=== PATIENT | female | born 1930 | race Caucasian/White ===

== ENCOUNTER 2016-08-29 15:49 | Inpatient (IN) | payer OTHER ==
[~2016-08-29] VITALS: Ht 157.5 cm; Wt 56.5 kg
[~2016-08-29 15:49] MED LIST: AMLO5TAB2 PO; CALCTAB5 PO; CARV6.252 PO; CHOL100010 PO; FURO-85 PO; LEVO75TA5 PO; NEPA0.6D OPL; PRAV10TA39 PO; PRED1SUS3 OPL; WARF5TAB90 PO
[2016-08-29] MEDS ORDERED: SODIUM CHLORIDE 0.9% 1000ML 1,000 ML IV STA (16:11)
[2016-08-29] MEDS ORDERED: CYAN1SUB2 PO (16:19)
[2016-08-29] MEDS ORDERED: CALC-478 PO (16:19)
[2016-08-29] MEDS ORDERED: WARF5TAB90 PO (16:19)
[2016-08-29] MEDS ORDERED: PRVC10 PO (16:19)
[2016-08-29] MEDS ORDERED: FSM70 PO (16:19)
[2016-08-29] MEDS ORDERED: BYS/5 PO (16:19)
[2016-08-29] MEDS ORDERED: CHOL1CAP67 PO (16:19)
[2016-08-29] MEDS ORDERED: WARF2TAB PO (16:19)
--- NOTE | 2016-08-29 16:45 | DIAGNOSTIC IMAGING REPORT ---
CHEST ONE VIEW PORTABLE CLINICAL HISTORY: Weakness. COMPARISON STUDY: Chest radiograph October 01, 2012. FINDINGS: Evaluation is significantly compromised due to difficulty patient positioning. There is no pneumothorax or pleural effusion. There is no lobar consolidation. There is no evidence of pulmonary edema. Apparent right hilar fullness is likely due to patient rotation. IMPRESSION: 1. Study significantly compromised due to difficulty with positioning. 2. No definite acute cardiopulmonary findings. Electronically signed by: Mike Rosales M.D. 08/29/2016 4:43 PM Dictated Date/Time: 08/29/2016 4:42 PM
[2016-08-29 16:57] LABS: BASO % 0.4 %; BASO ABS # 0.02 K/uL (0-0.2); COMPLETE YES; EOS % 0.2 %; HEMATOCRIT 30.6 % (37-47); IG% 0.2 %; LYMPH % 13.2 %; LYMPH ABS # 0.59 K/uL (1.2-3.4); MEAN CELL VOLUME 89.5 fL (80-100); MEAN CORPUSCULAR HEMOGLOBIN 28.7 pg (25-34); MEAN PLATELET VOLUME 9.1 fL (7.4-10.4); MONO % 8.5 %; NEUT % 77.5 %; PLATELET COUNT 263 K/uL (130-400); RED BLOOD COUNT 3.42 M/uL (4.2-5.4); WHITE BLOOD COUNT 4.48 K/uL (4.8-10.8)
[2016-08-29 17:03] LABS: INR 2.3 (0.9-1.1); PARTIAL THROMBOPLASTIN RATIO 1.5; PROTHROMBIN TIME (PATIENT) 25.8 SECONDS (9.0-12.0)
[2016-08-29 17:06] LABS: ALT/SGPT 18 U/L (12-78); AST/SGOT 18 U/L (15-37); BLOOD UREA NITROGEN 29 mg/dl (7-18); BUN/CREATININE RATIO 16.8 (10-20); CALCIUM 8.9 mg/dl (8.5-10.1); CARBON DIOXIDE 25 mmol/L (21-32); CHLORIDE 109 mmol/L (98-107); GLUCOSE 156 mg/dl (70-99); MAGNESIUM 2.5 mg/dl (1.8-2.4); POTASSIUM 4.2 mmol/L (3.5-5.1); SODIUM 142 mmol/L (136-145)
--- NOTE | 2016-08-29 17:06 | DIAGNOSTIC IMAGING REPORT ---
HEAD CT NONCONTRAST CT DOSE: 614.27 mGy.cm HISTORY: EVALUATE WEAKNESS TECHNIQUE: Multiaxial CT images of the head were performed without the use of intravenous contrast. Automated exposure control was utilized for this study. Comparison: Head CT 09/29/2012. Findings: The paranasal sinuses and mastoid air cells are clear. The calvarium and skull base are intact. Moderate atrophy and microvascular ischemic changes again noted. There is no hematoma, midline shift, acute infarct. No change in the 2.9 cm hyperdense suprasellar lesion. Impression: No significant change compared to the prior study. No acute intracranial abnormality. No significant change in the 2.9 cm hyperdense suprasellar lesion. Electronically signed by: Berny Nath M.D. 08/29/2016 5:05 PM Dictated Date/Time: 08/29/2016 4:59 PM
[2016-08-29 17:14] LABS: ALKALINE PHOSPHATASE 61 U/L (45-117); CKMB/CK RATIO 2.3 (0-3.0); THYROID STIMULATING HORMONE 0.589 uIu/ml (0.300-4.500)
[2016-08-29] MEDS ORDERED: ONDANSETRON INJ 2 MG/ML 2 ML VIAL IV PRN (19:30)
[2016-08-29] MEDS ORDERED: ACETAMINOPHEN 325 MG TAB PO PRN (19:30)
[2016-08-29] MEDS ORDERED: MAGNESIUM HYDROXIDE SUSP 30 ML UDC PO PRN (19:30)
--- NOTE | 2016-08-29 19:39 | History and Physical ---
History & Physical Date & Time of Service: August 29, 2016 at 19:25 Chief Complaint: AMS Primary Care Physician: Gary Francis M.D. History of Present Illness Source: patient Pt is a 85 yo female who presents to the ER with complaints of confusion that has been worsening for over several yrs according to pts daughter. Pt is a poor historian and only oriented to name. Per daughter pt has been forgetting to eat, forgetting family members and also has been sedentary for most of the day. 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 Pt denies LOC, lightheadedness, headache, fevers, chills, diaphoresis, visual changes, neck pain, chest pain, breathing difficulties, nausea, vomiting, abdominal pain , back pain, melena, hematochezia, urinary symptoms, numbness, weakness, lymphadenopathy, rash, or other complaints. Past Medical/Surgical History Medical Problems: (1) Benign hypertension Status: Chronic (2) HYPERLIPIDEMIA NEC/NOS Status: Chronic (3) Hypertension Status: Chronic (4) INTERTROCHANTERIC FX-CL Status: Resolved Family History Cancer Heart disease Social History Smoking Status: Never Smoker Drug Use: none Marital Status: Occupational Status: retired Immunizations History of Influenza Vaccine: Yes History of Tetanus Vaccine?: Unknown History of Pneumococcal: No History of Hepatitis B Vaccine: Unknown Allergies Coded Allergies: No Known Allergies (Unverified , 08/29/16) Home Medications Scheduled Alendronate Sodium (Alendronate Sodium), 70 MG PO WK Amlodipine Besylate (Norvasc), 5 MG PO QAM Pshmqri-Vhccetsll-Onhu (Calcium & Magnesium + Zin 334-134-5 mg), 1 TAB PO DAILY Cholecalciferol (Vitamin D-3), 1,000 MG PO DAILY Cyanocobalamin (B-12-Sl), 500 MCG PO DAILY Levothyroxine Sodium (Levothyroxine Sodium), 75 MCG PO DAILY Nebivolol Hcl (Bystolic), 5 MG PO DAILY Pravastatin Sod (Pravastatin Sodium), 10 MG PO HS Warfarin Sodium (Coumadin), 2 MG PO MWF Warfarin Sodium (Coumadin), 2.5 MG PO 2XWK Review of Systems Constitutional: No chills, No fever Eyes: No eye pain, No worsening of vision ENT: No hearing loss, No unusual epistaxis Respiratory: No cough, No dyspnea on exertion, No shortness of breath, No sputum, No wheezing Cardiovascular: No PND, No chest pain, No edema, No orthopnea Abdomen: No diarrhea, No nausea, No pain, No vomiting Musculoskeletal: No joint pain, No muscle pain Genitourinary - Female: No dysuria, No urinary frequency, No urinary urgency Neurologic: No numbness/tingling, No paralysis, No weakness Psychiatric: No anhedonism, No anxiety, No depression symptoms Integumentary: No itch, No rash Physical Exam Vital Signs Date Time Temp Pulse Resp B/P Pulse Ox O2 Delivery O2 Flow Rate FiO2 08/29/16 17:49 80 19 134/58 95 Room Air 08/29/16 16:05 36.6 85 18 166/77 94 Room Air 08/29/16 16:02 86 08/29/16 15:57 94 Room Air General Appearance: WD/WN, no apparent distress Head: normocephalic, atraumatic Eyes: normal inspection, PERRL, EOMI Neck: supple, no adenopathy, thyroid normal Respiratory/Chest: chest non-tender, lungs clear, normal breath sounds Cardiovascular: regular rate, rhythm, no edema, no gallop, no JVD Abdomen/GI: normal bowel sounds, non tender, soft Back: normal inspection, no CVA tenderness, no muscle spasm, normal range of motion Extremities/Musculoskelatal: normal inspection, no calf tenderness, normal capillary refill, no pedal edema Neurologic/Psych: alert, + disoriented Skin: normal color, warm/dry, no rash Diagnostics Laboratory Results Results Past 24 Hours Test 08/29/16 16:02 08/29/16 16:35 Range/Units Bedside Glucose 180 70-90 mg/dl White Blood Count 4.48 4.8-10.8 K/uL Red Blood Count 3.42 4.2-5.4 M/uL Hemoglobin 9.8 12.0-16.0 g/dL Hematocrit 30.6 37-47 % Mean Corpuscular Volume 89.5 80-100 fL Mean Corpuscular Hemoglobin 28.7 25-34 pg Mean Corpuscular Hemoglobin Concent 32.0 32-36 g/dl Platelet Count 263 130-400 K/uL Mean Platelet Volume 9.1 7.4-10.4 fL Neutrophils (%) (Auto) 77.5 % Lymphocytes (%) (Auto) 13.2 % Monocytes (%) (Auto) 8.5 % Eosinophils (%) (Auto) 0.2 % Basophils (%) (Auto) 0.4 % Neutrophils # (Auto) 3.47 1.4-6.5 K/uL Lymphocytes # (Auto) 0.59 1.2-3.4 K/uL Monocytes # (Auto) 0.38 0.11-0.59 K/uL Eosinophils # (Auto) 0.01 0-0.5 K/uL Basophils # (Auto) 0.02 0-0.2 K/uL RDW Standard Deviation 47.4 36.4-46.3 fL RDW Coefficient of Variation 14.4 11.5-14.5 % Immature Granulocyte % (Auto) 0.2 % Immature Granulocyte # (Auto) 0.01 0.00-0.02 K/uL Prothrombin Time 25.8 9.0-12.0 SECONDS Prothromb Time International Ratio 2.3 0.9-1.1 Activated Partial Thromboplast Time 38.2 21.0-31.0 SECONDS Partial Thromboplastin Ratio 1.5 Sodium Level 142 136-145 mmol/L Potassium Level 4.2 3.5-5.1 mmol/L Chloride Level 109 98-107 mmol/L Carbon Dioxide Level 25 21-32 mmol/L Anion Gap 8.0 3-11 mmol/L Blood Urea Nitrogen 29 7-18 mg/dl Creatinine 1.70 0.60-1.20 mg/dl Est Creatinine Clear Calc Drug Dose 18.4 ml/min Estimated GFR () 30.9 Estimated GFR (Non- 26.6 BUN/Creatinine Ratio 16.8 10-20 Random Glucose 156 70-99 mg/dl Calcium Level 8.9 8.5-10.1 mg/dl Magnesium Level 2.5 1.8-2.4 mg/dl Total Bilirubin 0.3 0.2-1 mg/dl Direct Bilirubin 0.1 0-0.2 mg/dl Aspartate Amino Transf (AST/SGOT) 18 15-37 U/L Alanine Aminotransferase (ALT/SGPT) 18 12-78 U/L Alkaline Phosphatase 61 45-117 U/L Total Creatine Kinase 64 26-192 U/L Creatine Kinase MB 1.5 0.5-3.6 ng/ml Creatine Kinase MB Ratio 2.3 0-3.0 Troponin I < 0.015 0-0.045 ng/ml Total Protein 7.7 6.4-8.2 gm/dl Albumin 3.4 3.4-5.0 gm/dl Lipase 295 73-393 U/L Thyroid Stimulating Hormone (TSH) 0.589 0.300-4.500 uIu/ml Impression Assessment and Plan Pt is a pleasant 85 yo female who presents with worsening altered mental status Confusion worsening over the past few yrs likely secondary to dementia. CT head no acute intracranial abnormality with no significant change in the 2.9 cm hyperdense suprasellar lesion. Will consult PT/OT. Will further evaluate anemia with iron studies, B12 and folate and check ammonia as well. No likely infectious cause at this time. Daughter ok with placement. Will consult social media community manager. HTN cont norvasc and bystolic Previous DVT from 2013, ?if coumadin still needed Pt is FULL CODE VTE Prophylaxis VTE Risk Assessment Done? Y/N: Yes Risk Level: Moderate
[2016-08-29 20:24] LABS: FERRITIN 210.6 ng/ml (8.0-388.0)
[2016-08-29 20:35] VITALS: BP 130/82; PULSE 73; TEMP 37.1; O2SAT 94; Ht 157.5 cm; Wt 56.5 kg
[2016-08-29] MEDS: WARFARIN SOD 2 MG TAB PO SCH (21:12)
[2016-08-29] MEDS: PRAVASTATIN SOD 10 MG TAB PO SCH (21:12)
[2016-08-30 00:16] VITALS: BP 153/77; PULSE 71; TEMP 37.1; O2SAT 94
[2016-08-30 01:11] LABS: URINE APPEARANCE CLEAR (CLEAR); URINE BILIRUBIN NEG (NEG); URINE COLOR YELLOW; URINE NITRITE NEG (NEG); URINE PH 7.5 (4.5-7.5); URINE SPECIFIC GRAVITY 1.012 (1.000-1.030); UROBILINOGEN NEG (NEG)
[2016-08-30 01:14] LABS: MANUAL MICROSCOPIC REQUIRED? NO; REVIEW REQ? NO
--- NOTE | 2016-08-30 01:22 | EMERGENCY ROOM VISIT NOTE ---
History Report prepared by [place]: Erin Sims Under the Supervision of: Dr. Alexander Vidales M.D. First contact with patient: 16:01 Chief Complaint: ALTERED MENTAL STATUS Stated Complaint: AMS History of Present Illness The patient is an 85 year old female who presents to the Emergency Room with complaints of a decrease in mental status that worsened today. Per nursing staff, the patient has a history of dementia and has been increasingly combative and aggressive with her family. Nursing staff reports that the patient arrived disoriented and disheveled. Nursing staff notes that the patient's daily activities have suffered due to the decrease in mental status. The patient's daughter notes that the patient has been increasingly confused, but states that the patient does not believe her. The patient states that she has been experiencing left leg pain. The patient reports a history of hypertension and a pervious back surgery. Pt denies LOC, lightheadedness, headache, fevers, chills, diaphoresis, visual changes, neck pain, chest pain, breathing difficulties, nausea, vomiting, abdominal pain, back pain, melena, hematochezia, urinary symptoms, numbness, weakness, lymphadenopathy, rash, or other complaints. Source of History: patient, family (daughter), nursing staff Onset: today Position: other (global) Quality: other (decrease in mental status) Timing: worsening Note: Associated Symptoms: disoriented, disheveled, combative and aggressive with family, increasingly confused Review of Systems See HPI for pertinent positives and negatives. A total of ten systems were reviewed and were otherwise negative. Past Medical & Surgical Medical Problems: (1) Altered mental status (2) Benign hypertension (3) HYPERLIPIDEMIA NEC/NOS (4) Hypertension (5) INTERTROCHANTERIC FX-CL Family History Cancer Heart disease Social History Smoking Status: Never Smoker Alcohol Use: none Drug Use: none Marital Status: Housing Status: lives with family Occupation Status: retired Current/Historical Medications Scheduled Alendronate Sodium (Alendronate Sodium), 70 MG PO WK Amlodipine Besylate (Norvasc), 5 MG PO QAM Okkhujk-Kcfmsmxxm-Izze (Calcium & Magnesium + Zin 334-134-5 mg), 1 TAB PO DAILY Cholecalciferol (Vitamin D-3), 1,000 MG PO DAILY Cyanocobalamin (B-12-Sl), 500 MCG PO DAILY Levothyroxine Sodium (Levothyroxine Sodium), 75 MCG PO DAILY Nebivolol Hcl (Bystolic), 5 MG PO DAILY Pravastatin Sod (Pravastatin Sodium), 10 MG PO HS Warfarin Sodium (Coumadin), 2 MG PO MWF Warfarin Sodium (Coumadin), 2.5 MG PO 2XWK Allergies Coded Allergies: No Known Allergies (Unverified , 08/29/16) Physical Exam Vital Signs Date Time Temp Pulse Resp B/P Pulse Ox O2 Delivery O2 Flow Rate FiO2 08/29/16 17:49 80 19 134/58 95 Room Air 08/29/16 16:05 36.6 85 18 166/77 94 Room Air 08/29/16 16:02 86 08/29/16 15:57 94 Room Air Physical Exam GENERAL: Awake, alert, well-appearing, in no distress HENT: Normocephalic, atraumatic. Oropharynx unremarkable. EYES: Normal conjunctiva. Sclera non-icteric. NECK: Supple. No nuchal rigidity. FROM. No JVD. RESPIRATORY: Clear to auscultation. CARDIAC: Regular rate, normal rhythm. Extremities warm and well perfused. Pulses equal. ABDOMEN: Soft, non-distended. No tenderness to palpation. No rebound or guarding. No masses. RECTAL: Deferred. MUSCULOSKELETAL: Chest examination reveals no tenderness. The back is symmetrical on inspection without obvious abnormality. There is no CVA tenderness to palpation. No joint edema. LOWER EXTREMITIES: Chronic venous discoloration of left leg, hypertrophic skin changes. Calves are equal size bilaterally and non-tender. No edema. NEURO: Oriented to person, but not time, demented sensorium, moving arms and legs appropriately. SKIN: No rash or jaundice noted. Medical Decision & Procedures ER Provider Diagnostic Interpretation: Radiology results as stated below per my review and radiologist interpretation: CHEST ONE VIEW PORTABLE CLINICAL HISTORY: Weakness. COMPARISON STUDY: Chest radiograph October 01, 2012. FINDINGS: Evaluation is significantly compromised due to difficulty patient positioning. There is no pneumothorax or pleural effusion. There is no lobar consolidation. There is no evidence of pulmonary edema. Apparent right hilar fullness is likely due to patient rotation. IMPRESSION: 1. Study significantly compromised due to difficulty with positioning. 2. No definite acute cardiopulmonary findings. Electronically signed by: Mike Rosales M.D. 08/29/2016 4:43 PM Dictated Date/Time: 08/29/2016 4:[address] NON[address]AST CT DOSE: 614.27 mGy.cm HISTORY: EVALUATE WEAKNESS TECHNIQUE: Multiaxial CT images of the head were performed without the use of intravenous contrast. Automated exposure control was utilized for this study. Comparison: Head CT 09/29/2012. Findings: The paranasal sinuses and mastoid air cells are clear. The calvarium and skull base are intact. Moderate atrophy and microvascular ischemic changes again noted. There is no hematoma, midline shift, acute infarct. No change in the 2.9 cm hyperdense suprasellar lesion. Impression: No significant change compared to the prior study. No acute intracranial abnormality. No significant change in the 2.9 cm hyperdense suprasellar lesion. Electronically signed by: Berny Nath M.D. 08/29/2016 5:05 PM Dictated Date/Time: 08/29/2016 4:59 PM Laboratory Results 08/29/16 16:35 Red Blood Count 3.42, Mean Corpuscular Volume 89.5, Mean Corpuscular Hemoglobin 28.7, Mean Corpuscular Hemoglobin Concent 32.0, Mean Platelet Volume 9.1, Neutrophils (%) (Auto) 77.5, Lymphocytes (%) (Auto) 13.2, Monocytes (%) (Auto) 8.5, Eosinophils (%) (Auto) 0.2, Basophils (%) (Auto) 0.4, Neutrophils # (Auto) 3.47, Lymphocytes # (Auto) 0.59, Monocytes # (Auto) 0.38, Eosinophils # (Auto) 0.01, Basophils # (Auto) 0.02 08/29/16 16:35 Test 08/29/16 16:02 08/29/16 16:35 Bedside Glucose 180 mg/dl (70-90) White Blood Count 4.48 K/uL (4.8-10.8) Red Blood Count 3.42 M/uL (4.2-5.4) Hemoglobin 9.8 g/dL (12.0-16.0) Hematocrit 30.6 % (37-47) Mean Corpuscular Volume 89.5 fL (80-100) Mean Corpuscular Hemoglobin 28.7 pg (25-34) Mean Corpuscular Hemoglobin Concent 32.0 g/dl (32-36) Platelet Count 263 K/uL (130-400) Mean Platelet Volume 9.1 fL (7.4-10.4) Neutrophils (%) (Auto) 77.5 % Lymphocytes (%) (Auto) 13.2 % Monocytes (%) (Auto) 8.5 % Eosinophils (%) (Auto) 0.2 % Basophils (%) (Auto) 0.4 % Neutrophils # (Auto) 3.47 K/uL (1.4-6.5) Lymphocytes # (Auto) 0.59 K/uL (1.2-3.4) Monocytes # (Auto) 0.38 K/uL (0.11-0.59) Eosinophils # (Auto) 0.01 K/uL (0-0.5) Basophils # (Auto) 0.02 K/uL (0-0.2) RDW Standard Deviation 47.4 fL (36.4-46.3) RDW Coefficient of Variation 14.4 % (11.5-14.5) Immature Granulocyte % (Auto) 0.2 % Immature Granulocyte # (Auto) 0.01 K/uL (0.00-0.02) Prothrombin Time 25.8 SECONDS (9.0-12.0) Prothromb Time International Ratio 2.3 (0.9-1.1) Activated Partial Thromboplast Time 38.2 SECONDS (21.0-31.0) Partial Thromboplastin Ratio 1.5 Anion Gap 8.0 mmol/L (3-11) Est Creatinine Clear Calc Drug Dose 18.4 ml/min Estimated GFR () 30.9 Estimated GFR (Non- 26.6 BUN/Creatinine Ratio 16.8 (10-20) Calcium Level 8.9 mg/dl (8.5-10.1) Magnesium Level 2.5 mg/dl (1.8-2.4) Iron Level 46 mcg/dl (35-150) Total Iron Binding Capacity 267 mcg/dl (250-450) Ferritin 210.6 ng/ml (8.0-388.0) Total Bilirubin 0.3 mg/dl (0.2-1) Direct Bilirubin 0.1 mg/dl (0-0.2) Aspartate Amino Transf (AST/SGOT) 18 U/L (15-37) Alanine Aminotransferase (ALT/SGPT) 18 U/L (12-78) Alkaline Phosphatase 61 U/L (45-117) Total Creatine Kinase 64 U/L (26-192) Creatine Kinase MB 1.5 ng/ml (0.5-3.6) Creatine Kinase MB Ratio 2.3 (0-3.0) Total Protein 7.7 gm/dl (6.4-8.2) Albumin 3.4 gm/dl (3.4-5.0) Lipase 295 U/L (73-393) Thyroid Stimulating Hormone (TSH) 0.589 uIu/ml (0.300-4.500) Laboratory results reviewed by me Medications Administered Medications (Trade) Dose Ordered Sig/Mike Route Start Time Stop Time Status Last Admin Dose Admin Sodium Chloride (Nss 1000ml) 1,000 ml @ 125 mls/hr Q8H STAT IV 08/29/16 16:11 08/29/16 20:11 DC 08/29/16 16:11 125 MLS/HR ECG Indication: altered mental status Rate (beats per minute): 81 Rhythm: normal sinus Findings: no acute ischemic change, no ectopy ED Course 1611: The patient was evaluated in room A11B. A complete history and physical exam was performed. 1611: Sodium Chloride 1000 ml @ 125 mls/hr IV. 1650: I met with the patient's daughter and case management. At this time, the patient meets criteria for further evaluation and treatment. The patient's daughter reinforced decreased mental status at home. The patient failed the short term memory test with her primary care physician. She refused to take any medication. 1805: I reevaluated the patient and she is resting comfortably. I discussed the exam findings with her and her family and I discussed the treatment plan. They verbalized complete understanding and agreement. The patient will be evaluated for further treatment. 0: I discussed the patients case with ERICKA Parsons. He is going to evaluate the patient for further treatment. Medical Decision Prior records/ancillary studies reviewed and summarized above. Nursing notes reviewed and agree them. Additional history obtained from the patient's daughter. The patient's history was concerning for altered mental status. Differential diagnosis: Etiologies such as infection, hypoglycemia, electrolyte abnormalities, cardiac sources, intracerebral event, toxicologic, neurologic, dementia, as well as others were entertained. Physical examination: As above. The patient was disoriented. ER treatment provided: IV Lock Normal saline hydration. On reassessment the patient felt better. Diagnostics interpretation by me: ECG: No ischemia The labs revealed an unremarkable CBC and chemistry panel. Urinalysis negative. Cardiac markers negative. Imaging studies: Chest x-ray and CT scan as above The patient is doing ongoing per the daughter. She is disoriented. She is exhibiting signs consistent with dementia. Case management was involved. The patient was evaluated in the Emergency Room by case management. Consultation: A consultation was placed with the hospitalist. The case was discussed and diagnostics were reviewed. The patient was evaluated in the ER for further treatment. The chart was completed utilizing [employer] Speech voice recognition software. Grammatical errors, random word insertions, pronoun errors, and incomplete sentences are an occasional consequence of this system due to software limitations, ambient noise, and hardware issues. Any formal questions or concerns about the content, text, or information contained within the body of this dictation should be directly addressed to the physician for clarification. Consults Time Called: 1806 Consulting Physician: ERICKA Parsons Returned Call: [phone] I discussed the patients case with ERICKA Parsons. He is going to evaluate the patient for further treatment. Impression Primary Impression: Change in mental status Additional Impression: Dehydration Scribe Attestation The scribe's documentation has been prepared under my direction and personally reviewed by me in its entirety. I confirm that the note above accurately reflects all work, treatment, procedures, and medical decision making performed by me. Departure Information Dispostion Being Evaluated By Hospitalist Referrals Gary Francis M.D. (PCP) Problem Qualifiers
[2016-08-30] MEDS: LEVOTHYROXINE 75 MCG TAB PO SCH (05:01)
[2016-08-30 06:15] LABS: BASO % 0.3 %; BASO ABS # 0.02 K/uL (0-0.2); COMPLETE YES; EOS % 0.7 %; HEMATOCRIT 30.9 % (37-47); IG% 0.3 %; LYMPH % 10.7 %; LYMPH ABS # 0.62 K/uL (1.2-3.4); MEAN CELL VOLUME 89.3 fL (80-100); MEAN CORPUSCULAR HEMOGLOBIN 28.6 pg (25-34); MONO % 11.4 %; NEUT % 76.6 %; PLATELET COUNT 258 K/uL (130-400); RED BLOOD COUNT 3.46 M/uL (4.2-5.4); WHITE BLOOD COUNT 5.78 K/uL (4.8-10.8)
[2016-08-30 06:46] LABS: BLOOD UREA NITROGEN 29 mg/dl (7-18); BUN/CREATININE RATIO 16.4 (10-20); CALCIUM 9.2 mg/dl (8.5-10.1); CARBON DIOXIDE 24 mmol/L (21-32); CHLORIDE 111 mmol/L (98-107); GLUCOSE 93 mg/dl (70-99); POTASSIUM 4.7 mmol/L (3.5-5.1); SODIUM 142 mmol/L (136-145)
[2016-08-30 07:13] VITALS: BP 160/75; PULSE 74; TEMP 36.9; O2SAT 96
[2016-08-30] MEDS: AMLODIPINE BESYLATE 5 MG TAB PO SCH (08:06)
[2016-08-30] MEDS: NEBIVOLOL HCL 5 MG TAB PO SCH (08:06)
--- NOTE | 2016-08-30 10:42 | Clinical Documentation Query ---
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 Clinical Indicators: elevated BUN and Creatinine (BUN 29, creatinine 1.80) Decreased GFR 24.9. ED impression dehydration. Treatment: IVF, daily PRP's, Risk Factors: Age, dehydration. Query #2/2 In your clinical opinion is this patient being managed for: (X ) Metabolic encephalopathy in setting of ROMEL and dehydration. ( ) Other explanation of clinical findings (Please Explain) ( ) Unable to determine (Please Define) ( ) Need to Discuss ( ) Not Agree The medical record reflects the following clinical findings, treatment, and risk factors. Clinical Indicators: AMS. dehydration. BUN 29, creatinine 1.80, GFR 24.9, Treatment: IVF, daily PRP's, Head CT Risk Factors: Age, dehydration, ?ROMEL Please clarify and document your clinical opinion in the progress notes and discharge summary. Terms such as "probable", "suspected", "likely", "questionable", "possible", or "still to be ruled out" are acceptable. IF IN AGREEMENT, YOU MUST DOCUMENT ABOVE DIAGNOSTIC STATEMENT IN DAILY PROGRESS NOTES AND DISCHARGE SUMMARY. This document is not part of the patient's record. Thank You, Gabriel Terry, MARLIN [phone]
[2016-08-30] MEDS ORDERED: METHYLENE BLUE 0.5% 10 ML VIAL ONE (14:14)
[2016-08-30 14:51] VITALS: BP 133/70; PULSE 68; TEMP 36.8; O2SAT 96
--- NOTE | 2016-08-30 15:20 | Progress Note ---
Subjective Date of Service: August 30, 2016. Subjective Pt evaluation today including: conversation w/ patient, physical exam, chart review, lab review, review of studies, review of inpatient medication list Pt confused No agitation noted Oriented only to herself No distress noted Problem List Medical Problems: (1) Change in mental status Status: Acute (2) Dehydration Status: Acute Review of Systems Constitutional: No chills, No fever ENT: + hearing loss, No nasal symptoms, No sore throat, No unusual epistaxis Respiratory: No cough, No sputum Cardiac: No PND, No chest pain, No edema, No orthopnea Abdomen: No diarrhea, No nausea, No pain, No vomiting Musculoskeletal: No calf pain, No joint pain, No muscle pain, No swelling Female : No dysuria, No hematuria, No incontinence, No urinary frequency Neurologic: No memory loss, No numbness/tingling, No paralysis, No weakness Psychiatric: No anhedonism, No anxiety, No depression symptoms, No insomnia Objective Vital Signs Date Time Temp Pulse Resp B/P Pulse Ox O2 Delivery O2 Flow Rate FiO2 08/30/16 14:51 36.8 68 18 133/70 96 Room Air 08/30/16 08:30 Room Air 08/30/16 07:13 36.9 74 18 160/75 96 Room Air 08/30/16 01:32 Room Air 08/30/16 00:16 37.1 71 19 153/77 94 Room Air 08/29/16 20:35 37.1 73 18 130/82 94 Room Air 08/29/16 19:59 36.6 84 18 130/71 92 08/29/16 19:53 84 18 130/71 92 08/29/16 17:49 80 19 134/58 95 Room Air 08/29/16 16:05 36.6 85 18 166/77 94 Room Air 08/29/16 16:02 86 08/29/16 15:57 94 Room Air Physical Exam General Appearance: WD/WN, no apparent distress Eyes: normal inspection, PERRL, EOMI, sclerae normal Neck: supple, no adenopathy, thyroid normal, no JVD Respiratory/Chest: chest non-tender, lungs clear, normal breath sounds, no respiratory distress Cardiovascular: regular rate, rhythm, no edema, no gallop, no JVD Abdomen: normal bowel sounds, non tender, soft, no organomegaly Extremities: normal range of motion, non-tender, normal inspection, no pedal edema Neurologic/Psychiatric: alert, normal mood/affect, + disoriented Skin: normal color, warm/dry, no rash Laboratory Results Last 24 Hours Test 08/29/16 16:02 08/29/16 16:35 08/29/16 22:08 08/30/16 00:44 Bedside Glucose 180 mg/dl White Blood Count 4.48 K/uL Red Blood Count 3.42 M/uL Hemoglobin 9.8 g/dL Hematocrit 30.6 % Mean Corpuscular Volume 89.5 fL Mean Corpuscular Hemoglobin 28.7 pg Mean Corpuscular Hemoglobin Concent 32.0 g/dl Platelet Count 263 K/uL Mean Platelet Volume 9.1 fL Neutrophils (%) (Auto) 77.5 % Lymphocytes (%) (Auto) 13.2 % Monocytes (%) (Auto) 8.5 % Eosinophils (%) (Auto) 0.2 % Basophils (%) (Auto) 0.4 % Neutrophils # (Auto) 3.47 K/uL Lymphocytes # (Auto) 0.59 K/uL Monocytes # (Auto) 0.38 K/uL Eosinophils # (Auto) 0.01 K/uL Basophils # (Auto) 0.02 K/uL RDW Standard Deviation 47.4 fL RDW Coefficient of Variation 14.4 % Immature Granulocyte % (Auto) 0.2 % Immature Granulocyte # (Auto) 0.01 K/uL Prothrombin Time 25.8 SECONDS Prothromb Time International Ratio 2.3 Activated Partial Thromboplast Time 38.2 SECONDS Partial Thromboplastin Ratio 1.5 Sodium Level 142 mmol/L Potassium Level 4.2 mmol/L Chloride Level 109 mmol/L Carbon Dioxide Level 25 mmol/L Anion Gap 8.0 mmol/L Blood Urea Nitrogen 29 mg/dl Creatinine 1.70 mg/dl Est Creatinine Clear Calc Drug Dose 18.4 ml/min Estimated GFR () 30.9 Estimated GFR (Non- 26.6 BUN/Creatinine Ratio 16.8 Random Glucose 156 mg/dl Calcium Level 8.9 mg/dl Magnesium Level 2.5 mg/dl Iron Level 46 mcg/dl Total Iron Binding Capacity 267 mcg/dl Ferritin 210.6 ng/ml Total Bilirubin 0.3 mg/dl Direct Bilirubin 0.1 mg/dl Aspartate Amino Transf (AST/SGOT) 18 U/L Alanine Aminotransferase (ALT/SGPT) 18 U/L Alkaline Phosphatase 61 U/L Total Creatine Kinase 64 U/L Creatine Kinase MB 1.5 ng/ml Creatine Kinase MB Ratio 2.3 Troponin I < 0.015 ng/ml < 0.015 ng/ml Total Protein 7.7 gm/dl Albumin 3.4 gm/dl Lipase 295 U/L Thyroid Stimulating Hormone (TSH) 0.589 uIu/ml Ammonia 16.0 umol/L Vitamin B12 Level 1697 pg/mL Folate > 24.00 ng/mL Urine Color YELLOW Urine Appearance CLEAR Urine pH 7.5 Urine Specific Happy 1.012 Urine Protein NEG Urine Glucose (UA) NEG Urine Ketones NEG Urine Occult Blood NEG Urine Nitrite NEG Urine Bilirubin NEG Urine Urobilinogen NEG Urine Leukocyte Esterase NEG Test 08/30/16 05:48 08/30/16 13:45 White Blood Count 5.78 K/uL Red Blood Count 3.46 M/uL Hemoglobin 9.9 g/dL Hematocrit 30.9 % Mean Corpuscular Volume 89.3 fL Mean Corpuscular Hemoglobin 28.6 pg Mean Corpuscular Hemoglobin Concent 32.0 g/dl Platelet Count 258 K/uL Mean Platelet Volume 9.0 fL Neutrophils (%) (Auto) 76.6 % Lymphocytes (%) (Auto) 10.7 % Monocytes (%) (Auto) 11.4 % Eosinophils (%) (Auto) 0.7 % Basophils (%) (Auto) 0.3 % Neutrophils # (Auto) 4.42 K/uL Lymphocytes # (Auto) 0.62 K/uL Monocytes # (Auto) 0.66 K/uL Eosinophils # (Auto) 0.04 K/uL Basophils # (Auto) 0.02 K/uL RDW Standard Deviation 47.4 fL RDW Coefficient of Variation 14.5 % Immature Granulocyte % (Auto) 0.3 % Immature Granulocyte # (Auto) 0.02 K/uL Sodium Level 142 mmol/L Potassium Level 4.7 mmol/L Chloride Level 111 mmol/L Carbon Dioxide Level 24 mmol/L Anion Gap 7.0 mmol/L Blood Urea Nitrogen 29 mg/dl Creatinine 1.80 mg/dl Est Creatinine Clear Calc Drug Dose 17.4 ml/min Estimated GFR () 28.8 Estimated GFR (Non- 24.9 BUN/Creatinine Ratio 16.4 Random Glucose 93 mg/dl Calcium Level 9.2 mg/dl Troponin I < 0.015 ng/ml < 0.015 ng/ml Assessment and Plan Pt is a pleasant 85 yo female who presents with worsening altered mental status Confusion worsening over the past few yrs likely secondary to worsening dementia. CT head no acute intracranial abnormality with no significant change in the 2.9 cm hyperdense suprasellar lesion. Pt has refused dementia meds as an outpatient. Anemia panel unremarkable as B12, folate and iron studies WNL. 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
[2016-08-30 19:30] VITALS: BP 128/52; PULSE 64; TEMP 36.6; O2SAT 97
[2016-08-30] MEDS: PRAVASTATIN SOD 10 MG TAB PO SCH (20:57)
[2016-08-30 23:48] VITALS: BP 125/66; PULSE 58; TEMP 36.6; O2SAT 94
[2016-08-31 05:54] LABS: BASO % 0.3 %; BASO ABS # 0.01 K/uL (0-0.2); COMPLETE YES; EOS % 2.6 %; HEMATOCRIT 29.1 % (37-47); IG% 0.3 %; LYMPH % 19.4 %; LYMPH ABS # 0.75 K/uL (1.2-3.4); MEAN CELL VOLUME 89.8 fL (80-100); MEAN CORPUSCULAR HEMOGLOBIN 29.6 pg (25-34); MONO % 10.4 %; PLATELET COUNT 206 K/uL (130-400); RED BLOOD COUNT 3.24 M/uL (4.2-5.4); WHITE BLOOD COUNT 3.86 K/uL (4.8-10.8)
[2016-08-31] MEDS: LEVOTHYROXINE 75 MCG TAB PO SCH (05:54)
[2016-08-31 06:28] LABS: BUN/CREATININE RATIO 20.9 (10-20); CALCIUM 8.7 mg/dl (8.5-10.1); CREATININE 1.5 mg/dl (0.60-1.20); POTASSIUM 4.4 mmol/L (3.5-5.1)
[2016-08-31] MEDS: NEBIVOLOL HCL 5 MG TAB PO SCH (07:52)
[2016-08-31] MEDS: AMLODIPINE BESYLATE 5 MG TAB PO SCH (07:52)
[2016-08-31 14:20] VITALS: BP 146/67; PULSE 64; TEMP 36.1; O2SAT 98
[2016-08-31 16:00] VITALS: O2SAT 98
[2016-08-31] MEDS: WARFARIN SOD 2 MG TAB PO SCH (16:06)
--- NOTE | 2016-08-31 16:13 | Hospitalist Progress Note ---
Hospitalist Progress Note Date of Service August 31, 2016. (Jesse Haley CRNP) Subjective Pt evaluation today including: physical exam, chart review, lab review, review of inpatient medication list Pain: denies PO Intake: poor PO intake Voiding: incontinence Oriented to person only. No real complaints. NO CP or SOB Respiratory: No see HPI, No cough, No sputum, No wheezing, No shortness of breath, No dyspnea on exertion, No dyspnea at rest, No hemoptysis, No problem reported Cardiovascular: No see HPI, No chest pain, No orthopnea, No PND, No edema, No claudication, No palpitations, No problem reported Musculoskeletal: No see HPI, No joint pain, No muscle pain, No swelling, No calf pain, No problem reported Neurologic: + weakness (general) Additional Comments: confused. ROS is limited (Jesse Haley CRNP) Objective Vital Signs Date Time Temp Pulse Resp B/P Pulse Ox O2 Delivery O2 Flow Rate FiO2 08/31/16 14:20 36.1 64 20 146/67 98 08/31/16 08:00 Room Air 08/31/16 00:00 Room Air 08/30/16 23:48 36.6 58 18 125/66 94 Room Air 08/30/16 19:30 36.6 64 20 128/52 97 08/30/16 16:08 Room Air (Jesse Haley CRNP) Physical Exam General Appearance: no apparent distress Eyes: sclerae normal ENT: hearing grossly normal, pharynx normal Neck: supple, no JVD Respiratory/Chest: lungs clear, no respiratory distress Cardiovascular: regular rate, rhythm, no edema, no JVD Abdomen: non tender, soft Extremities: no pedal edema Neurologic/Psychiatric: alert, + disoriented (person only) (Jesse Haley CRNP) Laboratory Results Last 24 Hours Test 08/31/16 05:46 White Blood Count 3.86 K/uL Red Blood Count 3.24 M/uL Hemoglobin 9.6 g/dL Hematocrit 29.1 % Mean Corpuscular Volume 89.8 fL Mean Corpuscular Hemoglobin 29.6 pg Mean Corpuscular Hemoglobin Concent 33.0 g/dl Platelet Count 206 K/uL Mean Platelet Volume 9.0 fL Neutrophils (%) (Auto) 67.0 % Lymphocytes (%) (Auto) 19.4 % Monocytes (%) (Auto) 10.4 % Eosinophils (%) (Auto) 2.6 % Basophils (%) (Auto) 0.3 % Neutrophils # (Auto) 2.59 K/uL Lymphocytes # (Auto) 0.75 K/uL Monocytes # (Auto) 0.40 K/uL Eosinophils # (Auto) 0.10 K/uL Basophils # (Auto) 0.01 K/uL RDW Standard Deviation 47.6 fL RDW Coefficient of Variation 14.3 % Immature Granulocyte % (Auto) 0.3 % Immature Granulocyte # (Auto) 0.01 K/uL Sodium Level 142 mmol/L Potassium Level 4.4 mmol/L Chloride Level 112 mmol/L Carbon Dioxide Level 24 mmol/L Anion Gap 6.0 mmol/L Blood Urea Nitrogen 31 mg/dl Creatinine 1.50 mg/dl Est Creatinine Clear Calc Drug Dose 20.9 ml/min Estimated GFR () 35.9 Estimated GFR (Non- 31.0 BUN/Creatinine Ratio 20.9 Random Glucose 74 mg/dl Calcium Level 8.7 mg/dl (Jesse Haley, DEJAH) Assessment and Plan Pt is a pleasantly confused 85 yo female who presents with worsening altered mental status 1. Delerium superimposed on dementia vs worsening dementia. - no clear source of infection. I suspect back to baseline. - CT no acute process. CXR no acute process. UA no bacteria 2. Acute on CKD stage 3, improving - creat down to 1.5 3. HTN controlled with norvasc and bystolic 4. Weakness/ambulatory dysfunction 5. Previous DVT from 2013, ? if coumadin still needed, will continue at this time, INR therapeutic at 2.3. 6. Pt is FULL CODE 7. Disposition - needs SNF. Awaiting accepting facility then will need insurance authorization. Continued [facility] stay due to: other Discharge planning: snf facility (Jesse Haley CRNP) History Chart reviewed and I agree with plan by BERRY PLANTER (Renee Moncada MD)
[2016-08-31] MEDS: PRAVASTATIN SOD 10 MG TAB PO SCH (20:04)
[2016-09-01] VITALS: O2SAT 98
[2016-09-01] MEDS: LEVOTHYROXINE 75 MCG TAB PO SCH (05:31)
[2016-09-01 06:48] LABS: BASO % 0.7 %; BASO ABS # 0.03 K/uL (0-0.2); COMPLETE YES; EOS % 3.4 %; HEMATOCRIT 29.4 % (37-47); IG% 0.5 %; LYMPH % 17.2 %; LYMPH ABS # 0.76 K/uL (1.2-3.4); MEAN CELL VOLUME 89.1 fL (80-100); MEAN CORPUSCULAR HEMOGLOBIN 28.5 pg (25-34); MEAN PLATELET VOLUME 9.3 fL (7.4-10.4); MONO % 12.2 %; PLATELET COUNT 242 K/uL (130-400); WHITE BLOOD COUNT 4.41 K/uL (4.8-10.8)
[2016-09-01 07:16] LABS: BUN/CREATININE RATIO 20.3 (10-20); CALCIUM 8.6 mg/dl (8.5-10.1); POTASSIUM 4.4 mmol/L (3.5-5.1)
[2016-09-01 07:17] VITALS: BP 128/55; PULSE 66; TEMP 36.2; O2SAT 95
[2016-09-01] MEDS: NEBIVOLOL HCL 5 MG TAB PO SCH (07:57)
[2016-09-01] MEDS: AMLODIPINE BESYLATE 5 MG TAB PO SCH (07:57)
[2016-09-01 09:57] VITALS: O2SAT 95
--- NOTE | 2016-09-01 12:09 | Hospitalist Progress Note ---
Hospitalist Progress Note Date of Service September 01, 2016. (Jesse Haley CRNP) Subjective Pt evaluation today including: physical exam, chart review, review of inpatient medication list Pain: denies PO Intake: poor oral intake Voiding: no voiding problems resting comfortable - nurses report no significant changes - patient denies any complaints Respiratory: No see HPI, No cough, No sputum, No wheezing, No shortness of breath, No dyspnea on exertion, No dyspnea at rest, No hemoptysis, No problem reported Cardiovascular: No see HPI, No chest pain, No orthopnea, No PND, No edema, No claudication, No palpitations, No problem reported Abdomen: No see HPI, No pain, No nausea, No vomiting, No diarrhea, No constipation, No GI bleeding, No problem reported Musculoskeletal: No see HPI, No joint pain, No muscle pain, No swelling, No calf pain, No problem reported Neurologic: No see HPI, No memory loss, No paralysis, No weakness, No numbness/tingling, No vertigo, No balance problems, No problem reported Skin: No see HPI, No rash, No itch, No new/changing skin lesions, No color change, No bleeding, No problem reported (Jesse Haley CRNP) Medications reviewed (Jesse Haley CRNP) Objective Vital Signs Date Time Temp Pulse Resp B/P Pulse Ox O2 Delivery O2 Flow Rate FiO2 09/01/16 07:17 36.2 66 18 128/55 95 Room Air 09/01/16 00:00 98 Room Air 08/31/16 16:00 98 Room Air 08/31/16 14:20 36.1 64 20 146/67 98 08/31/16 08:00 Room Air (Jesse Haley CRNP) Physical Exam General Appearance: no apparent distress Eyes: sclerae normal ENT: hearing grossly normal, pharynx normal Neck: supple Respiratory/Chest: lungs clear, normal breath sounds, no respiratory distress Cardiovascular: regular rate, rhythm, no JVD, no murmur Abdomen: normal bowel sounds, non tender, soft Extremities: normal range of motion, no pedal edema Neurologic/Psychiatric: alert, + disoriented Skin: normal color (Jesse Haley CRNP) Laboratory Results Last 24 Hours Test 09/01/16 06:26 White Blood Count 4.41 K/uL Red Blood Count 3.30 M/uL Hemoglobin 9.4 g/dL Hematocrit 29.4 % Mean Corpuscular Volume 89.1 fL Mean Corpuscular Hemoglobin 28.5 pg Mean Corpuscular Hemoglobin Concent 32.0 g/dl Platelet Count 242 K/uL Mean Platelet Volume 9.3 fL Neutrophils (%) (Auto) 66.0 % Lymphocytes (%) (Auto) 17.2 % Monocytes (%) (Auto) 12.2 % Eosinophils (%) (Auto) 3.4 % Basophils (%) (Auto) 0.7 % Neutrophils # (Auto) 2.91 K/uL Lymphocytes # (Auto) 0.76 K/uL Monocytes # (Auto) 0.54 K/uL Eosinophils # (Auto) 0.15 K/uL Basophils # (Auto) 0.03 K/uL RDW Standard Deviation 47.0 fL RDW Coefficient of Variation 14.3 % Immature Granulocyte % (Auto) 0.5 % Immature Granulocyte # (Auto) 0.02 K/uL Sodium Level 142 mmol/L Potassium Level 4.4 mmol/L Chloride Level 112 mmol/L Carbon Dioxide Level 23 mmol/L Anion Gap 7.0 mmol/L Blood Urea Nitrogen 41 mg/dl Creatinine 2.00 mg/dl Est Creatinine Clear Calc Drug Dose 15.7 ml/min Estimated GFR () 25.4 Estimated GFR (Non- 21.9 BUN/Creatinine Ratio 20.3 Random Glucose 89 mg/dl Calcium Level 8.6 mg/dl (Jesse Haley, DEJAH) Assessment and Plan Pt is a pleasantly confused 85 yo female who presented with worsening altered mental status 1. Delerium superimposed on dementia vs worsening dementia. - no clear source of infection. I suspect back to baseline. - CT no acute process. CXR no acute process. UA no bacteria 2. Acute on CKD stage 3 - worsening - creat down to 1.5 yesterday - 2 today. Very poor oral intake. - repeat BMP in am - not on any nephrotoxic medications - may need to hydrate some if status worsens 3. HTN controlled with norvasc and bystolic 4. Weakness/ambulatory dysfunction - PT/OT 5. Previous DVT from 2013, ? if coumadin still needed, will continue at this time, INR therapeutic at 2.3. 6. Pt is FULL CODE 7. Disposition - needs SNF. Still awaiting accepting facility then will need insurance authorization. Continued [facility] stay due to: other Discharge planning: group home facility (Jesse Haley, DEJAH) History Chart reviewed and I agree with plan by TRANSACTIONAL ATTORNEY (Renee Moncada MD)
[2016-09-01 16:00] VITALS: O2SAT 95
[2016-09-01] MEDS: WARFARIN SOD 2.5 MG TAB PO SCH (16:28)
[2016-09-01] MEDS: PRAVASTATIN SOD 10 MG TAB PO SCH (20:06)
[2016-09-01 22:47] VITALS: BP 131/68; PULSE 77; TEMP 36.1; O2SAT 94
[2016-09-02] MEDS: LEVOTHYROXINE 75 MCG TAB PO SCH ×2 (06:16→08:58)
[2016-09-02 07:27] VITALS: BP 147/87; PULSE 78; TEMP 36.9; O2SAT 96
[2016-09-02] MEDS: NEBIVOLOL HCL 5 MG TAB PO SCH (08:57)
[2016-09-02] MEDS: AMLODIPINE BESYLATE 5 MG TAB PO SCH (08:58)
[2016-09-02 15:16] VITALS: BP 135/73; PULSE 71; TEMP 36.9; O2SAT 96
[2016-09-02 15:44] LABS: BASO % 0.6 %; BASO ABS # 0.03 K/uL (0-0.2); COMPLETE YES; EOS % 2.8 %; HEMATOCRIT 30.6 % (37-47); IG% 0.4 %; LYMPH % 11.6 %; LYMPH ABS # 0.54 K/uL (1.2-3.4); MEAN CELL VOLUME 89.7 fL (80-100); MEAN CORPUSCULAR HEMOGLOBIN 28.7 pg (25-34); MONO % 12.4 %; NEUT % 72.2 %; PLATELET COUNT 237 K/uL (130-400); RED BLOOD COUNT 3.41 M/uL (4.2-5.4); WHITE BLOOD COUNT 4.67 K/uL (4.8-10.8)
[2016-09-02 16:00] VITALS: O2SAT 96
[2016-09-02 16:06] LABS: BUN/CREATININE RATIO 25.6 (10-20); CALCIUM 8.7 mg/dl (8.5-10.1); CREATININE 1.6 mg/dl (0.60-1.20); POTASSIUM 4.5 mmol/L (3.5-5.1)
--- NOTE | 2016-09-02 16:16 | Hospitalist Progress Note ---
Hospitalist Progress Note Date of Service September 02, 2016. (Jesse Haley CRNP) Subjective Pt evaluation today including: conversation w/ patient, physical exam, lab review, review of studies, review of inpatient medication list Pain: denies PO Intake: according to aid patient is eating well Voiding: no voiding problems denies any pain, nausea, vomiting, or shortness of breath ENT: No see HPI, No hearing loss, No unusual epistaxis, No nasal symptoms, No sore throat, No tinnitus, No dental problems, No trouble swallowing, No problem reported Respiratory: No see HPI, No cough, No sputum, No wheezing, No shortness of breath, No dyspnea on exertion, No dyspnea at rest, No hemoptysis, No problem reported Abdomen: No see HPI, No pain, No nausea, No vomiting, No diarrhea, No constipation, No GI bleeding, No problem reported Musculoskeletal: No see HPI, No joint pain, No muscle pain, No swelling, No calf pain, No problem reported Neurologic: No see HPI, No memory loss, No paralysis, No weakness, No numbness/tingling, No vertigo, No balance problems, No problem reported ( Jesse Haley CRNP) Medications reviewed (Jesse Haley CRNP) Objective Vital Signs Date Time Temp Pulse Resp B/P Pulse Ox O2 Delivery O2 Flow Rate FiO2 09/02/16 15:16 36.9 71 18 135/73 96 Room Air 09/02/16 08:00 Room Air 09/02/16 07:27 36.9 78 16 147/87 96 Room Air 09/02/16 00:00 Room Air 09/01/16 22:47 36.1 77 18 131/68 94 Room Air (Jesse Haley CRNP) Physical Exam General Appearance: no apparent distress Eyes: sclerae normal ENT: hearing grossly normal, pharynx normal Neck: supple, no JVD Respiratory/Chest: chest non-tender, lungs clear, normal breath sounds Cardiovascular: regular rate, rhythm, no edema Abdomen: normal bowel sounds, non tender, soft Extremities: non-tender, no pedal edema Neurologic/Psychiatric: alert, normal mood/affect, oriented x 3 Skin: normal color, warm/dry, no rash (Jesse Haley CRNP) Laboratory Results Last 24 Hours Test 09/02/16 15:35 White Blood Count 4.67 K/uL Red Blood Count 3.41 M/uL Hemoglobin 9.8 g/dL Hematocrit 30.6 % Mean Corpuscular Volume 89.7 fL Mean Corpuscular Hemoglobin 28.7 pg Mean Corpuscular Hemoglobin Concent 32.0 g/dl Platelet Count 237 K/uL Mean Platelet Volume 9.0 fL Neutrophils (%) (Auto) 72.2 % Lymphocytes (%) (Auto) 11.6 % Monocytes (%) (Auto) 12.4 % Eosinophils (%) (Auto) 2.8 % Basophils (%) (Auto) 0.6 % Neutrophils # (Auto) 3.37 K/uL Lymphocytes # (Auto) 0.54 K/uL Monocytes # (Auto) 0.58 K/uL Eosinophils # (Auto) 0.13 K/uL Basophils # (Auto) 0.03 K/uL RDW Standard Deviation 47.4 fL RDW Coefficient of Variation 14.5 % Immature Granulocyte % (Auto) 0.4 % Immature Granulocyte # (Auto) 0.02 K/uL Sodium Level 144 mmol/L Potassium Level 4.5 mmol/L Chloride Level 113 mmol/L Carbon Dioxide Level 24 mmol/L Anion Gap 7.0 mmol/L Blood Urea Nitrogen 41 mg/dl Creatinine 1.60 mg/dl Est Creatinine Clear Calc Drug Dose 19.6 ml/min Estimated GFR () 33.2 Estimated GFR (Non- 28.7 BUN/Creatinine Ratio 25.6 Random Glucose 92 mg/dl Calcium Level 8.7 mg/dl (Jesse Haley ., INPATIENT SERVICES RN) Assessment and Plan Pt is a pleasantly confused 85 yo female who presented with worsening altered mental status 1. Delerium superimposed on dementia vs worsening dementia. - no clear source of infection. I suspect back to baseline. - CT no acute process. CXR no acute process. UA no bacteria 2. Acute on CKD stage 3 - worsening - creat was 2 yesterday, down to 1.6 today. Oral intake is better and not far from baseline. - repeat BMP in am - not on any nephrotoxic medications 3. HTN controlled with norvasc and bystolic 4. Weakness/ambulatory dysfunction - PT/OT 5. Previous DVT from 2013, ? if coumadin still needed, will continue at this time, INR therapeutic at 2.3. 6. Pt is FULL CODE 7. Disposition - needs SNF. Still awaiting accepting facility. [facility] will not have been till possibly Saturday. If they have bed then will need insurance authorization. Continued [facility] stay due to: other Discharge planning: longterm facility (Jesse Haley, DEJAH) History Chart reviewed and I agree with plan by INPATIENT SERVICES RN (Renee Moncada MD)
[2016-09-02] MEDS: WARFARIN SOD 2.5 MG TAB PO SCH (16:20)
[2016-09-02 19:10] VITALS: BP 101/63; PULSE 90; TEMP 36.4; O2SAT 94
[2016-09-02] MEDS: PRAVASTATIN SOD 10 MG TAB PO SCH (20:41)
[2016-09-03] MEDS: LEVOTHYROXINE 75 MCG TAB PO SCH (06:00)
[2016-09-03 06:20] LABS: BASO % 0.4 %; BASO ABS # 0.02 K/uL (0-0.2); COMPLETE YES; EOS % 2.7 %; HEMATOCRIT 30.7 % (37-47); IG% 0.7 %; LYMPH % 16.1 %; LYMPH ABS # 0.72 K/uL (1.2-3.4); MEAN CELL VOLUME 89.8 fL (80-100); MEAN CORPUSCULAR HEMOGLOBIN 28.7 pg (25-34); MEAN CORPUSCULAR HGB CONC 31.9 g/dl (32-36); MEAN PLATELET VOLUME 8.9 fL (7.4-10.4); MONO % 9.9 %; NEUT % 70.2 %; PLATELET COUNT 243 K/uL (130-400); RED BLOOD COUNT 3.42 M/uL (4.2-5.4); WHITE BLOOD COUNT 4.46 K/uL (4.8-10.8)
[2016-09-03 06:55] LABS: BUN/CREATININE RATIO 26.2 (10-20); CREATININE 1.3 mg/dl (0.60-1.20); POTASSIUM 4.3 mmol/L (3.5-5.1)
[2016-09-03 07:19] VITALS: BP 150/71; PULSE 96; TEMP 36.9; O2SAT 94
[2016-09-03] MEDS: AMLODIPINE BESYLATE 5 MG TAB PO SCH (07:57)
[2016-09-03] MEDS: NEBIVOLOL HCL 5 MG TAB PO SCH (07:57)
[2016-09-03 14:51] VITALS: BP 131/73; PULSE 74; TEMP 36.7; O2SAT 95
--- NOTE | 2016-09-03 15:20 | Medical Student: [facility] ---
Med Student Progress Note Date of Service September 03, 2016. Subjective Pt evaluation today including: conversation w/ patient, conversation w/ family (daughter), physical exam, chart review, lab review Pain: 0 PO Intake: good Voiding: no voiding problems Ms Angeles Beck is a pleasant 85 yo female with baseline dementia on hospital day 5 for acute mental status changes. She notes no pain or issues today. She remains confused, but according to her daughter, she is near her baseline function at this time. When talking with her, she was oriented to her name, but thought she was in a restaurant in the 1960s. Review of Systems Constitutional: No problem reported Eyes: No problem reported ENT: No problem reported Respiratory: No problem reported Cardiac: No problem reported Abdomen: No problem reported Musculoskeletal: No problem reported Female : No problem reported Neurologic: + memory loss (per patient daughter, near baseline), No problem reported Psychiatric: No problem reported Objective Vital Signs Date Time Temp Pulse Resp B/P Pulse Ox O2 Delivery O2 Flow Rate FiO2 09/03/16 14:51 36.7 74 16 131/73 95 Room Air 09/03/16 08:00 Room Air 09/03/16 07:19 36.9 96 18 150/71 94 Room Air 09/03/16 00:00 Room Air 09/02/16 19:10 36.4 90 20 101/63 94 Room Air 09/02/16 16:00 96 Room Air Physical Exam Comments: Vitals: See above. General: Tired-appearing, Thin female in on no apparent distress. HEENT: EOMI, PERRLA. Mucus membranes slightly dry. No anterior/posterior cervical lymphadenopathy. CV: S1, S2. No MRG, RRR. Peripheral pulses equal and intact. Pulm: Lungs clear to auscultation diffusely. Abdomen: Soft, non-tender, non-distended. Bowel sounds active. Psych: Oriented to person, not place or time. States she's in restaurant (just finished lunch) in . Makes excuses when does not know answer to questions. MSE 4 Laboratory Results Last 24 Hours Test 09/02/16 15:35 09/03/16 05:55 White Blood Count 4.67 K/uL 4.46 K/uL Red Blood Count 3.41 M/uL 3.42 M/uL Hemoglobin 9.8 g/dL 9.8 g/dL Hematocrit 30.6 % 30.7 % Mean Corpuscular Volume 89.7 fL 89.8 fL Mean Corpuscular Hemoglobin 28.7 pg 28.7 pg Mean Corpuscular Hemoglobin Concent 32.0 g/dl 31.9 g/dl Platelet Count 237 K/uL 243 K/uL Mean Platelet Volume 9.0 fL 8.9 fL Neutrophils (%) (Auto) 72.2 % 70.2 % Lymphocytes (%) (Auto) 11.6 % 16.1 % Monocytes (%) (Auto) 12.4 % 9.9 % Eosinophils (%) (Auto) 2.8 % 2.7 % Basophils (%) (Auto) 0.6 % 0.4 % Neutrophils # (Auto) 3.37 K/uL 3.13 K/uL Lymphocytes # (Auto) 0.54 K/uL 0.72 K/uL Monocytes # (Auto) 0.58 K/uL 0.44 K/uL Eosinophils # (Auto) 0.13 K/uL 0.12 K/uL Basophils # (Auto) 0.03 K/uL 0.02 K/uL RDW Standard Deviation 47.4 fL 47.6 fL RDW Coefficient of Variation 14.5 % 14.4 % Immature Granulocyte % (Auto) 0.4 % 0.7 % Immature Granulocyte # (Auto) 0.02 K/uL 0.03 K/uL Sodium Level 144 mmol/L 144 mmol/L Potassium Level 4.5 mmol/L 4.3 mmol/L Chloride Level 113 mmol/L 113 mmol/L Carbon Dioxide Level 24 mmol/L 24 mmol/L Anion Gap 7.0 mmol/L 7.0 mmol/L Blood Urea Nitrogen 41 mg/dl 34 mg/dl Creatinine 1.60 mg/dl 1.30 mg/dl Est Creatinine Clear Calc Drug Dose 19.6 ml/min 24.1 ml/min Estimated GFR () 33.2 42.7 Estimated GFR (Non- 28.7 36.9 BUN/Creatinine Ratio 25.6 26.2 Random Glucose 92 mg/dl 83 mg/dl Calcium Level 8.7 mg/dl 9.0 mg/dl Assessment and Plan Assessment and Plan: Ms Angeles Beck is a pleasant 85 yo female on hospital day 5 for acute mental status changes with baseline dementia. Individual assessment and plan are as follows: 1. Delirium: Acute onset, likely secondary to dehydration. PO intake back to about baseline. Encourage drinking with cup in front of her on table as a reminder. 2. Dementia: Chronic. No changes at this time. 3. CKD III: Acutely elevated BUN and creatinine. Creatinine down from 2.0 now at 1.3. Likely due to dehydration. 4. HTN: BPs have been well controlled. Continue amlodipine 5mg, nebivolol 5mg. 5. Weakness: Likely secondary to sedentary lifestyle. Will recommend PT with discharge for fall risk reduction. 6. DVT Proph: On warfarin for PE several years ago. Will continue warfarin due to sedentary lifestyle 7. Dispo: Discharge to SNF tomorrow pending insurance approval. Cleared medically. Continued [facility] stay due to: other Discharge planning: retirement facility
[2016-09-03 16:00] VITALS: O2SAT 95
--- NOTE | 2016-09-03 16:02 | Progress Note ---
Subjective Date of Service: September 03, 2016. Subjective Pt evaluation today including: conversation w/ patient, physical exam, lab review, review of inpatient medication list Pain: denies pain PO Intake: adequate Voiding: no voiding problems patient is awake and pleasant oriented to person only, thinks she is in restaurant, no idea of year, season, month family at bedside confirmed she is at baseline Problem List Medical Problems: (1) Change in mental status Status: Acute (2) Dehydration Status: Acute Review of Systems All Other Systems: Reviewed and Negative Medications Current Inpatient Medications Medications (Trade) Dose Ordered Sig/Mike Route Start Time Stop Time Status Last Admin Dose Admin Acetaminophen (Tylenol Tab) 650 mg Q4H PRN PO 08/29/16 19:30 09/28/16 19:29 Magnesium Hydroxide (Milk Of Magnesia Susp) 30 ml Q6H PRN PO 08/29/16 19:30 09/28/16 19:29 Ondansetron HCl (Zofran Inj) 4 mg Q6H PRN IV 08/29/16 19:30 09/28/16 19:29 Amlodipine Besylate (Norvasc Tab) 5 mg QAM PO 08/30/16 08:00 09/29/16 08:59 09/03/16 07:57 5 MG Levothyroxine Sodium (Synthroid Tab) 75 mcg DAILYBB PO 08/30/16 06:30 09/29/16 06:59 09/03/16 06:00 75 MCG Pravastatin Sodium (Pravachol Tab) 10 mg HS PO 08/29/16 21:00 09/28/16 20:59 09/02/16 20:41 10 MG Warfarin Sodium (Coumadin Tab) 2 mg MoWeFr@1600 PO 08/29/16 20:00 09/28/16 19:59 08/31/16 16:06 2 MG Warfarin Sodium (Coumadin Tab) 2.5 mg SuSa@1600 PO 09/01/16 16:00 10/01/16 15:59 09/02/16 16:20 2.5 MG Nebivolol (Bystolic Tab) 5 mg DAILY PO 08/30/16 08:00 09/29/16 08:59 09/03/16 07:57 5 MG Objective Vital Signs Date Time Temp Pulse Resp B/P Pulse Ox O2 Delivery O2 Flow Rate FiO2 09/03/16 14:51 36.7 74 16 131/73 95 Room Air 09/03/16 08:00 Room Air 09/03/16 07:19 36.9 96 18 150/71 94 Room Air 09/03/16 00:00 Room Air 09/02/16 19:10 36.4 90 20 101/63 94 Room Air 09/02/16 16:00 96 Room Air Physical Exam General Appearance: WD/WN, no apparent distress Neck: supple, no adenopathy, no JVD, trachea midline Respiratory/Chest: chest non-tender, lungs clear, normal breath sounds, no respiratory distress, no accessory muscle use Cardiovascular: regular rate, rhythm, no edema, no gallop, no JVD, no murmur Abdomen: normal bowel sounds, non tender, soft, no organomegaly Extremities: normal range of motion, non-tender, normal inspection, no pedal edema, no calf tenderness, pelvis stable 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, no motor/sensory deficits, alert, normal mood/affect, oriented x 3 Skin: normal color, warm/dry, no rash Lymphatic: no adenopathy Laboratory Results Last 24 Hours Test 09/03/16 05:55 White Blood Count 4.46 K/uL Red Blood Count 3.42 M/uL Hemoglobin 9.8 g/dL Hematocrit 30.7 % Mean Corpuscular Volume 89.8 fL Mean Corpuscular Hemoglobin 28.7 pg Mean Corpuscular Hemoglobin Concent 31.9 g/dl Platelet Count 243 K/uL Mean Platelet Volume 8.9 fL Neutrophils (%) (Auto) 70.2 % Lymphocytes (%) (Auto) 16.1 % Monocytes (%) (Auto) 9.9 % Eosinophils (%) (Auto) 2.7 % Basophils (%) (Auto) 0.4 % Neutrophils # (Auto) 3.13 K/uL Lymphocytes # (Auto) 0.72 K/uL Monocytes # (Auto) 0.44 K/uL Eosinophils # (Auto) 0.12 K/uL Basophils # (Auto) 0.02 K/uL RDW Standard Deviation 47.6 fL RDW Coefficient of Variation 14.4 % Immature Granulocyte % (Auto) 0.7 % Immature Granulocyte # (Auto) 0.03 K/uL Sodium Level 144 mmol/L Potassium Level 4.3 mmol/L Chloride Level 113 mmol/L Carbon Dioxide Level 24 mmol/L Anion Gap 7.0 mmol/L Blood Urea Nitrogen 34 mg/dl Creatinine 1.30 mg/dl Est Creatinine Clear Calc Drug Dose 24.1 ml/min Estimated GFR () 42.7 Estimated GFR (Non- 36.9 BUN/Creatinine Ratio 26.2 Random Glucose 83 mg/dl Calcium Level 9.0 mg/dl Assessment and Plan Pt is a pleasantly confused 85 yo female who presented with worsening altered mental status 1. Delerium superimposed on dementia vs worsening dementia. - no clear source of infection, renal function at baseline, electrolytes stable she is at baseline according to family acute MS changes were due to delirium CT head normal 2. Acute on CKD stage 3 - acute component resolved, Cr at 1.3, adequate UO, oral intake is sufficient 3. HTN controlled with norvasc and bystolic 4. Weakness/ambulatory dysfunction - PT/OT 5. Previous DVT from 2013, continue Coumadin, will defer to outpatient physician time to stop Coumadin 6. Pt is FULL CODE 7. Disposition - needs SNF. Still awaiting accepting facility. [facility] will not have been till possibly Saturday. If they have bed then will need insurance authorization. Continued [facility] stay due to: other Discharge planning: [facility] facility
[2016-09-03] MEDS: WARFARIN SOD 2 MG TAB PO SCH ×2 (20:19→21:00)
[2016-09-03] MEDS: PRAVASTATIN SOD 10 MG TAB PO SCH ×2 (20:19→21:00)
[2016-09-04 00:05] VITALS: BP 147/69; PULSE 64; TEMP 36.6; O2SAT 95
[2016-09-04] MEDS: LEVOTHYROXINE 75 MCG TAB PO SCH (06:30)
[2016-09-04 07:27] VITALS: BP 139/76; PULSE 86
[2016-09-04 08:12] VITALS: O2SAT 95
[2016-09-04] MEDS: NEBIVOLOL HCL 5 MG TAB PO SCH (09:00)
[2016-09-04] MEDS: AMLODIPINE BESYLATE 5 MG TAB PO SCH (09:00)
--- NOTE | 2016-09-04 09:39 | Discharge Instructions ---
Discharge Instructions Date of Service September 04, 2016. Admission Reason for Admission: Progressive dementia Discharge Discharge Diagnosis / Problem: Progressive dementia, constipation Discharge Goals Goal(s): Improve function, Specific goals (skilled care needed due to dementia) Activity Recommendations Activity Level: Assistance Required Exercise/Sports Limitations: as tolerated Shower/Bathe: no limitations . Additional Information Patient informed of condition: Yes Advance Directives: Yes DNR: No Level of Care: Skilled Communicable Disease: No Prognosis: Stable Oxygen at (LPM): no Barlow Catheter: No Instructions / Follow-Up Instructions / Follow-Up Medications: prior home medications continued - Miralax and Colace: started due to constipation, the Miralax ordered as scheduled, if she has diarrhea then could be just as needed FOLLOW UP - physician at [facility] next week Current Hospital Diet Patient's current hospital diet: Regular Diet Discharge Diet Recommended Diet: Regular Diet Pending Studies Studies pending at discharge: no Physician Orders On Transfer Additional Orders: patient on Coumadin, INR needs to be checked once a week starting Sunday 09/10 POLST Discussion: without POLST completion Medical Emergencies . Who to Call and When: Medical Emergencies: If at any time you feel your situation is an emergency, please call 911 immediately. . Non-Emergent Contact Non-Emergency issues call your: Primary Care Provider Call Non-Emergent contact if: you have a fever, you have any medication questions . . "Provider Documentation" section prepared by Reinier Valdes. . Core Measure Problem Core Measures: None [place] Drug Monitoring Program Search Results: no issues identified
--- NOTE | 2016-09-04 09:48 | Medical Student: [facility] ---
Med Student Progress Note Date of Service September 04, 2016. Subjective Pt evaluation today including: conversation w/ patient Voiding: no voiding problems Ms Angeles Beck is an 85 yo female with baseline dementia on hospital day 6 for acute mental status changes. She appears to have been dehydrated but is now back to her baseline. She has no concerns or complaints this morning other than "so many questions". She states she slept okay and has a good appetite. She denies headache, difficulty urinating or having BM, chest pain or shortness of breath. Objective Vital Signs Date Time Temp Pulse Resp B/P Pulse Ox O2 Delivery O2 Flow Rate FiO2 09/04/16 08:12 95 Room Air 09/04/16 07:27 86 18 139/76 09/04/16 00:05 36.6 64 18 147/69 95 Room Air 09/04/16 00:00 Room Air 09/03/16 20:00 Room Air 09/03/16 16:00 95 Room Air 09/03/16 14:51 36.7 74 16 131/73 95 Room Air Physical Exam Comments: Vitals: See above. General: Tired-appearing, Thin female in on no apparent distress. HEENT: EOMI, PERRLA. Mucus membranes moist. CV: S1, S2. No MRG, RRR. Pulm: Lungs clear to auscultation diffusely. Abdomen: Soft, non-tender, non-distended. Bowel sounds active. Psych: Oriented to person, not place or time. She knows her daughter's name but neither her age or her own age. Makes excuses when does not know answer to questions. Laboratory Results Last 24 Hours Test 09/04/16 04:44 Assessment and Plan Assessment and Plan: Ms Angeles Beck is a pleasant 85 yo female on hospital day 6 for acute mental status changes with baseline dementia. She is cleared for discharge to [facility]. Individual assessment and plan are as follows: 1. Delirium: Acute onset, likely secondary to dehydration. PO intake back to about baseline. Encourage drinking with cup in front of her on table as a reminder. 2. Dementia: Chronic. No changes at this time. Frequent reminder of day, location. Keep window open during day and closed at night for diurnal stimulation. 3. CKD III: Acutely elevated BUN and creatinine. Creatinine down from 2.0 now at 1.3. Likely due to dehydration. 4. HTN: BPs have been well controlled. Continue amlodipine 5mg, nebivolol 5mg. 5. Weakness: Likely secondary to sedentary lifestyle. Will recommend PT with discharge for fall risk reduction. 6. DVT Proph: On warfarin for PE several years ago. Will continue warfarin due to sedentary lifestyle 7. Dispo: Discharge to SNF today pending insurance approval, likely [facility]. Cleared medically. Continued [facility] stay due to: other Discharge planning: [facility] facility
--- NOTE | 2016-09-04 14:56 | Progress Note ---
Subjective Date of Service: September 04, 2016. Subjective Pt evaluation today including: conversation w/ patient, physical exam, review of inpatient medication list Pain: denies pain PO Intake: adequate Voiding: no voiding problems patient feeling well, no issues pleasantly confused today, at baseline awaiting placement, no beds today Problem List Medical Problems: (1) Change in mental status Status: Acute (2) Dehydration Status: Acute Review of Systems All Other Systems: Reviewed and Negative Medications Current Inpatient Medications Medications (Trade) Dose Ordered Sig/Mike Route Start Time Stop Time Status Last Admin Dose Admin Acetaminophen (Tylenol Tab) 650 mg Q4H PRN PO 08/29/16 19:30 09/28/16 19:29 Magnesium Hydroxide (Milk Of Magnesia Susp) 30 ml Q6H PRN PO 08/29/16 19:30 09/28/16 19:29 Ondansetron HCl (Zofran Inj) 4 mg Q6H PRN IV 08/29/16 19:30 09/28/16 19:29 Amlodipine Besylate (Norvasc Tab) 5 mg QAM PO 08/30/16 08:00 09/29/16 08:59 09/03/16 07:57 5 MG Levothyroxine Sodium (Synthroid Tab) 75 mcg DAILYBB PO 08/30/16 06:30 09/29/16 06:59 09/03/16 06:00 75 MCG Pravastatin Sodium (Pravachol Tab) 10 mg HS PO 08/29/16 21:00 09/28/16 20:59 09/02/16 20:41 10 MG Warfarin Sodium (Coumadin Tab) 2 mg MoWeFr@1600 PO 08/29/16 20:00 09/28/16 19:59 08/31/16 16:06 2 MG Warfarin Sodium (Coumadin Tab) 2.5 mg SuSa@1600 PO 09/01/16 16:00 10/01/16 15:59 09/02/16 16:20 2.5 MG Nebivolol (Bystolic Tab) 5 mg DAILY PO 08/30/16 08:00 09/29/16 08:59 09/03/16 07:57 5 MG Objective Vital Signs Date Time Temp Pulse Resp B/P Pulse Ox O2 Delivery O2 Flow Rate FiO2 09/04/16 08:12 95 Room Air 09/04/16 07:27 86 18 139/76 09/04/16 00:05 36.6 64 18 147/69 95 Room Air 09/04/16 00:00 Room Air 09/03/16 20:00 Room Air 09/03/16 16:00 95 Room Air Physical Exam General Appearance: WD/WN, no apparent distress Neck: supple, no adenopathy, no JVD, trachea midline Respiratory/Chest: chest non-tender, lungs clear, normal breath sounds, no respiratory distress, no accessory muscle use Cardiovascular: regular rate, rhythm, no edema, no gallop, no JVD, no murmur Abdomen: normal bowel sounds, non tender, soft, no organomegaly Extremities: normal range of motion, non-tender, normal inspection, no pedal edema, no calf tenderness 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 Delerium superimposed on dementia vs worsening dementia. - no clear source of infection, renal function at baseline, electrolytes stable she is at baseline according to family acute MS changes were due to delirium CT head normal can go to SNF once bed secured 2. Acute on CKD stage 3 - acute component resolved, adequate UO, oral intake is sufficient 3. HTN controlled with norvasc and bystolic 4. Weakness/ambulatory dysfunction - PT/OT 5. Previous DVT from 2013, continue Coumadin, will defer to outpatient physician time to stop Coumadin 6. Pt is FULL CODE 7. Disposition - needs SNF. Still awaiting accepting facility. [facility] choice, hopeful for d/c tomorrow 09/05 Continued [facility] stay due to: other Discharge planning: [facility] facility
[2016-09-04 15:09] VITALS: BP 131/78; PULSE 69; TEMP 37.1; O2SAT 96
[2016-09-04] MEDS: PRAVASTATIN SOD 10 MG TAB PO SCH (20:54)
[2016-09-04 20:57] VITALS: BP 133/70; PULSE 70
[2016-09-04 23:37] VITALS: BP 154/70; PULSE 65; TEMP 37.1; O2SAT 96
[2016-09-05 05:54] LABS: BASO % 0.4 %; BASO ABS # 0.02 K/uL (0-0.2); COMPLETE YES; EOS % 3.6 %; HEMATOCRIT 32.6 % (37-47); IG% 0.2 %; LYMPH % 18.4 %; LYMPH ABS # 0.86 K/uL (1.2-3.4); MEAN CELL VOLUME 90.8 fL (80-100); MEAN CORPUSCULAR HEMOGLOBIN 29.8 pg (25-34); MEAN CORPUSCULAR HGB CONC 32.8 g/dl (32-36); MEAN PLATELET VOLUME 9.6 fL (7.4-10.4); NEUT % 68.4 %; PLATELET COUNT 261 K/uL (130-400); RED BLOOD COUNT 3.59 M/uL (4.2-5.4); WHITE BLOOD COUNT 4.67 K/uL (4.8-10.8)
[2016-09-05] MEDS: LEVOTHYROXINE 75 MCG TAB PO SCH (06:07)
[2016-09-05 06:37] LABS: BUN/CREATININE RATIO 24.3 (10-20); CALCIUM 9.3 mg/dl (8.5-10.1); CREATININE 1.5 mg/dl (0.60-1.20); POTASSIUM 4.9 mmol/L (3.5-5.1)
[2016-09-05 07:17] VITALS: BP 156/70; PULSE 69; TEMP 36.9; O2SAT 94
[2016-09-05] MEDS: NEBIVOLOL HCL 5 MG TAB PO SCH (08:46)
[2016-09-05] MEDS: AMLODIPINE BESYLATE 5 MG TAB PO SCH (08:46)
[2016-09-05] MEDS ORDERED: POLYETHYLENE (MIRALAX) 17 GM PACK ONE (12:07)
[2016-09-05] MEDS ORDERED: NURSING VERBAL MED ORDER ONE (12:15)
--- NOTE | 2016-09-05 15:52 | Progress Note ---
Subjective Date of Service: September 05, 2016. Subjective Pt evaluation today including: conversation w/ patient, physical exam, review of inpatient medication list Pain: no pain PO Intake: adequate Voiding: no voiding problems Problem List Medical Problems: (1) Change in mental status Status: Acute (2) Dehydration Status: Acute Review of Systems All Other Systems: Reviewed and Negative Medications Current Inpatient Medications Medications (Trade) Dose Ordered Sig/Mike Route Start Time Stop Time Status Last Admin Dose Admin Acetaminophen (Tylenol Tab) 650 mg Q4H PRN PO 08/29/16 19:30 09/28/16 19:29 Magnesium Hydroxide (Milk Of Magnesia Susp) 30 ml Q6H PRN PO 08/29/16 19:30 09/28/16 19:29 Ondansetron HCl (Zofran Inj) 4 mg Q6H PRN IV 08/29/16 19:30 09/28/16 19:29 Amlodipine Besylate (Norvasc Tab) 5 mg QAM PO 08/30/16 08:00 09/29/16 08:59 09/05/16 08:46 5 MG Levothyroxine Sodium (Synthroid Tab) 75 mcg DAILYBB PO 08/30/16 06:30 09/29/16 06:59 09/05/16 06:07 75 MCG Pravastatin Sodium (Pravachol Tab) 10 mg HS PO 08/29/16 21:00 09/28/16 20:59 09/04/16 20:54 10 MG Warfarin Sodium (Coumadin Tab) 2 mg MoWeFr@1600 PO 08/29/16 20:00 09/28/16 19:59 08/31/16 16:06 2 MG Warfarin Sodium (Coumadin Tab) 2.5 mg SuSa@1600 PO 09/01/16 16:00 10/01/16 15:59 09/02/16 16:20 2.5 MG Nebivolol (Bystolic Tab) 5 mg DAILY PO 08/30/16 08:00 09/29/16 08:59 09/05/16 08:46 5 MG Objective Vital Signs Date Time Temp Pulse Resp B/P Pulse Ox O2 Delivery O2 Flow Rate FiO2 09/05/16 10:31 36.9 69 18 94 Room Air 09/05/16 09:18 Room Air 09/05/16 07:17 36.9 69 18 156/70 94 Room Air 09/05/16 00:00 Room Air 09/04/16 23:37 37.1 65 18 154/70 96 Room Air 09/04/16 20:57 70 133/70 09/04/16 16:00 Room Air Physical Exam General Appearance: WD/WN, no apparent distress Respiratory/Chest: chest non-tender, lungs clear, normal breath sounds, no respiratory distress, no accessory muscle use Cardiovascular: regular rate, rhythm, no edema, no gallop, no JVD, no murmur Abdomen: normal bowel sounds, non tender, soft, no organomegaly Extremities: normal range of motion, non-tender, normal inspection, no pedal edema, no calf tenderness 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, no motor/sensory deficits, alert, normal mood/affect, + disoriented Laboratory Results Last 24 Hours Test 09/05/16 05:25 White Blood Count 4.67 K/uL Red Blood Count 3.59 M/uL Hemoglobin 10.7 g/dL Hematocrit 32.6 % Mean Corpuscular Volume 90.8 fL Mean Corpuscular Hemoglobin 29.8 pg Mean Corpuscular Hemoglobin Concent 32.8 g/dl Platelet Count 261 K/uL Mean Platelet Volume 9.6 fL Neutrophils (%) (Auto) 68.4 % Lymphocytes (%) (Auto) 18.4 % Monocytes (%) (Auto) 9.0 % Eosinophils (%) (Auto) 3.6 % Basophils (%) (Auto) 0.4 % Neutrophils # (Auto) 3.19 K/uL Lymphocytes # (Auto) 0.86 K/uL Monocytes # (Auto) 0.42 K/uL Eosinophils # (Auto) 0.17 K/uL Basophils # (Auto) 0.02 K/uL RDW Standard Deviation 47.8 fL RDW Coefficient of Variation 14.4 % Immature Granulocyte % (Auto) 0.2 % Immature Granulocyte # (Auto) 0.01 K/uL Sodium Level 141 mmol/L Potassium Level 4.9 mmol/L Chloride Level 111 mmol/L Carbon Dioxide Level 24 mmol/L Anion Gap 6.0 mmol/L Blood Urea Nitrogen 36 mg/dl Creatinine 1.50 mg/dl Est Creatinine Clear Calc Drug Dose 20.9 ml/min Estimated GFR () 35.9 Estimated GFR (Non- 31.0 BUN/Creatinine Ratio 24.3 Random Glucose 82 mg/dl Calcium Level 9.3 mg/dl Chemistry Specimen Hemolysis Assessment and Plan Pt is a pleasantly confused 85 yo female who presented with worsening altered mental status 1. Delerium superimposed on dementia vs worsening dementia. - no clear source of infection, renal function at baseline, electrolytes stable she is at baseline according to family acute MS changes were due to delirium CT head normal can go to SNF once bed secured 2. Acute on CKD stage 3 - acute component resolved, adequate UO, oral intake is sufficient 3. HTN controlled with norvasc and bystolic 4. Weakness/ambulatory dysfunction - PT/OT 5. Previous DVT from 2013, continue Coumadin, will defer to outpatient physician time to stop Coumadin 6. Pt is FULL CODE 7. Disposition - needs SNF. Still awaiting accepting facility. [facility] is first choice no changes since yesterday, she is accepted to [facility] but still needs insurance authorization, d/c tomorrow 09/06 Continued [facility] stay due to: other Discharge planning: senior living facility
[2016-09-05 16:08] VITALS: O2SAT 94
[2016-09-05] MEDS: WARFARIN SOD 2 MG TAB PO SCH (16:40)
[2016-09-05] MEDS: PRAVASTATIN SOD 10 MG TAB PO SCH (20:56)
[2016-09-05 23:30] VITALS: BP 158/72; PULSE 64; TEMP 36.7; O2SAT 96
[2016-09-06] MEDS: LEVOTHYROXINE 75 MCG TAB PO SCH ×2 (06:19→09:17)
[2016-09-06 08:56] LABS: BASO % 0.4 %; BASO ABS # 0.02 K/uL (0-0.2); COMPLETE YES; EOS % 2.6 %; HEMATOCRIT 32.6 % (37-47); IG% 0.4 %; LYMPH % 12.2 %; LYMPH ABS # 0.61 K/uL (1.2-3.4); MEAN CELL VOLUME 89.6 fL (80-100); MEAN CORPUSCULAR HEMOGLOBIN 29.1 pg (25-34); MEAN CORPUSCULAR HGB CONC 32.5 g/dl (32-36); MEAN PLATELET VOLUME 9.1 fL (7.4-10.4); MONO % 6.2 %; NEUT % 78.2 %; PLATELET COUNT 270 K/uL (130-400); RED BLOOD COUNT 3.64 M/uL (4.2-5.4); WHITE BLOOD COUNT 5.02 K/uL (4.8-10.8)
[2016-09-06] MEDS: AMLODIPINE BESYLATE 5 MG TAB PO SCH (09:15)
[2016-09-06] MEDS: NEBIVOLOL HCL 5 MG TAB PO SCH (09:17)
[2016-09-06 09:24] LABS: BUN/CREATININE RATIO 28.9 (10-20); CREATININE 1.5 mg/dl (0.60-1.20); POTASSIUM 4.4 mmol/L (3.5-5.1)
[2016-09-06 09:32] LABS: CALCIUM 9.3 mg/dl (8.5-10.1)
[2016-09-06 15:16] VITALS: BP 111/67; PULSE 64; TEMP 36.8; O2SAT 94
--- NOTE | 2016-09-06 15:25 | Progress Note ---
Subjective Date of Service: Sep 06, 2016. Subjective Pt evaluation today including: conversation w/ patient, physical exam, review of inpatient medication list Pain: no pain PO Intake: adequate Voiding: no voiding problems denied SNF short term by insurance, tried peer to peer but also denied family planning on appeal d/w CM, planning on looking for personal care Problem List Medical Problems: (1) Change in mental status Status: Acute (2) Dehydration Status: Acute Review of Systems Constitutional: + weakness, + fatigue Neurologic: + memory loss, + weakness, + balance problems All Other Systems: Reviewed and Negative Medications Current Inpatient Medications Medications (Trade) Dose Ordered Sig/Mike Route Start Time Stop Time Status Last Admin Dose Admin Acetaminophen (Tylenol Tab) 650 mg Q4H PRN PO 08/29/16 19:30 09/28/16 19:29 Magnesium Hydroxide (Milk Of Magnesia Susp) 30 ml Q6H PRN PO 08/29/16 19:30 09/28/16 19:29 Ondansetron HCl (Zofran Inj) 4 mg Q6H PRN IV 08/29/16 19:30 09/28/16 19:29 Amlodipine Besylate (Norvasc Tab) 5 mg QAM PO 08/30/16 08:00 09/29/16 08:59 09/06/16 09:15 5 MG Levothyroxine Sodium (Synthroid Tab) 75 mcg DAILYBB PO 08/30/16 06:30 09/29/16 06:59 09/06/16 09:17 75 MCG Pravastatin Sodium (Pravachol Tab) 10 mg HS PO 08/29/16 21:00 09/28/16 20:59 09/05/16 20:56 10 MG Warfarin Sodium (Coumadin Tab) 2 mg MoWeFr@1600 PO 08/29/16 20:00 09/28/16 19:59 09/05/16 16:40 2 MG Warfarin Sodium (Coumadin Tab) 2.5 mg SuSa@1600 PO 09/01/16 16:00 10/01/16 15:59 09/02/16 16:20 2.5 MG Nebivolol (Bystolic Tab) 5 mg DAILY PO 08/30/16 08:00 09/29/16 08:59 09/06/16 09:17 5 MG Objective Vital Signs Date Time Temp Pulse Resp B/P (MAP) Pulse Ox O2 Delivery O2 Flow Rate FiO2 09/06/16 15:16 36.8 64 20 111/67 (82) 94 Room Air 09/06/16 00:00 Room Air 09/05/16 23:30 36.7 64 18 158/72 (100) 96 Room Air 09/05/16 16:08 94 Room Air Physical Exam General Appearance: WD/WN, no apparent distress ENT: normal ENT inspection, hearing grossly normal, pharynx normal Neck: supple, no adenopathy, no JVD, trachea midline Respiratory/Chest: chest non-tender, lungs clear, normal breath sounds, no respiratory distress, no accessory muscle use Cardiovascular: regular rate, rhythm, no edema, no gallop, no JVD, no murmur Abdomen: normal bowel sounds, non tender, soft, no organomegaly Extremities: normal range of motion, non-tender, normal inspection, no pedal edema, no calf tenderness, pelvis stable 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, alert, normal mood/affect, + abnormal gait, + motor weakness, + disoriented Skin: normal color, warm/dry, no rash Lymphatic: no adenopathy Laboratory Results Last 24 Hours Test 09/06/16 08:49 White Blood Count 5.02 K/uL Red Blood Count 3.64 M/uL Hemoglobin 10.6 g/dL Hematocrit 32.6 % Mean Corpuscular Volume 89.6 fL Mean Corpuscular Hemoglobin 29.1 pg Mean Corpuscular Hemoglobin Concent 32.5 g/dl Platelet Count 270 K/uL Mean Platelet Volume 9.1 fL Neutrophils (%) (Auto) 78.2 % Lymphocytes (%) (Auto) 12.2 % Monocytes (%) (Auto) 6.2 % Eosinophils (%) (Auto) 2.6 % Basophils (%) (Auto) 0.4 % Neutrophils # (Auto) 3.93 K/uL Lymphocytes # (Auto) 0.61 K/uL Monocytes # (Auto) 0.31 K/uL Eosinophils # (Auto) 0.13 K/uL Basophils # (Auto) 0.02 K/uL RDW Standard Deviation 47.1 fL RDW Coefficient of Variation 14.2 % Immature Granulocyte % (Auto) 0.4 % Immature Granulocyte # (Auto) 0.02 K/uL Sodium Level 141 mmol/L Potassium Level 4.4 mmol/L Chloride Level 110 mmol/L Carbon Dioxide Level 22 mmol/L Anion Gap 9.0 mmol/L Blood Urea Nitrogen 43 mg/dl Creatinine 1.50 mg/dl Est Creatinine Clear Calc Drug Dose 20.9 ml/min Estimated GFR () 35.9 Estimated GFR (Non- 31.0 BUN/Creatinine Ratio 28.9 Random Glucose 135 mg/dl Calcium Level 9.3 mg/dl Assessment and Plan Pt is a pleasantly confused 85 yo female who presented with worsening altered mental status 1. Delerium superimposed on dementia vs worsening dementia, now think it was just worsening dementia. - no clear source of infection, renal function at baseline, electrolytes stable she is at baseline according to family CT head normal can go to SNF once bed secured, denied insurance and denied peer to peer family appealing CM looking for personal care as back up 2. Acute on CKD stage 3 - acute component resolved, adequate UO, oral intake is sufficient 3. HTN controlled with norvasc and bystolic 4. Weakness/ambulatory dysfunction - PT/OT 5. Previous DVT from 2013, continue Coumadin, will defer to outpatient physician time to stop Coumadin 6. Pt is FULL CODE Continued [facility] stay due to: other [facility]charge planning: [facility] facility
[2016-09-06 16:22] VITALS: O2SAT 94
[2016-09-06] MEDS ORDERED: NURSING VERBAL MED ORDER ONE ×2 (17:45)
[2016-09-06] MEDS ORDERED: BISACODYL 10 MG SUPP PR PRN (18:15)
[2016-09-06] MEDS: POLYETHYLENE (MIRALAX) 17 GM PACK PO SCH (21:12)
[2016-09-06] MEDS: PRAVASTATIN SOD 10 MG TAB PO SCH (21:12)
[2016-09-07] VITALS: BP 138/68; PULSE 70; TEMP 36.7; O2SAT 95
[2016-09-07] MEDS: LEVOTHYROXINE 75 MCG TAB PO SCH (05:56)
[2016-09-07 07:58] VITALS: BP 146/74; PULSE 68; TEMP 36.4; O2SAT 94
[2016-09-07] MEDS: NEBIVOLOL HCL 5 MG TAB PO SCH (08:08)
[2016-09-07] MEDS: POLYETHYLENE (MIRALAX) 17 GM PACK PO SCH (08:08)
[2016-09-07] MEDS: AMLODIPINE BESYLATE 5 MG TAB PO SCH (08:09)
[2016-09-07] MEDS ORDERED: MRLP17X PO (12:28)
[2016-09-07] MEDS ORDERED: DOCU-94 PO (12:28)
--- NOTE | 2016-09-07 14:29 | Discharge Summary ---
Discharge Summary Date of Service Sep 07, 2016. Discharge Summary Admission Date: August 29, 2016 at 19:19 Discharge Date: September 05, 2016 [facility] Principal Diagnosis: Progressive dementia Problems/Secondary Diagnoses: Constipation H/o DVT on coumadin Immunizations: Have You Had Influenza Vaccine: Yes History of Tetanus Vaccine?: Unknown History of Pneumococcal: No History of Hepatitis B Vaccine: Unknown Procedures: none Consultations: none Medication Reconciliation New Medications: Docusate Sodium (Colace) 100 Mg Cap 1 CAP PO BID for 15 Days, #30 CAP Polyethylene (Miralax) 17 Gm Pow 17 MG PO DAILY for 30 Days, #1 BTL 2 Refills Continued Medications: Alendronate Sodium (Alendronate Sodium) 70 Mg Tab 70 MG PO WK ON SUNDAYS. DAUGHTER STATES SHE HAS NOT TAKEN THIS MED IN A FEW MONTHS, SHE SAID IT'S HARD TO GET THE MEDICATION ON A SCHEDULE TO BE GIVEN. Amlodipine Besylate (Norvasc) 5 Mg Tab 5 MG PO QAM, TAB Dtoqium-Ctotcinfu-Zgar (Calcium & Magnesium + Zin 334-134-5 mg) 1 Tab Tab 1 TAB PO DAILY Cholecalciferol (Vitamin D-3) 1,000 Unit Cap 1000 MG PO DAILY Cyanocobalamin (B-12-Sl) 1,000 Mcg Sub 500 MCG PO DAILY Levothyroxine Sodium (Levothyroxine Sodium) 75 Mcg Tab 75 MCG PO DAILY Nebivolol Hcl (Bystolic) 5 Mg Tab 5 MG PO DAILY, TAB Pravastatin Sod (Pravastatin Sodium) 10 Mg Tab 10 MG PO HS Warfarin Sodium (Coumadin) 2 Mg Tab 2 MG PO MWF, TAB Warfarin Sodium (Coumadin) 5 Mg Tab 2.5 MG PO 2XWK ON SAT&SUN Discharge Exam Patient resting this AM, no complaints. Still working on patient to have a bowel movement, abdomen soft, ND, eating her meals. Review of Systems: Constitutional: No fever, No chills, No sweats, No weight loss, No weakness , No fatigue, No problem reported Respiratory: No cough, No sputum, No wheezing, No shortness of breath, No dyspnea on exertion, No dyspnea at rest, No hemoptysis, No problem reported Cardiovascular: No chest pain, No orthopnea, No PND, No edema, No claudication, No palpitations, No problem reported Abdomen: + constipation, No pain, No nausea, No vomiting, No diarrhea, No GI bleeding, No problem reported Musculoskeletal: No joint pain, No muscle pain, No swelling, No calf pain, No problem reported Genitourinary - Female: No dysuria, No urinary frequency, No urinary urgency , No urinary incontinence Neurologic: + memory loss, + weakness, + balance problems, No paralysis, No numbness/tingling, No vertigo Psychiatric: No depression symptoms, No anhedonism, No anxiety, No insomnia , No substance abuse, No problem reported Endocrine: No fatigue, No excessive thirst, No excessive urination, No problem reported Hematologic / Lymphatic: No abnormal bleeding/bruising, No clotting problems , No swollen lymph nodes, No night sweats, No problem reported Integumentary: No rash, No itch, No new/changing skin lesions, No color change, No bleeding, No problem reported Physical Exam: General Appearance: WD/WN, no apparent distress Eyes: normal inspection, EOMI, sclerae normal Neck: supple, no adenopathy, no JVD, trachea midline Respiratory/Chest: chest non-tender, lungs clear, normal breath sounds, no respiratory distress, no accessory muscle use Cardiovascular: regular rate, rhythm, no edema, no gallop, no JVD, no murmur , normal peripheral pulses Abdomen / GI: normal bowel sounds, non tender, soft, no organomegaly Extremities: normal inspection, no calf tenderness, normal capillary refill , no pedal edema, normal range of motion, pelvis stable 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 Delerium superimposed on dementia vs worsening dementia, now think it was just worsening dementia no clear source of infection, renal function at baseline, electrolytes stable she is at baseline according to family CT head normal can go to SNF once bed secured, denied insurance and denied peer to peer family appealing accepted to [facility] today for placement 2. Acute on CKD stage 3 - acute component resolved, adequate UO, oral intake is sufficient 3. HTN controlled with norvasc and bystolic 4. Weakness/ambulatory dysfunction - PT/OT 5. Previous DVT from 2013, continue Coumadin, will defer to outpatient physician time to stop Coumadin check INR once a week, last INR was 2.3 6. Constipation: moved bowels on 08/31 eating well, no abdominal pain or distension, started on Miralax two days ago , awaiting BM continue Miralax and Colace on discharge until BM then use as needed 6. Pt is FULL CODE Total Time Spent: Less than 30 minutes This includes examination of the patient, discharge planning, medication reconciliation, and communication with other providers. Discharge Instructions Please refer to the electronic Patient Visit Report (Discharge Instructions) for additional information. Follow-Up Naz Frances physician [facility]
[2016-09-07] MEDS: WARFARIN SOD 2 MG TAB PO SCH (16:01)
[2016-11-20] MEDS ORDERED: ACET-1257 PO (11:13)
[2016-11-20] MEDS ORDERED: FERR325T5 PO (11:13)
[2017-02-05] MEDS ORDERED: ACET-1256 PO (12:25)
[2017-02-05] MEDS ORDERED: CEPH500C2 PO (12:25)
[2017-02-08] MEDS ORDERED: LCTX PO (13:21)
[2017-02-08] MEDS ORDERED: AMOX1TAB42 PO (13:21)
== END 2016-09-07 17:30 | DRG 684 ==
LOC: ENRESERVDT → ENRESERVTM → EDBD 15:49 → C.EDA 15:51 → C.4E 19:19 → C.MED 08-30 17:21
PROVIDERS: ADMIT Hospitalist; ATTEND Internal Medicine
DX: N17.9 Acute kidney failure, unspecified (principal); F03.90 Unspecified dementia, unspecified severity, without behavioral disturbance, psychotic disturbance, mood disturbance, and anxiety; N18.3 Chronic kidney disease, stage 3 (moderate); K59.00 Constipation, unspecified; I12.9 Hypertensive chronic kidney disease with stage 1 through stage 4 chronic kidney disease, or unspecified chronic kidney disease; E78.5 Hyperlipidemia, unspecified; E86.0 Dehydration; R53.1 Weakness; R26.89 Other abnormalities of gait and mobility; Z86.718 Personal history of other venous thrombosis and embolism; Z79.899 Other long term (current) drug therapy; Z79.01 Long term (current) use of anticoagulants; Z79.83 Long term (current) use of bisphosphonates

== ENCOUNTER 2016-11-11 13:39 | Emergency (ER) | payer OTHER ==
[~2016-11-11 13:39] MED LIST changes: +BYS/5 PO; +CALC-478 PO; -CALCTAB5 PO; -CARV6.252 PO; -CHOL100010 PO; +CHOL1CAP67 PO; +CYAN1SUB2 PO; +FSM70 PO; -FURO-85 PO; +MRLP17X PO; -NEPA0.6D OPL; -PRAV10TA39 PO; -PRED1SUS3 OPL; +PRVC10 PO; +WARF2TAB PO
[2016-11-11 13:49] VITALS: TEMP 37.1
[2016-11-11] MEDS ORDERED: CITA10TA4 PO (14:06)
[2016-11-11] MEDS ORDERED: GABA-112 PO (14:06)
[2016-11-11] MEDS ORDERED: LEVO100T7 PO (14:06)
[2016-11-11] MEDS ORDERED: ASPI81TA28 PO (14:06)
--- NOTE | 2016-11-11 14:28 | EMERGENCY ROOM VISIT NOTE ---
History Report prepared by Los: Erin Sims Under the Supervision of: Dr. Mickey Frank M.D. First contact with patient: 13:54 Chief Complaint: SWELLING TO EXTREMITY Stated Complaint: SWELLING History of Present Illness The patient is an 85 year old female who presents to the Emergency Room with complaints of persistent left lower leg swelling that began today. The patient states that she just noticed the swelling this morning. History limited 2/2 dementia. Per nursing records, the patient arrives via ALS from [facility]. Per staff patient has LE US + for dVT. Report sent and confirmed. Sent for evaluation. Patient denies any pain. The patient denies this ever happening in the past. The patient denies any fever, chills, cough, congestion, nausea or vomiting. The history is limited secondary to dementia. Source of History: patient, nursing staff History Limited By: dementia Onset: today Position: leg (left, lower) Quality: other (swelling) Timing: other (persistent) Associated Symptoms: + fatigue, No fevers, No chills, No cough, No nausea, No vomiting Review of Systems The HPI and ROS are limited secondary to the patient's dementia. Past Medical & Surgical Medical Problems: (1) Altered mental status (2) Benign hypertension (3) HYPERLIPIDEMIA NEC/NOS (4) Hypertension (5) INTERTROCHANTERIC FX-CL Family History Cancer Heart disease Social History Smoking Status: Never Smoker Alcohol Use: none Drug Use: none Marital Status: Housing Status: lives with family Occupation Status: retired Current/Historical Medications Scheduled Alendronate Sodium (Alendronate Sodium), 70 MG PO WK Amlodipine Besylate (Norvasc), 5 MG PO QAM Aspirin (Aspirin Ec), 81 MG PO DAILY Mcyxhfo-Mjghfxhrk-Npzj (Calcium & Magnesium + Zin 334-134-5 mg), 1 TAB PO DAILY Cholecalciferol (Vitamin D-3), 1,000 MG PO DAILY Citalopram Hydrobromide (Citalopram Hydrobromide), 10 MG PO DAILY Cyanocobalamin (B-12-Sl), 500 MCG PO DAILY Enoxaparin (Enoxaparin Sodium), 55 MG SC BID Gabapentin (Neurontin), 100 MG PO HS Levothyroxine Sodium (Levothyroxine Sodium), 100 MCG PO DAILY Nebivolol Hcl (Bystolic), 5 MG PO DAILY Pravastatin Sod (Pravastatin Sodium), 10 MG PO HS Allergies Coded Allergies: No Known Allergies (Unverified , 11/11/16) Physical Exam Vital Signs Date Time Temp Pulse Resp B/P (MAP) Pulse Ox O2 Delivery O2 Flow Rate FiO2 11/11/16 18:56 58 16 126/56 92 11/11/16 17:15 63 117/59 96 Room Air 11/11/16 15:12 55 18 120/54 95 Room Air 11/11/16 13:49 37.1 58 20 106/47 92 Room Air Physical Exam GENERAL: Limited secondary to dementia. Chronically ill appearing. HENT: Normocephalic, atraumatic. Mucous membranes are dry, cracked, with scattered patches of dry blood on lips. EYES: Normal conjunctiva. Sclera non-icteric. NECK: Supple. No nuchal rigidity. FROM. No JVD. RESPIRATORY: Breath sounds are diminished at both bases. Clear to auscultation. CARDIAC: Regular rate, normal rhythm. Extremities warm and well perfused. Pulses equal. ABDOMEN: Soft, non-distended. No tenderness to palpation. No rebound or guarding. No masses. RECTAL: Deferred. MUSCULOSKELETAL: Chest examination reveals no tenderness. The back is symmetrical on inspection without obvious abnormality. There is no CVA tenderness to palpation. No joint edema. LOWER EXTREMITIES: 3+ pitting edema to right lower extremity with scattered petechia. No crepitus or warmth, distal pulse and sensory intact. Calves are equal size bilaterally and non-tender. No edema. No discoloration. NEURO: Normal sensorium. No sensory or motor deficits noted. SKIN: No rash or jaundice noted. Medical Decision & Procedures Laboratory Results 11/11/16 15:05 Red Blood Count 3.51, Mean Corpuscular Volume 91.7, Mean Corpuscular Hemoglobin 28.5, Mean Corpuscular Hemoglobin Concent 31.1, Mean Platelet Volume 8.6, Neutrophils (%) (Auto) 73.4, Lymphocytes (%) (Auto) 11.9, Monocytes (%) (Auto) 7.6, Eosinophils (%) (Auto) 5.4, Basophils (%) (Auto) 0.4, Neutrophils # (Auto) 3.26, Lymphocytes # (Auto) 0.53, Monocytes # (Auto) 0.34, Eosinophils # (Auto) 0.24, Basophils # (Auto) 0.02 11/11/16 15:05 Test 11/11/16 15:05 White Blood Count 4.45 K/uL (4.8-10.8) Red Blood Count 3.51 M/uL (4.2-5.4) Hemoglobin 10.0 g/dL (12.0-16.0) Hematocrit 32.2 % (37-47) Mean Corpuscular Volume 91.7 fL (80-100) Mean Corpuscular Hemoglobin 28.5 pg (25-34) Mean Corpuscular Hemoglobin Concent 31.1 g/dl (32-36) Platelet Count 286 K/uL (130-400) Mean Platelet Volume 8.6 fL (7.4-10.4) Neutrophils (%) (Auto) 73.4 % Lymphocytes (%) (Auto) 11.9 % Monocytes (%) (Auto) 7.6 % Eosinophils (%) (Auto) 5.4 % Basophils (%) (Auto) 0.4 % Neutrophils # (Auto) 3.26 K/uL (1.4-6.5) Lymphocytes # (Auto) 0.53 K/uL (1.2-3.4) Monocytes # (Auto) 0.34 K/uL (0.11-0.59) Eosinophils # (Auto) 0.24 K/uL (0-0.5) Basophils # (Auto) 0.02 K/uL (0-0.2) RDW Standard Deviation 52.1 fL (36.4-46.3) RDW Coefficient of Variation 15.5 % (11.5-14.5) Immature Granulocyte % (Auto) 1.3 % Immature Granulocyte # (Auto) 0.06 K/uL (0.00-0.02) Prothrombin Time 10.6 SECONDS (9.0-12.0) Prothromb Time International Ratio 1.0 (0.9-1.1) Activated Partial Thromboplast Time 23.1 SECONDS (21.0-31.0) Partial Thromboplastin Ratio 0.9 Anion Gap 8.0 mmol/L (3-11) Estimated GFR () 42.7 Estimated GFR (Non- 36.9 BUN/Creatinine Ratio 20.8 (10-20) Calcium Level 8.9 mg/dl (8.5-10.1) Laboratory results reviewed by me Medications Administered Medications (Trade) Dose Ordered Sig/Mike Route Start Time Stop Time Status Last Admin Dose Admin Enoxaparin Sodium (Lovenox Inj) 55 mg NOW ONCE SQ 11/11/16 16:45 11/11/16 16:46 DC 11/11/16 16:48 55 MG ED Course 1403: The patient was evaluated in room B4B. A complete history and physical exam was performed. 1430: I discussed the patients case with the staff at [facility]. The patient will be discharged back to their facility after receiving anti-coagulants. 1615: Ordered Lovenox Inj 55 mg SQ. Medical Decision I reviewed the patient's past medical history, medications, and the nursing notes as described above. Differential Diagnosis include: DVT, cellulitis, abscess, venostasis. The patient presents to the emergency department with new dx of LLE DVT per HPI. Arrives to the ED in NAD, AFVSS. LLE with 3+ edema and scattered petechia. Labs unremarkable with platelets, coags wnl. H/H at baseline. Renal function at baseline with GFR > 30. Thus, lovenox may be used. I d/w snf staff and they are able to manage patient with lovenox injections. I explained however that she should be evaluated by her doctor to make a plan for long-term anticoagulation vs arrange for IVC filter. Considering the patient is likely a fall risk as she ambulates with a walker, coumadin is not likely an option, particularly with patient's h/o of refusing lab draws. Given first lovenox dose in ED with RX until final plan is determined. Patient d/c'd per instructions. Medication Reconcilliation Current Medication List: was personally reviewed by me Blood Pressure Screening Patient's blood pressure: Normal blood pressure Blood pressure disposition: Did not require urgent referral Impression Primary Impression: DVT (deep venous thrombosis) Scribe Attestation The scribe's documentation has been prepared under my direction and personally reviewed by me in its entirety. I confirm that the note above accurately reflects all work, treatment, procedures, and medical decision making performed by me. Departure Information Dispostion Home / Self-Care Prescriptions Enoxaparin (Enoxaparin Sodium) 60 Mg/0.6 Ml Inj 55 MG SC BID for 10 Days, #20 SYR Prov: Mickey Frank M.D. 11/11/16 Referrals Gary Francis M.D. (PCP) Forms HOME CARE DOCUMENTATION FORM, IMPORTANT VISIT INFORMATION, WORK / SCHOOL INSTRUCTIONS Patient Instructions Anticoagulants, DVT, My [facility] [employer] Additional Instructions Please follow up with your primary care physician tomorrow for reevaluation and to discuss her plan for further anticoagulation. Risks of anticoagulation including severe bleeding if he were to fall mostly balanced against the risks of deferring anticoagulation or obtaining an IVC filter. For now, we will treat you with Lovenox twice daily as her kidney function is appropriate. However this should also be monitored as dosing may need to be changed if her kidney function worsens. Options such as Coumadin may not be feasible as the patient in the past has has refused lab draws. Additionally Coumadin may be difficult to maintain in therapeutic range and the patient could also be a fall risk. Otherwise, novel anticoagulants may be a possibility versus pursuing an IVC filter. Otherwise, your exam and lab results did not show signs of an emergent condition. Return to the emergency department for worsening symptoms as described in the accompanying instructions.
[2016-11-11 15:17] LABS: BASO % 0.4 %; BASO ABS # 0.02 K/uL (0-0.2); COMPLETE YES; EOS % 5.4 %; HEMATOCRIT 32.2 % (37-47); IG% 1.3 %; LYMPH % 11.9 %; LYMPH ABS # 0.53 K/uL (1.2-3.4); MEAN CELL VOLUME 91.7 fL (80-100); MEAN CORPUSCULAR HEMOGLOBIN 28.5 pg (25-34); MEAN CORPUSCULAR HGB CONC 31.1 g/dl (32-36); MEAN PLATELET VOLUME 8.6 fL (7.4-10.4); MONO % 7.6 %; NEUT % 73.4 %; PLATELET COUNT 286 K/uL (130-400); RED BLOOD COUNT 3.51 M/uL (4.2-5.4); WHITE BLOOD COUNT 4.45 K/uL (4.8-10.8)
[2016-11-11 15:27] LABS: PARTIAL THROMBOPLASTIN RATIO 0.9; PROTHROMBIN TIME (PATIENT) 10.6 SECONDS (9.0-12.0)
[2016-11-11 15:34] LABS: BLOOD UREA NITROGEN 27 mg/dl (7-18); BUN/CREATININE RATIO 20.8 (10-20); CALCIUM 8.9 mg/dl (8.5-10.1); CARBON DIOXIDE 27 mmol/L (21-32); CHLORIDE 106 mmol/L (98-107); GLUCOSE 92 mg/dl (70-99); SODIUM 141 mmol/L (136-145)
[2016-11-11] MEDS ORDERED: ENOXAPARIN 40 MG/0.4 ML SYR SQ ONE (16:15)
[2016-11-11] MEDS ORDERED: LVNIS60 SC (16:23)
[2016-11-11] MEDS ORDERED: ENOXAPARIN 60 MG/0.6 ML SYR SQ ONE (16:45)
[2016-11-11 18:56] VITALS: BP 126/56; PULSE 58; O2SAT 92
[2016-11-20] MEDS ORDERED: FERR325T5 PO (11:13)
[2016-11-20] MEDS ORDERED: ACET-1257 PO (11:13)
== END 2016-11-11 18:58 | disposition home or self-care (01) ==
LOC: EDBD 13:39 → C.EDB 13:42
DX: I82.402 Acute embolism and thrombosis of unspecified deep veins of left lower extremity (principal); M79.89 Other specified soft tissue disorders; F03.90 Unspecified dementia, unspecified severity, without behavioral disturbance, psychotic disturbance, mood disturbance, and anxiety; I10 Essential (primary) hypertension; Z79.899 Other long term (current) drug therapy

== ENCOUNTER 2016-11-14 11:05 | Inpatient (IN) | payer OTHER ==
[~2016-11-14] VITALS: Ht 157.5 cm; Wt 52.3 kg
[2016-11-14] VITALS (8 sets, daily range): BP systolic 107–137; BP diastolic 62–76; PULSE 63–78; TEMP 35.5–37.1; O2SAT 94–96; Ht 157.5 cm; Wt 52.3 kg
[~2016-11-14 11:05] MED LIST changes: +ASPI81TA28 PO; +CITA10TA4 PO; +GABA-112 PO; +LEVO100T7 PO; -LEVO75TA5 PO; +LVNIS60 SC; -MRLP17X PO; -WARF2TAB PO; -WARF5TAB90 PO
[2016-11-14] MEDS ORDERED: MRLP17X PO (12:16)
[2016-11-14 12:53] LABS: BASO % 0.6 %; BASO ABS # 0.03 K/uL (0-0.2); EOS % 4.5 %; HEMATOCRIT 26.2 % (37-47); IG% 1.1 %; LYMPH % 13.1 %; LYMPH ABS # 0.61 K/uL (1.2-3.4); MEAN CELL VOLUME 91.3 fL (80-100); MEAN CORPUSCULAR HEMOGLOBIN 28.9 pg (25-34); MEAN CORPUSCULAR HGB CONC 31.7 g/dl (32-36); MEAN PLATELET VOLUME 8.7 fL (7.4-10.4); MONO % 10.5 %; NEUT % 70.2 %; PLATELET COUNT 289 K/uL (130-400); RED BLOOD COUNT 2.87 M/uL (4.2-5.4); WHITE BLOOD COUNT 4.67 K/uL (4.8-10.8)
--- NOTE | 2016-11-14 12:54 | EMERGENCY ROOM VISIT NOTE ---
History Report prepared by Los: Michael De Anda Under the Supervision of: Dr. Dre Keys M.D. First contact with patient: 11:59 Chief Complaint: HAND PAIN/INJURY Stated Complaint: L HAND HEMATOMA & L ARM CELLULITIS History of Present Illness The patient is a 85 year old female who presents to the Emergency Room with complaints of worsening left hand, right arm and left leg bruising. Per nursing staff, the patient has some bleeding from her mouth as well. HPI limited secondary to poor cooperation. Source of History: patient History Limited By: poor cooperation Position: arm (right), hand (left), leg (left) Quality: other (bruising) Timing: worsening Review of Systems See HPI for pertinent positives & negatives. A total of 10 systems reviewed and were otherwise negative. Past Medical & Surgical Medical Problems: (1) Cataract (2) CKD (chronic kidney disease), stage III (3) Distal radius fracture, left (4) DVT (deep vein thrombosis) in (5) Dyslipidemia (6) HTN (hypertension) (7) Hypothyroidism (8) Meningioma (9) Osteoporosis (10) Pancreatic mass (11) Renal mass (12) Trochanteric fracture of femur (13) Vitamin D deficiency Surgical Problems: (1) Hx of tonsillectomy Family History Cancer Heart disease Social History Smoking Status: Never Smoker Alcohol Use: none Drug Use: none Marital Status: Housing Status: lives with family Occupation Status: retired Current/Historical Medications Scheduled Alendronate Sodium (Alendronate Sodium), 70 MG PO WK Amlodipine Besylate (Norvasc), 5 MG PO QAM Aspirin (Aspirin Ec), 81 MG PO DAILY Qbkufdu-Ubvgemkxi-Ilzs (Calcium & Magnesium + Zin 334-134-5 mg), 1 TAB PO DAILY Cholecalciferol (Vitamin D3), 1 TAB PO DAILY Citalopram Hydrobromide (Citalopram Hydrobromide), 1 TAB PO DAILY Cyanocobalamin (Vitamin B12 500MCG), 500 MCG PO DAILY Enoxaparin (Enoxaparin Sodium), 60 MG SC DAILY Gabapentin (Neurontin), 100 MG PO HS Levothyroxine Sodium (Levothyroxine Sodium), 100 MCG PO DAILY Nebivolol Hcl (Bystolic), 5 MG PO DAILY Polyethylene (Miralax), 17 GM PO DAILY Pravastatin Sodium (Pravastatin Sodium), 1 TAB PO HS Allergies Coded Allergies: No Known Allergies (Unverified , 11/15/16) Physical Exam Vital Signs Date Time Temp Pulse Resp B/P (MAP) Pulse Ox O2 Delivery O2 Flow Rate FiO2 11/14/16 12:53 56 18 119/54 94 Room Air 11/14/16 12:45 92 Room Air 11/14/16 11:13 36.7 80 17 120/60 92 Room Air Physical Exam GENERAL: Patient is a healthy-appearing well-nourished female HEAD: Normocephalic atraumatic EYES: Ocular movements intact pupils equal and react to light OROPHARYNX mucous membranes are moist no exudates present no erythema or edema present NECK: Supple no nuchal rigidity CHEST: Good equal expansion LUNGS: Clear and equal to auscultation CARDIAC: Normal S1 and S2 ABDOMEN: Soft nontender no guarding BACK: No CVA tenderness EXTREMITIES: Normal muscle strength in all groups. Diffuse bruising up the left arm. Left leg is grossly swollen. NEURO: Patient is following commands and answering questions appropriately. Alert and oriented x3 Cranial Nerves 2-12 grossly intact Medical Decision & Procedures Laboratory Results Test 11/14/16 12:32 11/14/16 13:32 Immature Granulocyte % (Auto) 1.1 % White Blood Count 4.67 K/uL (4.8-10.8) Red Blood Count 2.87 M/uL (4.2-5.4) Hemoglobin 8.3 g/dL (12.0-16.0) Hematocrit 26.2 % (37-47) Mean Corpuscular Volume 91.3 fL (80-100) Mean Corpuscular Hemoglobin 28.9 pg (25-34) Mean Corpuscular Hemoglobin Concent 31.7 g/dl (32-36) Platelet Count 289 K/uL (130-400) Mean Platelet Volume 8.7 fL (7.4-10.4) Neutrophils (%) (Auto) 70.2 % Lymphocytes (%) (Auto) 13.1 % Monocytes (%) (Auto) 10.5 % Eosinophils (%) (Auto) 4.5 % Basophils (%) (Auto) 0.6 % Neutrophils # (Auto) 3.28 K/uL (1.4-6.5) Lymphocytes # (Auto) 0.61 K/uL (1.2-3.4) Monocytes # (Auto) 0.49 K/uL (0.11-0.59) Eosinophils # (Auto) 0.21 K/uL (0-0.5) Basophils # (Auto) 0.03 K/uL (0-0.2) Immature Granulocyte # (Auto) 0.05 K/uL (0.00-0.02) Red Blood Cell Morphology Unremarkable Total Bilirubin 0.4 mg/dl (0.2-1) Aspartate Amino Transf (AST/SGOT) 21 U/L (15-37) Alanine Aminotransferase (ALT/SGPT) 17 U/L (12-78) Alkaline Phosphatase 109 U/L (45-117) Total Protein 6.4 gm/dl (6.4-8.2) Albumin 2.7 gm/dl (3.4-5.0) Globulin 3.7 gm/dl (2.5-4.0) Albumin/Globulin Ratio 0.7 (0.9-2) Prothrombin Time 11.2 SECONDS (9.0-12.0) Prothromb Time International Ratio 1.0 (0.9-1.1) Activated Partial Thromboplast Time 34.6 SECONDS (21.0-31.0) Partial Thromboplastin Ratio 1.3 Labs reviewed by ED physician. ED Course 1203: Past medical records reviewed. The patient was evaluated in room C6. A complete history and physical examination was performed. 1336: Upon reexamination the patient is resting comfortably. I discussed results and treatment plan with the patient. She verbalizes agreement and understanding. I spoke with Tamara POND from the [facility] Hospitalist Service. The patient will be evaluated for further management. Medical Decision Differential diagnosis: Etiologies such as ecchymosis, cellulitis, abscess, MRSA infection, DVT, necrotizing fasciitis, dermatitis, drug eruption, as well as others were entertained.. This is an 85-year-old female who presents emergency department complaining of multiple bruises up and down her arms after being started on Lovenox. The patient's hemoglobin has also dropped at least 2 units. The patient is very combative and will not allow staff to help her however I did discuss the case with the hospitalist service who agreed to admit the patient. Consults Time Called: 1330 Consulting Physician: Tamara POND -[facility] Returned Call: [phone] I discussed the patient's case with Tamara POND, she has agreed to evaluate the patient for further management and care. Impression Primary Impression: Hematoma Scribe Attestation The scribe's documentation has been prepared under my direction and personally reviewed by me in its entirety. I confirm that the note above accurately reflects all work, treatment, procedures, and medical decision making performed by me. Departure Information Dispostion Being Evaluated By Hospitalist Prescriptions Enoxaparin (Enoxaparin Sodium) 60 Mg/0.6 Ml Inj 60 MG SC DAILY for 10 Days, #20 SYR Prov: Tamara Prater .DEJAH 11/14/16 Referrals No Doctor, Assigned (PCP) Patient Instructions [facility]
[2016-11-14 13:12] LABS: BUN/CREATININE RATIO 18.6 (10-20); CALCIUM 8.5 mg/dl (8.5-10.1); CREATININE 1.2 mg/dl (0.60-1.20)
[2016-11-14 13:15] LABS: ALB/GLOB RATIO 0.7 (0.9-2)
[2016-11-14 13:23] LABS: COMPLETE YES
[2016-11-14 13:58] LABS: PARTIAL THROMBOPLASTIN RATIO 1.3; PROTHROMBIN TIME (PATIENT) 11.2 SECONDS (9.0-12.0)
[2016-11-14] MEDS ORDERED: HALOPERIDOL 5 MG TAB PO STA (14:13)
[2016-11-14] MEDS ORDERED: ONDANSETRON INJ 2 MG/ML 2 ML VIAL IV PRN (14:15)
[2016-11-14] MEDS ORDERED: ACETAMINOPHEN 325 MG TAB PO PRN (14:15)
[2016-11-14] MEDS ORDERED: LVNIS60 SC (14:39)
[2016-11-14] MEDS ORDERED: CITA10TA4 PO (14:39)
[2016-11-14] MEDS ORDERED: PRAV10TA39 PO (14:39)
[2016-11-14] MEDS ORDERED: CHOL1000 PO (14:39)
[2016-11-14] MEDS ORDERED: GABA-112 PO (14:39)
[2016-11-14] MEDS ORDERED: CYAN500T13 PO (14:39)
--- NOTE | 2016-11-14 15:56 | History and Physical ---
History & Physical Date & Time of Service: Nov 14, 2016 at 15:14 Chief Complaint: Left Hand Swelling Primary Care Physician: Ana Salazar M.D. History of Present Illness 85 year old female who presents to the ER from [facility] for evaluation of left hand swelling. Patient has history of DVT dating back to 2013. She was admitted to [facility] about 2 months ago for convalescence following hospital admission. Patient had been on Coumadin however while at [facility] she was refusing several blood draws and also medications at times; therefore, Coumadin was stopped. Patient had developed BLLE edema and US was obtained on 11/11/16 that demonstrated BL DVTs. She was seen in the ER on 11/11/16 and was started on Lovenox 1mg/kg BID. Since that time , patient's left hand has developed a significant hematoma. She also has had noted bleeding around the gums. Patient has underlying dementia and history is limited from her. I did speak with Justo Pa PA-C from [facility] regarding the patient. He reports that at baseline patient is noncompliant, aggressive, and confused at times. Her mental status has been unchanged from baseline. She has not had any falls recently. No abdominal pain, nausea, vomiting, diarrhea, BRBPR, or dark tarry stools. No noticeable hematuria. In the ER, patient's hgb is found to be 8.3 (down from 10.0 on 11/11). She is hemodynamically stable. 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 Status: Chronic (12) Trochanteric fracture of femur Permanent Comment: left, s/p repair Status: Chronic (13) Vitamin D deficiency Status: Chronic Surgical Problems: (1) Hx of tonsillectomy Status: Chronic Family History non contributory due to patient's advanced age Social History Smoking Status: Never Smoker Alcohol Use: none Housing status: retirement ([facility]) Immunizations History of Influenza Vaccine: Yes Influenza Vaccine Date: Feb 16, 2014 History of Tetanus Vaccine?: Yes Tetanus Immunization Date: Sep 06, 2010 History of Pneumococcal: Yes Pneumococcal Date: Oct 06, 2012 Allergies Coded Allergies: No Known Allergies (Unverified , 11/14/16) Home Medications Scheduled Alendronate Sodium (Alendronate Sodium), 70 MG PO WK Amlodipine Besylate (Norvasc), 5 MG PO QAM Aspirin (Aspirin Ec), 81 MG PO DAILY Dhmebub-Pifogxcuz-Frce (Calcium & Magnesium + Zin 334-134-5 mg), 1 TAB PO DAILY Cholecalciferol (Vitamin D3), 1 TAB PO DAILY Citalopram Hydrobromide (Citalopram Hydrobromide), 1 TAB PO DAILY Cyanocobalamin (Vitamin B12 500MCG), 500 MCG PO DAILY Enoxaparin (Enoxaparin Sodium), 60 MG SC DAILY Gabapentin (Neurontin), 100 MG PO HS Levothyroxine Sodium (Levothyroxine Sodium), 100 MCG PO DAILY Nebivolol Hcl (Bystolic), 5 MG PO DAILY Polyethylene (Miralax), 17 GM PO DAILY Pravastatin Sodium (Pravastatin Sodium), 1 TAB PO HS Review of Systems unable to be completed with patient due to underlying dementia and mental status Physical Exam Vital Signs Date Time Temp Pulse Resp B/P (MAP) Pulse Ox O2 Delivery O2 Flow Rate FiO2 11/14/16 14:56 63 15 114/50 94 11/14/16 14:24 60 17 127/56 93 Room Air 11/14/16 12:53 56 18 119/54 94 Room Air 11/14/16 12:45 92 Room Air 11/14/16 11:13 36.7 80 17 120/60 92 Room Air General Appearance: no apparent distress Head: normocephalic Eyes: normal inspection ENT: + pertinent finding (dried blood noted around patient's lips - patient declining to open mouth for further evaluation) Neck: supple, no JVD Respiratory/Chest: lungs clear, normal breath sounds, no respiratory distress Cardiovascular: regular rate, rhythm, + pertinent finding (+ 2 edema LLE) Abdomen/GI: normal bowel sounds, non tender, soft Extremities/Musculoskelatal: + pertinent finding (dorsal aspect of left hand with significant hematoma and ecchymosis, raised up ~ 3 inches, ecchymosis extending up the left forearm to the elbow, + left radial pulse and normal capillary refill; +2 edema noted to LLE, ecchymosis noted to the posterior aspect of the left calf, leg is soft, + 2 left pedal pulses) Neurologic/Psych: no motor/sensory deficits, alert (forgetful, poor insight), + disoriented (to time) Skin: normal color, warm/dry Diagnostics Laboratory Results Results Past 24 Hours Test 11/14/16 12:32 11/14/16 13:32 Range/Units White Blood Count 4.67 4.8-10.8 K/uL Red Blood Count 2.87 4.2-5.4 M/uL Hemoglobin 8.3 12.0-16.0 g/dL Hematocrit 26.2 37-47 % Mean Corpuscular Volume 91.3 80-100 fL Mean Corpuscular Hemoglobin 28.9 25-34 pg Mean Corpuscular Hemoglobin Concent 31.7 32-36 g/dl Platelet Count 289 130-400 K/uL Mean Platelet Volume 8.7 7.4-10.4 fL Neutrophils (%) (Auto) 70.2 % Lymphocytes (%) (Auto) 13.1 % Monocytes (%) (Auto) 10.5 % Eosinophils (%) (Auto) 4.5 % Basophils (%) (Auto) 0.6 % Neutrophils # (Auto) 3.28 1.4-6.5 K/uL Lymphocytes # (Auto) 0.61 1.2-3.4 K/uL Monocytes # (Auto) 0.49 0.11-0.59 K/uL Eosinophils # (Auto) 0.21 0-0.5 K/uL Basophils # (Auto) 0.03 0-0.2 K/uL RDW Standard Deviation 51.6 36.4-46.3 fL RDW Coefficient of Variation 15.3 11.5-14.5 % Immature Granulocyte % (Auto) 1.1 % Immature Granulocyte # (Auto) 0.05 0.00-0.02 K/uL Red Blood Cell Morphology Unremarkable Sodium Level 140 136-145 mmol/L Potassium Level 5.0 3.5-5.1 mmol/L Chloride Level 108 98-107 mmol/L Carbon Dioxide Level 28 21-32 mmol/L Anion Gap 4.0 3-11 mmol/L Blood Urea Nitrogen 22 7-18 mg/dl Creatinine 1.20 0.60-1.20 mg/dl Est Creatinine Clear Calc Drug Dose 26.1 ml/min Estimated GFR () 47.1 Estimated GFR (Non- 40.6 BUN/Creatinine Ratio 18.6 10-20 Random Glucose 90 70-99 mg/dl Calcium Level 8.5 8.5-10.1 mg/dl Total Bilirubin 0.4 0.2-1 mg/dl Aspartate Amino Transf (AST/SGOT) 21 15-37 U/L Alanine Aminotransferase (ALT/SGPT) 17 12-78 U/L Alkaline Phosphatase 109 45-117 U/L Total Protein 6.4 6.4-8.2 gm/dl Albumin 2.7 3.4-5.0 gm/dl Globulin 3.7 2.5-4.0 gm/dl Albumin/Globulin Ratio 0.7 0.9-2 Prothrombin Time 11.2 9.0-12.0 SECONDS Prothromb Time International Ratio 1.0 0.9-1.1 Activated Partial Thromboplast Time 34.6 21.0-31.0 SECONDS Partial Thromboplastin Ratio 1.3 Impression Assessment and Plan ANEMIA LEFT HAND HEMATOMA - admit to med/surg - patient presenting from [facility] for evaluation of left hand hematoma; patient with history of DVT however had been taken off Coumadin fairly recently due to non compliance with blood draws and medications; recently found to have recurrent BLLE DVT and was started on Lovenox 1mg/kg on (noted creat clearance 21) - hgb 10.0 11/11/16 -> 8.3 today - anemia likely due to blood loss from the large left hand hematoma; no neurovascular concerns currently; vascular checks ordered q4h - vitals currently stable, no other obvious sources of bleeding - will check head CT to evaluate for bleed d/t history of meningioma - also history of left renal mass however currently no reported hematuria or abdominal pain - low threshold for abdominal CT - orthopedics consult for possible evacuation of hematoma BL DVT - US 11/11/16 - occlusive, likely subacute to chronic DVT within the right common femoral-femoral profunda junction and left common femoral-greater saphenous vein junction - holding anticoagulation due to above - consider vascular consult for possible IVC filter HTN - BP controlled, continue amlodipine and Bystolic HYPOTHYROIDISM - continue levothyroxine DEMENTIA - continue home meds DVT PROPHYLAXIS - no pharmacologic prophylaxis due to hematoma / anemia - will hold on SCDs for now as well due to risk of easy bleeding / bruising CODE STATUS - Patient is a DNR as per review of retirement records. DISPO - In my clinical judgment this beneficiary meets acute admission criteria, established by [facility], that includes being hospitalized through two midnights. VTE Prophylaxis VTE Risk Assessment Done? Y/N: Yes Risk Level: High Given or contraindicated: Contraindicated (no anticoagulation due to hematomas , no SCD's due to acute DVT's) Note CT negative for pulmonary embolism, but suggested infiltrates of the lung basis and left upper lobe consistent with pneumonia. Record reviewed. Patient interviewed and examined. Care coordinated with DEJAH Goncalves. Please refer to her documentation for patient's history. Briefly, 85 YO female with history of dementia and other problems as noted. Found to have bilateral proximal DVT's per venous duplex performed at [facility] and seen in ED on 11/11. Started on enoxaparin and returned to [facility]. Subsequently noted to have bleeding from gums and large hematoma of left hand; no apparent trauma. EXAM: (exam very limited because pt did not wish to be examined) General- appears to be chronically-ill; no acute distress VS- as noted Lungs- clear (limited exam) Heart- RRR Abdomen- soft, nontender Extremities- large hematoma dorsum left hand; capillary refill fingers about 2 sec; 2+ edema and ecchymoses LLE Neuro- somnolent, confused DATA: Lab studies as noted. ASSESSMENT AND PLAN: DVT's proximal lower extremities. Large hematoma dorsum left hand and probable hematoma LLE. Hgb 10 (11/11) --> 8.3. Ortho consulted for evacuation of hematoma left hand. Anticipate that Hgb will continue to fall, so will transfuse 1 unit pRBC's tonight in anticipation of surgery tomorrow. Consent for transfusion obtained from daughter via phone. Probably best not to resume anticoagulation. IVC filter discussed with daughter and she would like to pursue. Vascular Surgery consulted. Please refer to HOWARD Prater's documentation for discussion of other issues. Alexander Ren MD .
--- NOTE | 2016-11-14 18:27 | Progress Note ---
Progress Note Date of Service Nov 14, 2016. Progress Note 85 yo female admitted 11/14/16 from [facility] for left upper extremity hematoma and anemia (Hgb 8.3). Patient was seen in ED 11/11/16 for bilateral lower extremity DVTs and started on Lovenox. After starting on Lovenox, notes from [facility] document growing hematoma on left upper extremity without evidence of fracture or known injury (question of possible IV placement or blood draw in this arm during the ED visit). Patient has significant PMH including vascular dementia, HTN, HLD, CKD stage III, hypothyroidism, and history of renal mass, meningioma, and pancreatic mass. Pt with existing DNR. Plan for I and D of left arm in operating room on morning of 11/15/16. Patient is not cooperative on interview or exam - only answering "NO". History obtained through chart review, discussion with the patient's daughter Pretty June, and [facility]. Concerning findings on exam include severe kyphosis. Patient refused to allow an oral exam, but the patient's lips are coated in dried blood. (Prior [facility] notes state patient has bleeding from the gums) . Cardiac exam significant for systolic murmur with radiation to carotids. Last echo done in 2012 and was hyperdynamic (EF >70%), but without significant valvular disease. Labs are notable for anemia with Hgb of 8.3, PTT 34.6 and hyperkalemia with K of 5.0. Anesthesia phone consent obtained from patient's daughter. In addition to traditional risks of anesthesia, discussed risk of difficult intubation and possible bleeding from airway, with possible difficult extubation/prolonged intubation in the event of airway bleeding. Due to existing anemia and risks of surgical blood loss, daughter also consented for possible invasive monitoring. Discussed patient with orthopedic team. Orthopedic team plans to hold lovenox and allow anticoagulation status to improve overnight before attempting procedure. In preparation for OR tomorrow, plan to transfuse 1 unit overnight. Necessary labs/procedures for tomorrow include type and cross, repeat Hgb/HCT , repeat Chemistry for K check, and EKG. Orders placed by orthopedic team and daughter informed of surgerical plan for tomorrow morning by nursing staff.
--- NOTE | 2016-11-14 18:47 | DIAGNOSTIC IMAGING REPORT ---
CT HEAD WITHOUT CONTRAST (CT) CLINICAL HISTORY: Altered mental status COMPARISON STUDY: 08/29/2016 TECHNIQUE: Axial CT of the brain is performed from the vertex to the skull base. IV contrast was not administered for this examination. A dose lowering technique was utilized adhering to the principles of ALARA. CT DOSE: 823.94 mGycm FINDINGS: There is a 31 mm slightly hyperdense suprasellar mass. This is 1 to 2 mm larger than the prior study. There is no CT evidence of acute cortical infarction. There is no midline shift. There is no acute hemorrhage. There are patchy white matter hypodensities likely on a small vessel basis. There is stable mild particular dilatation, likely secondary to volume loss There is no evidence of acute sinusitis IMPRESSION: Slowly enlarging 31 mm hyperdense suprasellar mass. No evidence of acute hemorrhage. Electronically signed by: Trev Ureña M.D. 11/14/2016 6:45 PM Dictated Date/Time: 11/14/2016 6:42 PM
[2016-11-14] MEDS: PRAVASTATIN SOD 10 MG TAB PO SCH (20:34)
[2016-11-14] MEDS: GABAPENTIN 100 MG CAP PO SCH (20:34)
--- NOTE | 2016-11-14 22:00 | ORTHOPEDIC CONSULTATION ---
DATE OF CONSULTATION: 11/14/2016 HISTORY OF PRESENT ILLNESS: The patient is an 85-year-old female, who, on 11/11/2016, was diagnosed with bilateral DVTs. She was placed on Lovenox, weight based. She is also on aspirin. She does have a history of an IV in her left hand. She has been in [facility] for convalescence. She was on Coumadin previously, but she refused blood draws and had to stop Coumadin. She had developed bilateral lower extremity DVTs noted. Her concern for orthopedic evaluation was a swelling in her left hand, which was marked, and her left leg. PAST MEDICAL HISTORY: Positive for dementia, chronic kidney disease, cataracts, ORIF radius fracture, left. She has had a chronic DVT history. She has had dyslipidemia, hypertension, hypothyroidism, meningioma, osteoporosis, history of pancreatic mass, renal mass, trochanteric femoral fracture, which I performed fixation for in 2012, vitamin D deficiency, history of tonsillectomy. HOME MEDICATIONS: Alendronate sodium, Norvasc, aspirin, calcium and magnesium, vitamin D, citalopram hydrobromide, vitamin B12, Lovenox, Neurontin, levothyroxine, Bystolic, MiraLax and pravastatin. REVIEW OF SYSTEMS: Not obtainable. Her closest relative is her daughter, Jo Ann June. PHYSICAL EXAMINATION: Demonstrates she is awake and alert. She is a little bit combative if you try to move her or manipulate her at all. Her left hand, she has a large hematoma of the dorsum of her hand, it is a completely purplish discoloration and she has purplish discoloration extending up to her elbow. She has good capillary refill in all the digits. She can move her fingers. Her area of swelling is encompassing the entire dorsum of the hand, it is probably 4 cm expanded on to the dorsum of her hand, away from the normal size of the dorsum of the hand and the width is probably 5-6 cm with 7-8 cm in length of a massive hematoma. She has got good capillary refill in all digits. The left leg, she has some swelling in her upper calf with some superficial hematoma and some fracture blisters posteriorly, but compartments are not tense and she had an intact dorsalis pedis pulse on that and decent capillary refill on that leg. ASSESSMENT: Anticoagulant-related hematoma, left and no evidence of any infection. She has hematoma of the left calf. She does not have evidence of any compartment syndrome. The left hand does have a significant risk for skin necrosis due to the massive tense hematoma. There is recommendation that we go ahead and perform an I&D of this, which could be performed with a dorsal incision and using suction and expressing the wound. We do have to consult Dr. Blount with regard to when it is safe to proceed with this, based on the fact that she had a.m. Lovenox this morning. She has been n.p.o. since 8:00, so we will be able to go ahead and proceed with I&D at this time of this dictation. Her hemoglobin is 8, so we would need anesthesia consultation to decide whether it is safe for her to go under anesthesia at this time. The decision to proceed with this, this evening or tomorrow, will be based on the safest time to proceed with the procedure with regard to her health status. We did check the blood tests for her bleeding parameters to assess whether it is safe to proceed with regard to the Lovenox dosing at this time, as well. Thank you for this consultation. GUNJAN
[2016-11-15] VITALS (8 sets, daily range): BP systolic 108–146; BP diastolic 64–71; PULSE 66–99; TEMP 36.3–37.2; O2SAT 93–100
[2016-11-15] MEDS: LEVOTHYROXINE 100 MCG TAB PO SCH (05:52)
--- NOTE | 2016-11-15 06:32 | Progress Note ---
Progress Note Date of Service Nov 15, 2016. Progress Note Called last evening in regards to possible filter placement. Patient had developed hematomas of leg and hand while on Lovenox without any known trauma. Had DVT of the lower extremities diagnosed on Nov 11 of this year. Will need to have her anticoagulation stopped and a filter placed due to the recent DVT. This most likely will be a permanent filter. Will do consult later this am and place filter today. Thank you very much for letting me participate in the care of this patient.
[2016-11-15 08:07] LABS: HEMATOCRIT 28.2 % (37-47); MEAN CELL VOLUME 89.2 fL (80-100); MEAN CORPUSCULAR HEMOGLOBIN 28.2 pg (25-34); MEAN CORPUSCULAR HGB CONC 31.6 g/dl (32-36); MEAN PLATELET VOLUME 8.7 fL (7.4-10.4); PLATELET COUNT 263 K/uL (130-400); RED BLOOD COUNT 3.16 M/uL (4.2-5.4); WHITE BLOOD COUNT 4.09 K/uL (4.8-10.8)
[2016-11-15 08:41] LABS: CALCIUM 8.1 mg/dl (8.5-10.1); CREATININE 1.2 mg/dl (0.60-1.20); POTASSIUM 4.6 mmol/L (3.5-5.1)
[2016-11-15] MEDS: NEBIVOLOL HCL 5 MG TAB PO SCH (09:00)
[2016-11-15] MEDS: CITALOPRAM 20 MG TAB PO SCH (09:32)
[2016-11-15] MEDS: CHOLECALCIFEROL 1000 INTER.UNIT TAB PO SCH (09:32)
[2016-11-15] MEDS: POLYETHYLENE (MIRALAX) 17 GM PACK PO SCH (09:32)
[2016-11-15] MEDS: CYANOCOBALAMIN 500 MCG TAB (VIT B-12) PO SCH (09:32)
[2016-11-15] MEDS: AMLODIPINE BESYLATE 5 MG TAB PO SCH (09:32)
--- NOTE | 2016-11-15 10:22 | DIAGNOSTIC IMAGING REPORT ---
CHEST ONE VIEW PORTABLE HISTORY: hematomas, anemia COMPARISON: Chest 08/29/2016. FINDINGS: The patient's chin obscures the lung apices. No pneumothorax. No definite pleural effusions. The heart remains enlarged. Tortuous thoracic aorta. Chronic interstitial thickening is again noted. Perihilar linear densities. This favors atelectasis or scarring. Scoliosis. IMPRESSION: Chronic changes within the chest with bilateral perihilar linear densities suggesting subsegmental atelectasis or scarring. Electronically signed by: Berny Nath M.D. 11/15/2016 10:20 AM Dictated Date/Time: 11/15/2016 10:18 AM
[2016-11-15 12:00] LABS: BUN/CREATININE RATIO 18.6 (10-20); CREATININE 1.2 mg/dl (0.60-1.20); POTASSIUM 4.4 mmol/L (3.5-5.1)
[2016-11-15] MEDS ORDERED: LIDOCAINE HCL 2% 2 ML VIAL (20MG/ML) ONE (12:38)
[2016-11-15] MEDS ORDERED: PROPOFOL IV EMULSION 10 MG/ML 20 ML VIAL IV ONE (12:38)
[2016-11-15] MEDS ORDERED: KETAMINE HCL INJ 50 MG/ML 10 ML VIAL ONE (12:38)
--- NOTE | 2016-11-15 12:44 | Surgery Consultation ---
Consultation Date of Service Nov 15, 2016. Chief Complaint Hematoma hand and leg, DVT History of Present Illness The patient is a 85 year old female who had acute DVT earlier this month. Started on Lovenox and since has developed hematomas of her hand and leg. No history of trauma. At this point can not be anticoagulated Vitals Vital Signs Past 12 Hours Date Time Temp Pulse Resp B/P (MAP) Pulse Ox O2 Delivery O2 Flow Rate FiO2 11/15/16 08:40 69 16 146/71 (96) 94 Room Air 11/15/16 08:30 93 11/15/16 06:04 37.1 67 16 117/71 (86) 93 Room Air Allergies Coded Allergies: No Known Allergies (Unverified , 11/15/16) Home Medications Scheduled Alendronate Sodium (Alendronate Sodium), 70 MG PO WK Amlodipine Besylate (Norvasc), 5 MG PO QAM Aspirin (Aspirin Ec), 81 MG PO DAILY Snrjjtg-Vchsikdep-Rbmu (Calcium & Magnesium + Zin 334-134-5 mg), 1 TAB PO DAILY Cholecalciferol (Vitamin D3), 1 TAB PO DAILY Citalopram Hydrobromide (Citalopram Hydrobromide), 1 TAB PO DAILY Cyanocobalamin (Vitamin B12 500MCG), 500 MCG PO DAILY Enoxaparin (Enoxaparin Sodium), 60 MG SC DAILY Gabapentin (Neurontin), 100 MG PO HS Levothyroxine Sodium (Levothyroxine Sodium), 100 MCG PO DAILY Nebivolol Hcl (Bystolic), 5 MG PO DAILY Polyethylene (Miralax), 17 GM PO DAILY Pravastatin Sodium (Pravastatin Sodium), 1 TAB PO HS Problem List Medical Problems: (1) Cataract (2) CKD (chronic kidney disease), stage III (3) Distal radius fracture, left (4) DVT (deep vein thrombosis) in (5) Dyslipidemia (6) HTN (hypertension) (7) Hypothyroidism (8) Meningioma (9) Osteoporosis (10) Pancreatic mass (11) Renal mass (12) Trochanteric fracture of femur (13) Vitamin D deficiency Surgical Problems: (1) Hx of tonsillectomy Surgical / Medical History Hx Cardiac Surgery: No Hx Abdominal Surgery: No Hx Cancer Surgery: No Hx Thoracic Surgery: No Hx Orthopedic: Yes (hip 2012) Hx Urinary Tract Surgery: No HX Other Surgery: No Family History Cancer Heart disease Social History Smoking Status: Never Smoker Hx Tobacco Use In Past Year?: No Hx Alcohol Use - Type & Amnt: No Hx Substance Use -Type & Amnt: No Review of Systems Additional Comments: unobtainable, not cooperative Physical Exam Constitutional: General Apperance: well-nourished Level of Distress: NAD Ambulation: limited ambulation Psychiatric: Mental Status: agitated Lungs: Auscultation: breath sounds normal Cardiovascular: Heart Auscultation: RRR Abdomen: Inspection & Palpation: soft Extremities: Upper Right: no cyanosis, no edema, no varicosities, no palpable cord, no clubbing, no ulcers, no mottling Upper Left: no cyanosis, no edema, no palpable cord, no clubbing, no ulcers , no mottling Lower Right: no cyanosis, no edema, no varicosities, no palpable cord, no clubbing, no ulcers, no mottling Lower Left: no cyanosis, no edema, no varicosities, no palpable cord, no clubbing, no ulcers, no mottling Assessment and Plan Imp: DVT Hematoma hand and leg Plan: Would recommend insertion of filter and stopping the anticoagulation at this time. I have discussed the risks options and benefits of the procedure with the patient's daughter. The patient's daughter understands the risks options and benefits and agrees to the procedure.
--- NOTE | 2016-11-15 12:51 | History & Physical Bridge Note ---
H&P Re-Evaluation Bridge Note: I have examined the patient, reviewed the History & Physical and in the interval since the performance of the History & Physical I have noted the following changes of clinical significance: No changes noted
[2016-11-15] MEDS ORDERED: MIDAZOLAM HCL 1 MG/ML 2ML VIAL ONE (12:59)
[2016-11-15] MEDS ORDERED: NURSING VERBAL MED ORDER ONE (13:00)
[2016-11-15] MEDS ORDERED: FENTANYL CITRATE INJ 50 MCG/1 ML 2 ML VIAL ONE (13:02)
[2016-11-15] MEDS ORDERED: CEFAZOLIN SOD 1 GM VIAL ONE (13:04)
[2016-11-15] MEDS ORDERED: LIDOCAINE HCL 1% 20 ML VIAL INFIL ONE (13:16)
[2016-11-15] MEDS ORDERED: EpHEDrine SULFATE 50MG/5ML SYR ONE (13:20)
[2016-11-15] MEDS ORDERED: IODIXANOL (VISIPAQUE) 270 MG/ML 50ML IV ONE (13:25)
--- NOTE | 2016-11-15 13:26 | [facility] Operative Report ---
Operative Report Operative Date Nov 15, 2016. Pre-Operative Diagnosis Acute DVT, Contraindication to anticoagulation Post-Operative Diagnosis Same Procedure(s) Performed Insertion of Vena Cava Filter, Right Femoral Approach Ultrasound Localization of Right Femoral Vein Fluoscopy for Positioning Surgeon Dionna Sizing Machine And Drier Operator Surgeon(s) Tiffany Reyez MD Estimated Blood Loss 0 Findings filter in infrarenal cava, no cava clot seen Specimens None Anesthesia MAC Complication(s) None Disposition Indications This patient's the 85-year-old female who was started on Lovenox for acute DVT. She subsequently had a bleed into her leg and left hand. Anticoagulation is contraindicated. We recommended a filter insertion. This was discussed with the daughter. She understood the risks options and benefits and agrees with this procedure. Description of Procedure The patient was brought to the angio suite and placed in the supine position. The right groin was prepped and draped in the usual fashion. The right femoral vein was located with ultrasound. It was patent, compressed easily, and had no filling defects. The vein was then punctured under ultrasound visualization. A guidewire was then passed centrally into the inferior vena cava under fluoroscopic guidance. The puncture site was then dilated and the filter sheath inserted. It was passed to the infra renal vena cava. A venacavagram was done which showed no cava clot and an acceptable size. The iliac vein confluence was identified. The filter was then passed through the sheath and deployed in the infra renal vena cava in an upright position. Satisfied with the positioning of the filter, the sheath was removed. Pressure was applied to the puncture site. Adequate hemostatsis was obtained and a sterile dressing was applied. I attest to the content of the Intraoperative Record and any orders documented therein. Any exceptions are noted below.
[2016-11-15] MEDS ORDERED: ONDANSETRON INJ 2 MG/ML 2 ML VIAL ONE (13:45)
[2016-11-15] MEDS ORDERED: ROCURONIUM BROMIDE 10 MG/ML 5 ML VIAL ONE (13:56)
--- NOTE | 2016-11-15 14:56 | Anesthesiology Progress Note ---
Anesthesia Post Op Note Date & Time Nov 15, 2016 at 14:53 Vital Signs Pain Intensity: 4.0 Vital Signs Past 12 Hours Date Time Temp Pulse Resp B/P (MAP) Pulse Ox O2 Delivery O2 Flow Rate FiO2 11/15/16 14:30 36.2 68 16 111/67 100 Oxymask 10 11/15/16 08:40 69 16 146/71 (96) 94 Room Air 11/15/16 08:30 93 11/15/16 06:04 37.1 67 16 117/71 (86) 93 Room Air Notes Mental Status: see Notes Pt Amnestic to Procedure: Yes Nausea / Vomiting: adequately controlled Pain: adequately controlled Airway Patency, RR, SpO2: stable & adequate BP & HR: stable & adequate Hydration State: stable & adequate Anesthetic Complications: no major complications apparent Pt responds to verbal, similar to pre-op. VSS. Will discharge to floor after routine PACU stay.
[2016-11-15] MEDS: PRAVASTATIN SOD 10 MG TAB PO SCH (21:00)
[2016-11-15] MEDS: GABAPENTIN 100 MG CAP PO SCH (21:15)
--- NOTE | 2016-11-15 21:18 | Progress Note ---
Medicine Progress Note Date & Time of Visit: Nov 15, 2016 at ~ 18:00 . Subjective Underwent evacuation of left hand hematoma and IVC filter placement. Sedated postoperatively. . Objective Last 8 Hrs Date Time Temp Pulse Resp B/P (MAP) Pulse Ox O2 Delivery O2 Flow Rate FiO2 11/15/16 19:10 36.6 80 16 113/70 (84) 95 Nasal Cannula 2.0 11/15/16 18:10 36.4 78 16 116/68 (84) 100 Nasal Cannula 2.0 11/15/16 17:11 36.3 72 16 108/68 (81) 100 Nasal Cannula 2.0 11/15/16 16:39 36.3 66 16 113/64 (80) 100 Nasal Cannula 2.0 11/15/16 16:10 Nasal Cannula 2.0 11/15/16 15:50 59 16 103/56 99 Nasal Cannula 2 11/15/16 15:40 59 16 102/54 99 Nasal Cannula 2 11/15/16 15:30 59 16 103/56 99 Nasal Cannula 2 11/15/16 15:20 59 16 107/66 99 Nasal Cannula 2 11/15/16 15:10 36.1 67 16 106/68 91 Room Air 11/15/16 15:00 67 16 99/55 95 Room Air 11/15/16 14:50 67 16 119/56 95 Oxymask 10 11/15/16 14:40 81 16 110/62 100 Oxymask 10 11/15/16 14:30 36.2 68 16 111/67 100 Oxymask 10 11/15/16 14:30 36.2 81 16 111/67 100 Oxymask 10 Physical Exam: General- no distress Lungs- clear Heart- regular with occasional ectopy; II/ systolic murmur at base Abdomen- soft, nontender Extremities- swelling, ecchymosis LLE Neuro- sedated postoperatively . Laboratory Results: Last 24 Hours Test 11/15/16 07:55 11/15/16 11:24 White Blood Count 4.09 K/uL Red Blood Count 3.16 M/uL Hemoglobin 8.9 g/dL Hematocrit 28.2 % Mean Corpuscular Volume 89.2 fL Mean Corpuscular Hemoglobin 28.2 pg Mean Corpuscular Hemoglobin Concent 31.6 g/dl RDW Standard Deviation 51.6 fL RDW Coefficient of Variation 15.9 % Platelet Count 263 K/uL Mean Platelet Volume 8.7 fL Heparin Anti-Xa Act, Low Molec Wt 0.33 IU/ML Sodium Level 141 mmol/L 139 mmol/L Potassium Level 4.6 mmol/L 4.4 mmol/L Chloride Level 109 mmol/L 108 mmol/L Carbon Dioxide Level 24 mmol/L 26 mmol/L Anion Gap 8.0 mmol/L 5.0 mmol/L Blood Urea Nitrogen 23 mg/dl 22 mg/dl Creatinine 1.20 mg/dl 1.20 mg/dl Est Creatinine Clear Calc Drug Dose 26.1 ml/min 26.1 ml/min Estimated GFR () 47.1 47.1 Estimated GFR (Non- 40.6 40.6 BUN/Creatinine Ratio 19.0 18.6 Random Glucose 86 mg/dl 86 mg/dl Calcium Level 8.1 mg/dl 8.0 mg/dl Assessment & Plan COAGULOPATHY Secondary to therapy with enoxaparin. Bleeding from gums and multiple ecchymoses. Large hematoma dorsum left hand- evacuated by Orthopedics. Best to avoid resumption of anticoagulants. DVT LOWER EXTREMITIES Severe bruising/bleeding with enoxaparin therapy. Pertinent not to resume anticoagulants. IVC filter placed. ANEMIA Hemoglobin at time of admission was 8.3. Acute blood loss anemia. Received 1 unit of packed RBCs. Hemoglobin this morning 8.9. Follow. DEMENTIA Monitor for delirium. VTE PROPHYLAXIS No anticoagulants due to severe bruising and bleeding. No mechanical prophylaxis due to acute DVTs. IVC filter placed. DISPOSITION Expected return to [facility] when medically stable. Daughter given update by phone this evening. . Current Inpatient Medications: Current Inpatient Medications Medications (Trade) Dose Ordered Sig/Mkie Route Start Time Stop Time Status Last Admin Dose Admin Acetaminophen (Tylenol Tab) 650 mg Q4H PRN PO 11/14/16 14:15 12/14/16 14:14 Ondansetron HCl (Zofran Inj) 4 mg Q6H PRN IV 11/14/16 14:15 12/14/16 14:14 Amlodipine Besylate (Norvasc Tab) 5 mg QAM PO 11/15/16 09:00 12/15/16 08:59 Cholecalciferol (Vitamin D Tab) 1,000 inter.unit DAILY PO 11/15/16 09:00 12/15/16 08:59 Cyanocobalamin (Vitamin B-12 Tab) 500 mcg DAILY PO 11/15/16 09:00 12/15/16 08:59 Gabapentin (Neurontin Cap) 100 mg HS PO 11/14/16 21:00 12/14/16 20:59 11/14/16 20:34 100 MG Polyethylene (Miralax Powder Packet) 17 gm DAILY PO 11/15/16 09:00 12/15/16 08:59 Pravastatin Sodium (Pravachol Tab) 10 mg HS PO 11/14/16 21:00 12/14/16 20:59 11/14/16 20:34 10 MG Miscellaneous Information (Order Awaiting Action) 1 ea QS N/A 11/14/16 16:00 12/14/16 15:59 Citalopram Hydrobromide (celeXA TAB) 10 mg DAILY PO 11/15/16 09:00 12/15/16 08:59 Nebivolol (Bystolic Tab) 5 mg DAILY PO 11/15/16 09:00 12/15/16 08:59 Levothyroxine Sodium (Synthroid Tab) 100 mcg DAILYBB PO 11/15/16 06:00 12/15/16 06:59
[2016-11-16] VITALS (7 sets, daily range): BP systolic 112–119; BP diastolic 58–76; PULSE 72–98; TEMP 36.7–37.2; O2SAT 90–95
--- NOTE | 2016-11-16 01:34 | OPERATIVE REPORT ---
DATE OF OPERATION: 11/14/2016 INDICATION FOR PROCEDURE: The patient is an 85-year-old female who was recently diagnosed with bilateral lower extremity DVT, placed on weight-based Lovenox. She did have a history of an IV in her left hand, that had since been removed. She is at [facility]. She has developed progressive swelling in her hand to the point where she had a tense hematoma in her left hand. The hand demonstrates a massive hematoma on the dorsum of the hand with a large fracture blister and some weeping fluid at this time. There is no signs of cellulitis or infection. The skin is very thin to the point where the skin could be compromised with regard to probable skin necrosis if this hematoma was not drained. The patient is in poor health, and she was fully anticoagulated with Lovenox and it was felt that we needed to wait 24 hours to proceed with this to avoid postop bleeding complications. She was also scheduled for an IVC filter by Dr. Villareal concomitantly during this operation. PREOPERATIVE DIAGNOSIS: Left hand hematoma with compromised skin dorsum of the hand. POSTOPERATIVE DIAGNOSIS: Same. PROCEDURE: Incision and drainage hematoma left hand, placement of a Denise drain, placement of compressive bandage. SURGEON: Dioni Lovett MD BOTANICAL TECHNICAL OFFICER: None. ANESTHESIA: General. OPERATIVE PROCEDURE: The patient was in the operating room already after having had her IVC filter placed by Dr. Villareal. I felt that she may have too much pain with just IV sedation alone to do this procedure, so we went ahead and placed her under general endotracheal anesthesia. Then a pneumatic tourniquet was placed on the left upper forearm and left upper extremity was prepped and draped in sterile fashion. The hematoma extended from the MP joints all the way proximal to the wrist joint, it was about 3 cm to 3.5 cm raised off the dorsum of the hand. The skin was very thin in the central region, there was probably about 4-5 cm rounded area where the skin was very thin and there was a large fracture blister over that area that had ruptured already. She had a good capillary refill of the fingertips. There was no evidence of any compartment syndrome. This was all extra compartmental swelling subcutaneous. Her left upper extremity was prepped and draped. We used Betadine scrub and paint due to the weeping tissue. My initial plan was to make an incision in the good skin over the dorsum of the wrist to get into the hematoma and decompress it, so I made about a 3 cm incision there and the pressure from the hematoma coming out through the small incision toward the dorsum of the thin skin down another 3-4 cm over the dorsum of the hand, creating a curved skin tear. At this time, I used digital palpation to evacuate the hematoma from within the subcutaneous tissues, also used a curet and rongeur to remove the hematoma from the underlying tissues. I did not disturb any of the extensor tendons and we did not remove any fat tissue, just evacuated the large hematoma, irrigated this copiously with bulb syringe irrigation. This left a very thin area of dorsal skin, almost transparent skin with no significant fat tissue under it. We did place a Neeses drain and shortened it up and kept it proximally, so it would align proximal to the thin area of skin and then we repaired the skin with interrupted 4-0 nylon vertical mattress sutures and then I placed Adaptic and some Xeroform on top of that and then we fluffed up 4 x 4 dressings to make a large fluffed compressive type dressing over the dorsum of the hand to almost treat the skin like a skin graft, and then went ahead and placed ABDs and sterile Webril on top of that layer, left the tourniquet down. The patient had good capillary refill in all digits. The patient tolerated the procedure well at the time of this dictation. I attest to the content of the Intraoperative Record and any orders documented therein. Any exceptions are noted below. GUNJAN
[2016-11-16] MEDS: LEVOTHYROXINE 100 MCG TAB PO SCH (05:49)
[2016-11-16 07:15] LABS: HEMATOCRIT 29.9 % (37-47)
[2016-11-16 07:50] LABS: BUN/CREATININE RATIO 17.6 (10-20); CALCIUM 8.5 mg/dl (8.5-10.1); CREATININE 1.2 mg/dl (0.60-1.20); POTASSIUM 4.8 mmol/L (3.5-5.1)
--- NOTE | 2016-11-16 08:25 | Anesthesiology Progress Note ---
Anesthesia Post Op Note Date & Time Nov 16, 2016 at 08:25 Vital Signs Vital Signs Past 12 Hours Date Time Temp Pulse Resp B/P (MAP) Pulse Ox O2 Delivery O2 Flow Rate FiO2 11/16/16 07:53 36.7 74 16 112/58 (76) 94 Room Air 11/16/16 03:41 37.2 77 15 116/76 (89) 95 Room Air 11/16/16 00:00 Nasal Cannula 1.0 11/15/16 22:58 37.2 99 16 112/70 (84) 96 Nasal Cannula 1.0 Notes Mental Status: alert / awake / arousable, participated in evaluation Pt Amnestic to Procedure: Yes Nausea / Vomiting: adequately controlled Pain: adequately controlled Airway Patency, RR, SpO2: stable & adequate BP & HR: stable & adequate Hydration State: stable & adequate Anesthetic Complications: no major complications apparent
[2016-11-16] MEDS: CITALOPRAM 20 MG TAB PO SCH (08:48)
[2016-11-16] MEDS: CHOLECALCIFEROL 1000 INTER.UNIT TAB PO SCH (08:48)
[2016-11-16] MEDS: CYANOCOBALAMIN 500 MCG TAB (VIT B-12) PO SCH (08:48)
[2016-11-16] MEDS: NEBIVOLOL HCL 5 MG TAB PO SCH (08:48)
[2016-11-16] MEDS: AMLODIPINE BESYLATE 5 MG TAB PO SCH (08:49)
[2016-11-16] MEDS: POLYETHYLENE (MIRALAX) 17 GM PACK PO SCH (08:55)
--- NOTE | 2016-11-16 11:11 | Orthopedic Progress Note ---
Orthopedic Progress Note Date of Service Nov 16, 2016. Subjective Post OP Day: 1 Additional Notes: Pt lying in bed. Sleeping. Awakens to voice command but does not follow command. Was apparently somewhat combative last night. Currently she is resting comfortably. Objective Left hand with bulkly dressing. No drainage on dressing. Cap refill around 2 seconds. Date Time Temp Pulse Resp B/P (MAP) Pulse Ox O2 Delivery O2 Flow Rate FiO2 11/16/16 08:55 94 Room Air 11/16/16 08:00 Room Air 11/16/16 07:53 36.7 74 16 112/58 (76) 94 Room Air 11/16/16 03:41 37.2 77 15 116/76 (89) 95 Room Air 11/16/16 00:00 Nasal Cannula 1.0 11/15/16 22:58 37.2 99 16 112/70 (84) 96 Nasal Cannula 1.0 11/15/16 19:10 36.6 80 16 113/70 (84) 95 Nasal Cannula 2.0 11/15/16 18:10 36.4 78 16 116/68 (84) 100 Nasal Cannula 2.0 11/15/16 17:11 36.3 72 16 108/68 (81) 100 Nasal Cannula 2.0 11/15/16 16:39 36.3 66 16 113/64 (80) 100 Nasal Cannula 2.0 11/15/16 16:10 Nasal Cannula 2.0 11/15/16 15:50 59 16 103/56 99 Nasal Cannula 2 11/15/16 15:40 59 16 102/54 99 Nasal Cannula 2 11/15/16 15:30 59 16 103/56 99 Nasal Cannula 2 11/15/16 15:20 59 16 107/66 99 Nasal Cannula 2 11/15/16 15:10 36.1 67 16 106/68 91 Room Air 11/15/16 15:00 67 16 99/55 95 Room Air 11/15/16 14:50 67 16 119/56 95 Oxymask 10 11/15/16 14:40 81 16 110/62 100 Oxymask 10 11/15/16 14:30 36.2 68 16 111/67 100 Oxymask 10 11/15/16 14:30 36.2 81 16 111/67 100 Oxymask 10 Laboratory Results 24 Hours: Test 8/11/17 06:58 Hematocrit 29.9 % Hemoglobin 9.3 g/dL Assessment & Plan Assessment: POD 1 s/p : Incision and drainage hematoma left hand, placement of a Denise drain, placement of compressive bandage Plan: Dressing change tomorrow. Dr Reddy to assess as well tomorrow. ? need for further surgery.
--- NOTE | 2016-11-16 20:21 | Progress Note ---
Medicine Progress Note Date & Time of Visit: Nov 16, 2016 at ~ 16:00 . Subjective More alert. Confused. Denies pain, cough, SOB, nausea, vomiting. Minimal oral intake with assistance. . Objective Last 8 Hrs Date Time Temp Pulse Resp B/P (MAP) Pulse Ox O2 Delivery O2 Flow Rate FiO2 11/16/16 16:30 94 Room Air 11/16/16 15:55 36.7 75 16 113/68 (83) 94 Room Air Physical Exam: General- no distress Lungs- clear Heart- RRR; II/ systolic murmur at base Abdomen- soft, nontender Extremities- swelling, ecchymosis LLE Neuro- more alert; confused . Laboratory Results: Last 24 Hours Test 11/16/16 06:58 Hemoglobin 9.3 g/dL Hematocrit 29.9 % Sodium Level 141 mmol/L Potassium Level 4.8 mmol/L Chloride Level 108 mmol/L Carbon Dioxide Level 25 mmol/L Anion Gap 8.0 mmol/L Blood Urea Nitrogen 21 mg/dl Creatinine 1.20 mg/dl Est Creatinine Clear Calc Drug Dose 26.1 ml/min Estimated GFR () 47.1 Estimated GFR (Non- 40.6 BUN/Creatinine Ratio 17.6 Random Glucose 76 mg/dl Calcium Level 8.5 mg/dl Assessment & Plan COAGULOPATHY Presented with bleeding from gums and multiple ecchymoses. Large hematoma dorsum left hand. Secondary to therapy with enoxaparin. Best to avoid resumption of anticoagulants. LARGE HEMATOMA LEFT HAND Evacuated by Orthopedics. DVT LOWER EXTREMITIES Severe bruising/bleeding with enoxaparin therapy. Pertinent not to resume anticoagulants. IVC filter placed. ANEMIA Hemoglobin at time of admission was 8.3. Acute blood loss anemia. Received 1 unit of packed RBCs. Hemoglobin this morning 9.3. Follow. DEMENTIA Monitor for delirium. VTE PROPHYLAXIS No anticoagulants due to severe bruising and bleeding. No mechanical prophylaxis due to acute DVTs. IVC filter placed. DISPOSITION Expected return to [facility] when medically stable. . Current Inpatient Medications: Current Inpatient Medications Medications (Trade) Dose Ordered Sig/Mike Route Start Time Stop Time Status Last Admin Dose Admin Acetaminophen (Tylenol Tab) 650 mg Q4H PRN PO 11/14/16 14:15 12/14/16 14:14 Ondansetron HCl (Zofran Inj) 4 mg Q6H PRN IV 11/14/16 14:15 12/14/16 14:14 Amlodipine Besylate (Norvasc Tab) 5 mg QAM PO 11/15/16 09:00 12/15/16 08:59 11/16/16 08:49 5 MG Cholecalciferol (Vitamin D Tab) 1,000 inter.unit DAILY PO 11/15/16 09:00 12/15/16 08:59 11/16/16 08:48 1,000 INTER.UNIT Cyanocobalamin (Vitamin B-12 Tab) 500 mcg DAILY PO 11/15/16 09:00 12/15/16 08:59 11/16/16 08:48 500 MCG Gabapentin (Neurontin Cap) 100 mg HS PO 11/14/16 21:00 12/14/16 20:59 11/15/16 21:15 100 MG Polyethylene (Miralax Powder Packet) 17 gm DAILY PO 11/15/16 09:00 12/15/16 08:59 11/16/16 08:55 17 GM Pravastatin Sodium (Pravachol Tab) 10 mg HS PO 11/14/16 21:00 12/14/16 20:59 11/14/16 20:34 10 MG Miscellaneous Information (Order Awaiting Action) 1 ea QS N/A 11/14/16 16:00 12/14/16 15:59 Citalopram Hydrobromide (celeXA TAB) 10 mg DAILY PO 11/15/16 09:00 12/15/16 08:59 11/16/16 08:48 10 MG Nebivolol (Bystolic Tab) 5 mg DAILY PO 11/15/16 09:00 12/15/16 08:59 11/16/16 08:48 5 MG Levothyroxine Sodium (Synthroid Tab) 100 mcg DAILYBB PO 11/15/16 06:00 12/15/16 06:59
[2016-11-16] MEDS: GABAPENTIN 100 MG CAP PO SCH (21:00)
[2016-11-16] MEDS: PRAVASTATIN SOD 10 MG TAB PO SCH (21:00)
[2016-11-17] MEDS: LEVOTHYROXINE 100 MCG TAB PO SCH (05:30)
[2016-11-17 06:51] VITALS: BP 130/79; PULSE 85; TEMP 37; O2SAT 92
[2016-11-17 07:41] LABS: HEMATOCRIT 30.7 % (37-47); MEAN CELL VOLUME 90.8 fL (80-100); MEAN CORPUSCULAR HEMOGLOBIN 28.7 pg (25-34); MEAN CORPUSCULAR HGB CONC 31.6 g/dl (32-36); MEAN PLATELET VOLUME 8.6 fL (7.4-10.4); PLATELET COUNT 264 K/uL (130-400); RED BLOOD COUNT 3.38 M/uL (4.2-5.4); WHITE BLOOD COUNT 15.63 K/uL (4.8-10.8)
[2016-11-17 08:10] LABS: BUN/CREATININE RATIO 21.1 (10-20); CALCIUM 8.6 mg/dl (8.5-10.1); CREATININE 1.3 mg/dl (0.60-1.20); POTASSIUM 4.7 mmol/L (3.5-5.1)
[2016-11-17] MEDS ORDERED: SODIUM CHLORIDE 0.9% 1000ML 1,000 ML IV SCH (08:30)
[2016-11-17 08:55] VITALS: BP 126/64; PULSE 77
[2016-11-17] MEDS: NEBIVOLOL HCL 5 MG TAB PO SCH (09:02)
[2016-11-17] MEDS: CITALOPRAM 20 MG TAB PO SCH (09:03)
[2016-11-17] MEDS: POLYETHYLENE (MIRALAX) 17 GM PACK PO SCH (09:03)
[2016-11-17] MEDS: AMLODIPINE BESYLATE 5 MG TAB PO SCH (09:04)
[2016-11-17] MEDS: CYANOCOBALAMIN 500 MCG TAB (VIT B-12) PO SCH (09:04)
[2016-11-17] MEDS: CHOLECALCIFEROL 1000 INTER.UNIT TAB PO SCH (09:05)
--- NOTE | 2016-11-17 09:53 | PROGRESS NOTE ---
DATE: 11/17/2016 DATE: 11/17/2016 SUBJECTIVE: Angeles is seen at the bedside today. She has appropriate amount of pain in the left hand. OBJECTIVE: LEFT HAND EXAMINATION: Shows loss of the superficial epidermis. She has no full thickness loss of skin, no evidence of exposed tendons. She has no evidence of reaccumulated hematoma. Drain is intact. Fingers are grossly warm and well perfused. ASSESSMENT: Postop day 2 status post incision and drainage of left hand dorsal hematoma. PLAN: We removed her drain today. Continue compressive dressing. I do not see the need for further surgery at this point in time. I feel likely skin loss will heal by secondary intention. She was placed in a dry sterile dressing with Adaptic. At this point, will continue to avoid anticoagulants.
[2016-11-17 15:30] VITALS: BP 116/69; PULSE 76; TEMP 36.9; O2SAT 97
--- NOTE | 2016-11-17 20:57 | Progress Note ---
Medicine Progress Note Date & Time of Visit: Nov 17, 2016 at 11:15 . Subjective Somnolent this morning. No fever. No new problems reported by staff. . Objective Last 8 Hrs Date Time Temp Pulse Resp B/P (MAP) Pulse Ox O2 Delivery O2 Flow Rate FiO2 11/17/16 15:30 36.9 76 16 116/69 (85) 97 Room Air 11/17/16 15:30 Room Air Physical Exam: General- no distress Lungs- clear Heart- RRR; II/ systolic murmur at base Abdomen- soft, nontender Extremities- swelling, ecchymosis LLE Neuro- somnolent . Laboratory Results: Last 24 Hours Test 11/17/16 07:33 White Blood Count 15.63 K/uL Red Blood Count 3.38 M/uL Hemoglobin 9.7 g/dL Hematocrit 30.7 % Mean Corpuscular Volume 90.8 fL Mean Corpuscular Hemoglobin 28.7 pg Mean Corpuscular Hemoglobin Concent 31.6 g/dl RDW Standard Deviation 52.4 fL RDW Coefficient of Variation 15.8 % Platelet Count 264 K/uL Mean Platelet Volume 8.6 fL Sodium Level 138 mmol/L Potassium Level 4.7 mmol/L Chloride Level 107 mmol/L Carbon Dioxide Level 25 mmol/L Anion Gap 6.0 mmol/L Blood Urea Nitrogen 27 mg/dl Creatinine 1.30 mg/dl Est Creatinine Clear Calc Drug Dose 24.1 ml/min Estimated GFR () 42.7 Estimated GFR (Non- 36.9 BUN/Creatinine Ratio 21.1 Random Glucose 115 mg/dl Calcium Level 8.6 mg/dl Assessment & Plan COAGULOPATHY Presented with bleeding from gums and multiple ecchymoses. Large hematoma dorsum left hand. Secondary to therapy with enoxaparin. Best to avoid resumption of anticoagulants. LARGE HEMATOMA LEFT HAND Evacuated by Orthopedics. DVT LOWER EXTREMITIES Severe bruising/bleeding with enoxaparin therapy. Pertinent not to resume anticoagulants. IVC filter placed. ANEMIA Hemoglobin at time of admission was 8.3. Acute blood loss anemia. Received 1 unit of packed RBCs. Hemoglobin this morning 9.7. Follow. DEMENTIA Monitor for delirium. LEUKOCYTOSIS White count this morning 15,630. Afebrile. Leukocytosis could be secondary to hematoma. Follow. Further evaluation if cytosis persists or if new symptoms develop. DEHYDRATION BUN and creatinine have risen to 27 and 1.3, respectively. PO intake is not good. IV hydration. Encourage PO fluids. VTE PROPHYLAXIS No anticoagulants due to severe bruising and bleeding. No mechanical prophylaxis due to acute DVTs. IVC filter placed. DISPOSITION Expected return to [facility] when medically stable. . Current Inpatient Medications: Current Inpatient Medications Medications (Trade) Dose Ordered Sig/Mike Route Start Time Stop Time Status Last Admin Dose Admin Acetaminophen (Tylenol Tab) 650 mg Q4H PRN PO 11/14/16 14:15 12/14/16 14:14 Ondansetron HCl (Zofran Inj) 4 mg Q6H PRN IV 11/14/16 14:15 12/14/16 14:14 Amlodipine Besylate (Norvasc Tab) 5 mg QAM PO 11/15/16 09:00 12/15/16 08:59 11/17/16 09:04 5 MG Cholecalciferol (Vitamin D Tab) 1,000 inter.unit DAILY PO 11/15/16 09:00 12/15/16 08:59 11/17/16 09:05 1,000 INTER.UNIT Cyanocobalamin (Vitamin B-12 Tab) 500 mcg DAILY PO 11/15/16 09:00 12/15/16 08:59 11/17/16 09:04 500 MCG Gabapentin (Neurontin Cap) 100 mg HS PO 11/14/16 21:00 12/14/16 20:59 11/16/16 21:00 100 MG Polyethylene (Miralax Powder Packet) 17 gm DAILY PO 11/15/16 09:00 12/15/16 08:59 11/17/16 09:03 17 GM Pravastatin Sodium (Pravachol Tab) 10 mg HS PO 11/14/16 21:00 12/14/16 20:59 11/16/16 21:00 10 MG Miscellaneous Information (Order Awaiting Action) 1 ea QS N/A 11/14/16 16:00 12/14/16 15:59 Citalopram Hydrobromide (celeXA TAB) 10 mg DAILY PO 11/15/16 09:00 12/15/16 08:59 11/17/16 09:03 10 MG Nebivolol (Bystolic Tab) 5 mg DAILY PO 11/15/16 09:00 12/15/16 08:59 11/17/16 09:02 5 MG Levothyroxine Sodium (Synthroid Tab) 100 mcg DAILYBB PO 11/15/16 06:00 12/15/16 06:59 11/17/16 05:30 100 MCG Sodium Chloride 1,000 ml @ 80 mls/hr [id number] IV 11/17/16 08:30 11/17/16 20:59 11/17/16 08:59 80 MLS/HR
[2016-11-17] MEDS: PRAVASTATIN SOD 10 MG TAB PO SCH (21:00)
[2016-11-17] MEDS: GABAPENTIN 100 MG CAP PO SCH (21:00)
[2016-11-17 22:52] LABS: URINE APPEARANCE CLOUDY (CLEAR); URINE BILIRUBIN NEG (NEG); URINE COLOR DK YELLOW; URINE EPITHELIAL CELL AUTO >30 /lpf (0-5); URINE NITRITE NEG (NEG); URINE SPECIFIC GRAVITY 1.024 (1.000-1.030); UROBILINOGEN NEG (NEG)
[2016-11-17 22:54] LABS: MANUAL MICROSCOPIC REQUIRED? NO; REVIEW REQ? YES
[2016-11-17 23:04] VITALS: BP 120/69
[2016-11-17 23:13] LABS: ZZURINE CULT IF INDIC CATH YES
[2016-11-18 02:33] VITALS: TEMP 36.8; O2SAT 94
[2016-11-18] MEDS: LEVOTHYROXINE 100 MCG TAB PO SCH (06:00)
[2016-11-18 06:18] LABS: HEMATOCRIT 27.6 % (37-47); MEAN CELL VOLUME 90.8 fL (80-100); MEAN CORPUSCULAR HEMOGLOBIN 28.3 pg (25-34); MEAN CORPUSCULAR HGB CONC 31.2 g/dl (32-36); MEAN PLATELET VOLUME 8.7 fL (7.4-10.4); PLATELET COUNT 245 K/uL (130-400); RED BLOOD COUNT 3.04 M/uL (4.2-5.4); WHITE BLOOD COUNT 8.64 K/uL (4.8-10.8)
[2016-11-18 07:02] LABS: CALCIUM 8.2 mg/dl (8.5-10.1); POTASSIUM 4.3 mmol/L (3.5-5.1)
--- NOTE | 2016-11-18 07:38 | Orthopedic Progress Note ---
Orthopedic Progress Note Date of Service Nov 18, 2016. Subjective Post OP Day: 3 Reports: pain controlled w PO medications, Denies: complaints, chest pain, SOB, nausea / vomiting, light headedness Objective LEFT HAND EXAMINATION: no change in exam since yesterday, there is loss of the superficial epidermis. She has no full thickness loss of skin, no evidence of exposed tendons. She has no evidence of reaccumulated hematoma. Zimmerman drain was removed yesterday. Fingers are grossly warm and well perfused. she has diffuse tenderness to the dorsum of the hand, she is able to wiggle her fingers with minimal discomfort. Date Time Temp Pulse Resp B/P (MAP) Pulse Ox O2 Delivery O2 Flow Rate FiO2 11/18/16 02:33 36.8 94 Room Air 11/18/16 00:30 Room Air 11/17/16 23:04 120/69 (86) 11/17/16 15:30 36.9 76 16 116/69 (85) 97 Room Air 11/17/16 15:30 Room Air 11/17/16 08:55 77 126/64 (84) Laboratory Results 24 Hours: Test 11/18/16 05:49 Hematocrit 27.6 % Hemoglobin 8.6 g/dL Assessment & Plan Assessment: POD 3 s/p : Incision and drainage hematoma left hand, placement of a Audrey drain, placement of compressive bandage -dressing changed yesterday and today. audrey drained was removed yesterday. will continue with compressive dressing, adaptec, 4x4, dk. at this point will cont to observe, no need for further surgery at this time. Continue to avoid anticoagulants.
[2016-11-18 07:44] VITALS: BP 128/72; PULSE 63; TEMP 36.9; O2SAT 96
[2016-11-18] MEDS: POLYETHYLENE (MIRALAX) 17 GM PACK PO SCH (10:07)
[2016-11-18] MEDS: CHOLECALCIFEROL 1000 INTER.UNIT TAB PO SCH (10:08)
[2016-11-18] MEDS: NEBIVOLOL HCL 5 MG TAB PO SCH (10:08)
[2016-11-18] MEDS: CITALOPRAM 20 MG TAB PO SCH (10:08)
[2016-11-18] MEDS: AMLODIPINE BESYLATE 5 MG TAB PO SCH (10:08)
[2016-11-18] MEDS: CYANOCOBALAMIN 500 MCG TAB (VIT B-12) PO SCH (10:08)
[2016-11-18 15:31] VITALS: BP 110/58; PULSE 56; TEMP 37; O2SAT 94
[2016-11-18] MEDS: GABAPENTIN 100 MG CAP PO SCH (20:28)
[2016-11-18] MEDS: PRAVASTATIN SOD 10 MG TAB PO SCH (20:28)
--- NOTE | 2016-11-18 20:28 | Progress Note ---
Medicine Progress Note Date & Time of Visit: Nov 18, 2016 at 09:40 . Subjective Needs encouragement with oral intake. Generally cooperative. No fever. Denies chest pain. No cough or shortness of breath. No nausea, vomiting, diarrhea. Denies hand pain. . Objective Last 8 Hrs Date Time Temp Pulse Resp B/P (MAP) Pulse Ox O2 Delivery O2 Flow Rate FiO2 11/18/16 15:50 Room Air 11/18/16 15:31 37.0 56 16 110/58 (75) 94 Room Air Physical Exam: General- no distress Lungs- clear Heart- RRR; II/ systolic murmur at base Abdomen- soft, nontender Extremities- swelling, ecchymosis LLE; left hand bandaged Neuro- awake, conversant, confused . Laboratory Results: Last 24 Hours Test 11/17/16 22:30 11/18/16 05:49 Urine Color DK YELLOW Urine Appearance CLOUDY Urine pH 5.0 Urine Specific [place] 1.024 Urine Protein TRACE Urine Glucose (UA) NEG Urine Ketones TRACE Urine Occult Blood 1+ Urine Nitrite NEG Urine Bilirubin NEG Urine Urobilinogen NEG Urine Leukocyte Esterase NEG Urine WBC (Auto) 1-5 /hpf Urine RBC (Auto) 0-4 /hpf Urine Hyaline Casts (Auto) 10-30 /lpf Urine Epithelial Cells (Auto) >30 /lpf Urine Bacteria (Auto) 1+ Urine Pathogenic Casts /lpf White Blood Count 8.64 K/uL Red Blood Count 3.04 M/uL Hemoglobin 8.6 g/dL Hematocrit 27.6 % Mean Corpuscular Volume 90.8 fL Mean Corpuscular Hemoglobin 28.3 pg Mean Corpuscular Hemoglobin Concent 31.2 g/dl RDW Standard Deviation 52.4 fL RDW Coefficient of Variation 15.9 % Platelet Count 245 K/uL Mean Platelet Volume 8.7 fL Sodium Level 141 mmol/L Potassium Level 4.3 mmol/L Chloride Level 111 mmol/L Carbon Dioxide Level 24 mmol/L Anion Gap 6.0 mmol/L Blood Urea Nitrogen 26 mg/dl Creatinine 1.00 mg/dl Est Creatinine Clear Calc Drug Dose 31.3 ml/min Estimated GFR () 58.7 Estimated GFR (Non- 50.6 BUN/Creatinine Ratio 26.0 Random Glucose 74 mg/dl Calcium Level 8.2 mg/dl Date/Time Source Procedure Growth Status 11/17/16 22:30 Urine,Catheterized Urine Culture Pending Received Assessment & Plan COAGULOPATHY Presented with bleeding from gums and multiple ecchymoses. Large hematoma dorsum left hand. Secondary to therapy with enoxaparin. Best to avoid resumption of anticoagulants. LARGE HEMATOMA LEFT HAND Evacuated by Orthopedics. DVT LOWER EXTREMITIES Severe bruising/bleeding with enoxaparin therapy. Pertinent not to resume anticoagulants. IVC filter placed. ANEMIA Hemoglobin at time of admission was 8.3. Acute blood loss anemia. Received 1 unit of packed RBCs. Hemoglobin this morning 8.6. Follow. DEMENTIA Monitor for delirium. LEUKOCYTOSIS White count this morning 15,630. Afebrile. Leukocytosis could be secondary to hematoma. Follow. Further evaluation if cytosis persists or if new symptoms develop. DEHYDRATION BUN and creatinine katie to 27 and 1.3, respectively. PO intake not very good. Received IV hydration. BUN and creatinine today 26 and 1.0, respectively Encourage PO fluids. Follow. VTE PROPHYLAXIS No anticoagulants due to severe bruising and bleeding. No mechanical prophylaxis due to acute DVTs. IVC filter placed. DISPOSITION Expected return to [facility] when medically stable. . Current Inpatient Medications: Current Inpatient Medications Medications (Trade) Dose Ordered Sig/Mike Route Start Time Stop Time Status Last Admin Dose Admin Acetaminophen (Tylenol Tab) 650 mg Q4H PRN PO 11/14/16 14:15 12/14/16 14:14 Ondansetron HCl (Zofran Inj) 4 mg Q6H PRN IV 11/14/16 14:15 12/14/16 14:14 Amlodipine Besylate (Norvasc Tab) 5 mg QAM PO 11/15/16 09:00 12/15/16 08:59 11/17/16 09:04 5 MG Cholecalciferol (Vitamin D Tab) 1,000 inter.unit DAILY PO 11/15/16 09:00 12/15/16 08:59 11/17/16 09:05 1,000 INTER.UNIT Cyanocobalamin (Vitamin B-12 Tab) 500 mcg DAILY PO 11/15/16 09:00 12/15/16 08:59 11/17/16 09:04 500 MCG Gabapentin (Neurontin Cap) 100 mg HS PO 11/14/16 21:00 12/14/16 20:59 11/16/16 21:00 100 MG Polyethylene (Miralax Powder Packet) 17 gm DAILY PO 11/15/16 09:00 12/15/16 08:59 11/17/16 09:03 17 GM Pravastatin Sodium (Pravachol Tab) 10 mg HS PO 11/14/16 21:00 12/14/16 20:59 11/16/16 21:00 10 MG Miscellaneous Information (Order Awaiting Action) 1 ea QS N/A 11/14/16 16:00 12/14/16 15:59 Citalopram Hydrobromide (celeXA TAB) 10 mg DAILY PO 11/15/16 09:00 12/15/16 08:59 11/17/16 09:03 10 MG Nebivolol (Bystolic Tab) 5 mg DAILY PO 11/15/16 09:00 12/15/16 08:59 11/17/16 09:02 5 MG Levothyroxine Sodium (Synthroid Tab) 100 mcg DAILYBB PO 11/15/16 06:00 12/15/16 06:59 11/17/16 05:30 100 MCG
[2016-11-18 22:45] VITALS: BP 117/61; PULSE 64; TEMP 37.1; O2SAT 94
[2016-11-19] MEDS: LEVOTHYROXINE 100 MCG TAB PO SCH (06:00)
[2016-11-19 07:02] LABS: HEMATOCRIT 28.3 % (37-47)
[2016-11-19 07:28] VITALS: BP 128/67; PULSE 72; TEMP 36.8; O2SAT 96
[2016-11-19 07:36] LABS: BUN/CREATININE RATIO 29.2 (10-20); CALCIUM 8.2 mg/dl (8.5-10.1); POTASSIUM 4.1 mmol/L (3.5-5.1)
[2016-11-19] MEDS: NEBIVOLOL HCL 5 MG TAB PO SCH (08:30)
[2016-11-19] MEDS: CYANOCOBALAMIN 500 MCG TAB (VIT B-12) PO SCH (08:30)
[2016-11-19] MEDS: AMLODIPINE BESYLATE 5 MG TAB PO SCH (08:30)
[2016-11-19] MEDS: CHOLECALCIFEROL 1000 INTER.UNIT TAB PO SCH (08:30)
[2016-11-19] MEDS: CITALOPRAM 20 MG TAB PO SCH (08:30)
[2016-11-19] MEDS: POLYETHYLENE (MIRALAX) 17 GM PACK PO SCH (08:31)
--- NOTE | 2016-11-19 12:19 | Orthopedic Progress Note ---
Orthopedic Progress Note Date of Service Nov 19, 2016. Subjective Post OP Day: 4 Additional Notes: Pt awake. Answering some questions appropriately. Family present. Wound Care team present. No complaints at the present time. Objective capillary refill less than 2 sec. Dressings removed by wound care team. Overall improvement since I last saw the hand. No overt drainage. Appears to be healing well. Moving her fingers well. States that she does not have any numbness or tingling in the fingers. Date Time Temp Pulse Resp B/P (MAP) Pulse Ox O2 Delivery O2 Flow Rate FiO2 11/19/16 08:07 Room Air 11/19/16 07:28 36.8 72 16 128/67 (87) 96 Room Air 11/19/16 00:05 Room Air 11/18/16 22:45 37.1 64 16 117/61 (79) 94 Room Air 11/18/16 15:50 Room Air 11/18/16 15:31 37.0 56 16 110/58 (75) 94 Room Air Laboratory Results 24 Hours: Test 11/19/16 06:18 Hematocrit 28.3 % Hemoglobin 8.9 g/dL Assessment & Plan Assessment: POD 4 s/p : Incision and drainage hematoma left hand, placement of a [place] drain. Plan: Continue daily dressing changes. Wound care team recommends xeroform over the wound rather than adaptic. Will need daily dressing changes at [facility]. Ortho will sign off for now. Please call with any questions.
--- NOTE | 2016-11-19 12:22 | Consultant Recommendations ---
Tie In Hand Recommendations Date of Service Nov 19, 2016. Tie In Hand Recommendations Daily dressing changes to left hand with xeroform gauze over incision area, 4x4 gauze, kerlix wrap, and dk wrap. If you notice increased erythema, purulent drainage, increased pain in the hand , please call Dr Lovett's office. Follow up with Dr Lovett in 7-10 days. Call for appt. [phone]
[2016-11-19 15:20] VITALS: BP 111/63; PULSE 73; TEMP 36.6; O2SAT 94
[2016-11-19] MEDS: PRAVASTATIN SOD 10 MG TAB PO SCH (20:20)
[2016-11-19] MEDS: GABAPENTIN 100 MG CAP PO SCH (20:20)
--- NOTE | 2016-11-19 21:20 | Progress Note ---
Medicine Progress Note Date & Time of Visit: Nov 19, 2016 at 14:20 . Subjective Alert. PO intake better. Denies hand pain. No fever. No cough or SOB. No nausea, vomiting, diarrhea. . Objective Last 8 Hrs Date Time Temp Pulse Resp B/P (MAP) Pulse Ox O2 Delivery O2 Flow Rate FiO2 11/19/16 15:25 Room Air 11/19/16 15:20 36.6 73 14 111/63 (79) 94 Room Air Physical Exam: General- no distress Lungs- clear Heart- RRR; II/ systolic murmur at base Abdomen- soft, nontender Extremities- swelling, ecchymosis LLE; left hand bandaged Neuro- awake, confused . Laboratory Results: Last 24 Hours Test 11/19/16 06:18 Hemoglobin 8.9 g/dL Hematocrit 28.3 % Sodium Level 142 mmol/L Potassium Level 4.1 mmol/L Chloride Level 111 mmol/L Carbon Dioxide Level 26 mmol/L Anion Gap 5.0 mmol/L Blood Urea Nitrogen 29 mg/dl Creatinine 1.00 mg/dl Est Creatinine Clear Calc Drug Dose 31.3 ml/min Estimated GFR () 58.7 Estimated GFR (Non- 50.6 BUN/Creatinine Ratio 29.2 Random Glucose 79 mg/dl Calcium Level 8.2 mg/dl Assessment & Plan COAGULOPATHY Presented with bleeding from gums and multiple ecchymoses. Large hematoma dorsum left hand. Secondary to therapy with enoxaparin. Best to avoid resumption of anticoagulants. LARGE HEMATOMA LEFT HAND Evacuated by Orthopedics. DVT LOWER EXTREMITIES Severe bruising/bleeding with enoxaparin therapy. Pertinent not to resume anticoagulants. IVC filter placed. ANEMIA Hemoglobin at time of admission was 8.3. Acute blood loss anemia. Received 1 unit of packed RBCs. Hemoglobin this morning 8.9. Follow. DEMENTIA Monitor for delirium. LEUKOCYTOSIS White count 11/17 15,630. Afebrile. Leukocytosis may have been secondary to hematoma. Follow. Further evaluation if cytosis persists or if new symptoms develop. DEHYDRATION BUN and creatinine katie to 27 and 1.3, respectively. PO intake not very good. Received IV hydration. BUN and creatinine today 29 and 1.0, respectively Encourage PO fluids. Follow. VTE PROPHYLAXIS No anticoagulants due to severe bruising and bleeding. No mechanical prophylaxis due to acute DVTs. IVC filter placed. DISPOSITION Expected return to [facility] when medically stable. . Current Inpatient Medications: Current Inpatient Medications Medications (Trade) Dose Ordered Sig/Mike Route Start Time Stop Time Status Last Admin Dose Admin Acetaminophen (Tylenol Tab) 650 mg Q4H PRN PO 11/14/16 14:15 12/14/16 14:14 Ondansetron HCl (Zofran Inj) 4 mg Q6H PRN IV 11/14/16 14:15 12/14/16 14:14 Amlodipine Besylate (Norvasc Tab) 5 mg QAM PO 11/15/16 09:00 12/15/16 08:59 11/19/16 08:30 5 MG Cholecalciferol (Vitamin D Tab) 1,000 inter.unit DAILY PO 11/15/16 09:00 12/15/16 08:59 11/19/16 08:30 1,000 INTER.UNIT Cyanocobalamin (Vitamin B-12 Tab) 500 mcg DAILY PO 11/15/16 09:00 12/15/16 08:59 11/19/16 08:30 500 MCG Gabapentin (Neurontin Cap) 100 mg HS PO 11/14/16 21:00 12/14/16 20:59 11/19/16 20:20 100 MG Polyethylene (Miralax Powder Packet) 17 gm DAILY PO 11/15/16 09:00 12/15/16 08:59 11/19/16 08:31 17 GM Pravastatin Sodium (Pravachol Tab) 10 mg HS PO 11/14/16 21:00 12/14/16 20:59 11/19/16 20:20 10 MG Miscellaneous Information (Order Awaiting Action) 1 ea QS N/A 11/14/16 16:00 12/14/16 15:59 Citalopram Hydrobromide (celeXA TAB) 10 mg DAILY PO 11/15/16 09:00 12/15/16 08:59 11/19/16 08:30 10 MG Nebivolol (Bystolic Tab) 5 mg DAILY PO 11/15/16 09:00 12/15/16 08:59 11/19/16 08:30 5 MG Levothyroxine Sodium (Synthroid Tab) 100 mcg DAILYBB PO 11/15/16 06:00 12/15/16 06:59 11/17/16 05:30 100 MCG
[2016-11-19 23:45] VITALS: BP 114/61; PULSE 76; TEMP 37.3; O2SAT 94
[2016-11-20] MEDS: LEVOTHYROXINE 100 MCG TAB PO SCH (05:34)
[2016-11-20 07:45] VITALS: BP 118/66; PULSE 68; TEMP 36.9; O2SAT 94
[2016-11-20 07:51] VITALS: O2SAT 94
[2016-11-20] MEDS: CYANOCOBALAMIN 500 MCG TAB (VIT B-12) PO SCH (08:33)
[2016-11-20] MEDS: NEBIVOLOL HCL 5 MG TAB PO SCH (08:33)
[2016-11-20] MEDS: AMLODIPINE BESYLATE 5 MG TAB PO SCH (08:33)
[2016-11-20] MEDS: POLYETHYLENE (MIRALAX) 17 GM PACK PO SCH (08:33)
[2016-11-20] MEDS: CHOLECALCIFEROL 1000 INTER.UNIT TAB PO SCH (08:33)
[2016-11-20] MEDS: CITALOPRAM 20 MG TAB PO SCH (08:36)
--- NOTE | 2016-11-20 11:09 | Progress Note ---
Medicine Progress Note Date & Time of Visit: Nov 20, 2016 at 09:45 . Subjective Pleasantly confused. Denies pain, cough, SOB, nausea, vomiting. PO intake better. No concerns reported by staff. . Objective Last 8 Hrs Date Time Temp Pulse Resp B/P (MAP) Pulse Ox O2 Delivery O2 Flow Rate FiO2 11/20/16 09:00 Room Air 11/20/16 07:51 94 Room Air 11/20/16 07:45 36.9 68 13 118/66 (83) 94 Room Air Physical Exam: General- no distress Lungs- clear Heart- RRR; II/ systolic murmur at base Abdomen- soft, nontender Extremities- swelling, ecchymosis LLE; left hand bandaged Neuro- awake, pleasantly confused . Assessment & Plan COAGULOPATHY Presented with bleeding from gums and multiple ecchymoses. Large hematoma dorsum left hand. Secondary to therapy with enoxaparin. Best to avoid resumption of anticoagulants. LARGE HEMATOMA LEFT HAND Evacuated by Orthopedics. DVT LOWER EXTREMITIES Severe bruising/bleeding with enoxaparin therapy. Pertinent not to resume anticoagulants. IVC filter placed. ANEMIA Hemoglobin at time of admission was 8.3. Acute blood loss anemia. Received 1 unit of packed RBCs. Hemoglobin 11/19 was 8.9. Discharge on FeSO4. Follow. DEMENTIA Monitor for delirium. LEUKOCYTOSIS White count 11/17 15,630. Afebrile. Leukocytosis may have been secondary to hematoma. Repeat WBC 8640 on 11/18. DEHYDRATION BUN and creatinine katie to 27 and 1.3, respectively. PO intake not very good. Received IV hydration. BUN and creatinine 11/19 were 29 and 1.0, respectively Encourage PO fluids. Follow. VTE PROPHYLAXIS No anticoagulants due to severe bruising and bleeding. No mechanical prophylaxis due to acute DVTs. IVC filter placed. DISPOSITION Arrangements being made for return to [facility]. Orthopedics follow-up with Dr. Lovett. . Current Inpatient Medications: Current Inpatient Medications Medications (Trade) Dose Ordered Sig/Mike Route Start Time Stop Time Status Last Admin Dose Admin Acetaminophen (Tylenol Tab) 650 mg Q4H PRN PO 11/14/16 14:15 12/14/16 14:14 Ondansetron HCl (Zofran Inj) 4 mg Q6H PRN IV 11/14/16 14:15 12/14/16 14:14 Amlodipine Besylate (Norvasc Tab) 5 mg QAM PO 11/15/16 09:00 12/15/16 08:59 11/20/16 08:33 5 MG Cholecalciferol (Vitamin D Tab) 1,000 inter.unit DAILY PO 11/15/16 09:00 12/15/16 08:59 11/20/16 08:33 1,000 INTER.UNIT Cyanocobalamin (Vitamin B-12 Tab) 500 mcg DAILY PO 11/15/16 09:00 12/15/16 08:59 11/20/16 08:33 500 MCG Gabapentin (Neurontin Cap) 100 mg HS PO 11/14/16 21:00 12/14/16 20:59 11/19/16 20:20 100 MG Polyethylene (Miralax Powder Packet) 17 gm DAILY PO 11/15/16 09:00 12/15/16 08:59 11/20/16 08:33 17 GM Pravastatin Sodium (Pravachol Tab) 10 mg HS PO 11/14/16 21:00 12/14/16 20:59 11/19/16 20:20 10 MG Miscellaneous Information (Order Awaiting Action) 1 ea QS N/A 11/14/16 16:00 12/14/16 15:59 Citalopram Hydrobromide (celeXA TAB) 10 mg DAILY PO 11/15/16 09:00 12/15/16 08:59 11/20/16 08:36 10 MG Nebivolol (Bystolic Tab) 5 mg DAILY PO 11/15/16 09:00 12/15/16 08:59 11/20/16 08:33 5 MG Levothyroxine Sodium (Synthroid Tab) 100 mcg DAILYBB PO 11/15/16 06:00 12/15/16 06:59 11/17/16 05:30 100 MCG
[2016-11-20] MEDS ORDERED: FERR325T5 PO (11:13)
[2016-11-20] MEDS ORDERED: ACET-1257 PO (11:13)
--- NOTE | 2016-11-20 11:24 | Discharge Instructions ---
Discharge Instructions Date of Service Nov 20, 2016. Admission Reason for Admission: multiple hematomas, acute blood loss anemia . Discharge Discharge Diagnosis / Problem: multiple hematomas, acute blood loss anemia Discharge Goals Goal(s): Decrease discomfort, Improve function, Improve disease control Activity Recommendations Activity Level: Assistance Required . Additional Information Patient informed of condition: Yes Advance Directives: Yes DNR: Yes Level of Care: Skilled Communicable Disease: No Prognosis: Improving Barlow Catheter: No Instructions / Follow-Up Instructions / Follow-Up Please see Ortho Instructions noted below. Thank you for receiving this patient in transfer. Please call if you have any questions. Alexander Ren . Current Hospital Diet Patient's current hospital diet: AHA Diet (Heart Healthy) Discharge Diet Recommended Diet: Regular Diet Diet Texture: Mechanical Soft (ground) Procedures Procedures Performed: incision and drainage of left hand hematoma insertion of IVC filter Pending Studies Studies pending at discharge: no Physician Orders On Transfer Special Precautions: skin precautions fall precautions aspiration precautions delirium precautions . Dressing Changes: See Ortho instructions noted below. Vital Signs: routine . Weigh: routine . Additional Orders: reposition at least q 2 hours heel and elbow protectors . Medical Emergencies . Who to Call and When: Medical Emergencies: If at any time you feel your situation is an emergency, please call 911 immediately. . Non-Emergent Contact Non-Emergency issues call your: Primary Care Provider, Hospital Doctor, Specialist (Orthopedic Surgeon) . . "Provider Documentation" section prepared by Alexander Ren. . Water Hauler Recommendations Water Hauler Recommendations: Daily dressing changes to left hand with xeroform gauze over incision area, 4x4 gauze, kerlix wrap, and dk wrap. If you notice increased erythema, purulent drainage, increased pain in the hand , please call Dr Lovett's office. Follow up with Dr Lovett in 7-10 days. Call for appt. [phone] Core Measure Problem Core Measures: None
--- NOTE | 2016-11-20 11:32 | Discharge Summary ---
Discharge Summary Date of Service Nov 20, 2016. Discharge Summary Admission Date: Nov 14, 2016 at 14:08 Discharge Date: Nov 20, 2016 Discharge Disposition: group home facility ([facility]) Principal Diagnosis: multiple hematomas acute blood loss anemia coagulopathy secondary to enoxaparin dehydration . 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 Procedures: transfusion 1 unit pRBC's evacuation hematoma left hand IVC filter . Consultations: Orthopedics with Dr. Lovett. Vascular Surgery with Dr. Villareal . Medication Reconciliation New Medications: Acetaminophen (Tylenol Extra Strength) 500 Mg Tab 500 MG PO Q6 PRN for Pain for 30 Days Ferrous Sulfate (Ferrous Sulfate) 325 Mg Tab 325 MG PO DAILY for 30 Days Take with lunch. Continued Medications: Amlodipine Besylate (Norvasc) 5 Mg Tab 5 MG PO QAM, TAB Aspirin (Aspirin Ec) 81 Mg Tab 81 MG PO DAILY Sbhcvpo-Icrovdbip-Ywbg (Calcium & Magnesium + Zin 334-134-5 mg) 1 Tab Tab 1 TAB PO DAILY Cholecalciferol (Vitamin D3) 1,000 Unit Tab 1 TAB PO DAILY for 30 Days, #30 TAB 5 Refills Citalopram Hydrobromide (Citalopram Hydrobromide) 10 Mg Tab 1 TAB PO DAILY for 30 Days, #30 TAB 3 Refills Cyanocobalamin (Vitamin B12 500MCG) 500 Mcg Tab 500 MCG PO DAILY, TAB Gabapentin (Neurontin) 100 Mg Cap 100 MG PO HS, CAP Levothyroxine Sodium (Levothyroxine Sodium) 100 Mcg Tab 100 MCG PO DAILY, TAB 3 Refills Nebivolol Hcl (Bystolic) 5 Mg Tab 5 MG PO DAILY, TAB Polyethylene (Miralax) 17 Gm Pow 17 GM PO DAILY Pravastatin Sodium (Pravastatin Sodium) 10 Mg Tab 1 TAB PO HS for 30 Days, TAB 5 Refills Discontinued Medications: Alendronate Sodium (Alendronate Sodium) 70 Mg Tab 70 MG PO WK Enoxaparin (Enoxaparin Sodium) 60 Mg/0.6 Ml Inj 60 MG SC DAILY for 10 Days, #20 SYR Admission Information HPI (per Admitting provider): 85 year old female who presents to the ER from [facility] for evaluation of left hand swelling. Patient has history of DVT dating back to 2013. She was admitted to [facility] about 2 months ago for convalescence following hospital admission. Patient had been on Coumadin however while at [facility] she was refusing several blood draws and also medications at times; therefore, Coumadin was stopped. Patient had developed BLLE edema and US was obtained on 11/11/16 that demonstrated BL DVTs. She was seen in the ER on 11/11/16 and was started on Lovenox 1mg/kg BID. Since that time , patient's left hand has developed a significant hematoma. She also has had noted bleeding around the gums. Patient has underlying dementia and history is limited from her. I did speak with Justo Pa PA-C from [facility] regarding the patient. He reports that at baseline patient is noncompliant, aggressive, and confused at times. Her mental status has been unchanged from baseline. She has not had any falls recently. No abdominal pain, nausea, vomiting, diarrhea, BRBPR, or dark tarry stools. No noticeable hematuria. In the ER, patient's hgb is found to be 8.3 (down from 10.0 on 11/11). She is hemodynamically stable. . Physical Exam (per Admitting): General Appearance: no apparent distress Head: normocephalic Eyes: normal inspection ENT: + pertinent finding (dried blood noted around patient's lips - patient declining to open mouth for further evaluation) Neck: supple, no JVD Respiratory/Chest: lungs clear, normal breath sounds, no respiratory distress Cardiovascular: regular rate, rhythm, + pertinent finding (+ 2 edema LLE) Abdomen/GI: normal bowel sounds, non tender, soft Extremities/Musculoskelatal: + pertinent finding (dorsal aspect of left hand with significant hematoma and ecchymosis, raised up ~ 3 inches, ecchymosis extending up the left forearm to the elbow, + left radial pulse and normal capillary refill; +2 edema noted to LLE, ecchymosis noted to the posterior aspect of the left calf, leg is soft, + 2 left pedal pulses) Neurologic/Psych: no motor/sensory deficits, alert (forgetful, poor insight) , + disoriented (to time) Skin: normal color, warm/dry Hospital Course COAGULOPATHY Presented with bleeding from gums and multiple ecchymoses. Large hematoma dorsum left hand. Secondary to therapy with enoxaparin. Best to avoid resumption of anticoagulants. LARGE HEMATOMA LEFT HAND Evacuated by Orthopedics. DVT LOWER EXTREMITIES Severe bruising/bleeding with enoxaparin therapy. Pertinent not to resume anticoagulants. IVC filter placed. ANEMIA Hemoglobin at time of admission was 8.3. Acute blood loss anemia. Received 1 unit of packed RBCs. Hemoglobin 11/19 was 8.9. Discharge on FeSO4. Follow. DEMENTIA Monitor for delirium. LEUKOCYTOSIS White count 11/17 15,630. Afebrile. Leukocytosis may have been secondary to hematoma. Repeat WBC 8640 on 11/18. DEHYDRATION BUN and creatinine katie to 27 and 1.3, respectively. PO intake not very good. Received IV hydration. BUN and creatinine 11/19 were 29 and 1.0, respectively Encourage PO fluids. Follow. VTE PROPHYLAXIS No anticoagulants due to severe bruising and bleeding. No mechanical prophylaxis due to acute DVTs. IVC filter placed. DISPOSITION Arrangements being made for return to [facility]. Orthopedics follow-up with Dr. Lovett. . Total time spent on discharge = 45 min. This includes examination of the patient, discharge planning, medication reconciliation, and communication with other providers. . Discharge Instructions Date of Service Nov 20, 2016. Admission Reason for Admission: multiple hematomas, acute blood loss anemia . Discharge Discharge Diagnosis / Problem: multiple hematomas, acute blood loss anemia Discharge Goals Goal(s): Decrease discomfort, Improve function, Improve disease control Activity Recommendations Activity Level: Assistance Required . Additional Information Patient informed of condition: Yes Advance Directives: Yes DNR: Yes Level of Care: Skilled Communicable Disease: No Prognosis: Improving Barlow Catheter: No Instructions / Follow-Up Instructions / Follow-Up Please see Ortho Instructions noted below. Thank you for receiving this patient in transfer. Please call if you have any questions. Alexander Ren . Current Hospital Diet Patient's current hospital diet: AHA Diet (Heart Healthy) Discharge Diet Recommended Diet: Regular Diet Diet Texture: Mechanical Soft (ground) Procedures Procedures Performed: incision and drainage of left hand hematoma insertion of IVC filter Pending Studies Studies pending at discharge: no Physician Orders On Transfer Special Precautions: skin precautions fall precautions aspiration precautions delirium precautions . Dressing Changes: See Ortho instructions noted below. Vital Signs: routine . Weigh: routine . Additional Orders: reposition at least q 2 hours heel and elbow protectors . Medical Emergencies . Who to Call and When: Medical Emergencies: If at any time you feel your situation is an emergency, please call 911 immediately. . Non-Emergent Contact Non-Emergency issues call your: Primary Care Provider, Hospital Doctor, Specialist (Orthopedic Surgeon) . . "Provider Documentation" section prepared by Alexander Ren. . Test Boring Crew Chief Recommendations Test Boring Crew Chief Recommendations: Daily dressing changes to left hand with xeroform gauze over incision area, 4x4 gauze, kerlix wrap, and dk wrap. If you notice increased erythema, purulent drainage, increased pain in the hand , please call Dr Lovett's office. Follow up with Dr Lovett in 7-10 days. Call for appt. [phone] Core Measure Problem Core Measures: None Additional Copies To Dioni Lovett M.D.
[2016-11-20 12:37] VITALS: BP 118/66; PULSE 68; TEMP 36.9; O2SAT 94
[2016-11-20 15:15] VITALS: BP 106/59; PULSE 68; TEMP 36.5; O2SAT 95
== END 2016-11-20 17:56 | DRG 803 ==
LOC: EDBD 11:05 → C.EDC 11:07 → C.MSN 14:08 → EDBEDREQ 14:34 → EDBEDREQSVC 14:34 → ENRESERV 14:47 → EDBEDREQ 15:03
PROVIDERS: ADMIT Hospitalist; ATTEND Hospitalist
PROC: 06V03DZ Restriction of Inferior Vena Cava with Intraluminal Device, Percutaneous Approach (ICD-10-PCS; principal; 2016-11-15 12:00)
PROC: 0J9K00Z Drainage of Left Hand Subcutaneous Tissue and Fascia with Drainage Device, Open Approach (ICD-10-PCS; principal; 2016-11-15 12:00)
DX: D68.32 Hemorrhagic disorder due to extrinsic circulating anticoagulants (principal); L03.113 Cellulitis of right upper limb; D62 Acute posthemorrhagic anemia; I82.402 Acute embolism and thrombosis of unspecified deep veins of left lower extremity; M79.81 Nontraumatic hematoma of soft tissue; N18.3 Chronic kidney disease, stage 3 (moderate); Z86.718 Personal history of other venous thrombosis and embolism; E78.5 Hyperlipidemia, unspecified; E03.9 Hypothyroidism, unspecified; I12.9 Hypertensive chronic kidney disease with stage 1 through stage 4 chronic kidney disease, or unspecified chronic kidney disease; M81.0 Age-related osteoporosis without current pathological fracture; E55.9 Vitamin D deficiency, unspecified; Z79.01 Long term (current) use of anticoagulants; T45.515A Adverse effect of anticoagulants, initial encounter; Y92.129 Unspecified place in nursing home as the place of occurrence of the external cause; F03.90 Unspecified dementia, unspecified severity, without behavioral disturbance, psychotic disturbance, mood disturbance, and anxiety; D32.9 Benign neoplasm of meninges, unspecified; E86.0 Dehydration; M79.89 Other specified soft tissue disorders; Z79.899 Other long term (current) drug therapy

== ENCOUNTER 2017-02-12 17:24 | Emergency (ER) | payer OTHER ==
[~2017-02-12 17:24] MED LIST changes: +ACET-1256 PO; +AMOX1TAB42 PO; +CHOL1000 PO; -CHOL1CAP67 PO; -CYAN1SUB2 PO; +CYAN500T13 PO; +FERR325T5 PO; -FSM70 PO; -GABA-112 PO; +LCTX PO; -LVNIS60 SC; +MRLP17X PO; +PRAV10TA39 PO; -PRVC10 PO
[2017-02-12 17:25] VITALS: TEMP 36.6
[2017-02-12] MEDS ORDERED: OXGN (17:56)
--- NOTE | 2017-02-12 18:25 | DIAGNOSTIC IMAGING REPORT ---
LEFT TIBIA/FIBULA 2 VIEWS HISTORY: Left lower pain COMPARISON: None. FINDINGS: There is no fracture or dislocation. Diffuse soft tissue edema. 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 The bones are osteopenic. The tip of the femoral medullary zohreh is identified. No radiopaque foreign bodies. IMPRESSION: No fractures. Diffuse soft tissue edema. Electronically signed by: Berny Nath M.D. 02/12/2017 6:24 PM Dictated Date/Time: 02/12/2017 6:21 PM
[2017-02-12 18:42] LABS: BASO % 0.6 %; BASO ABS # 0.04 K/uL (0-0.2); EOS % 21.3 %; HEMATOCRIT 26.7 % (37-47); IG% 0.7 %; LYMPH % 12.7 %; MEAN CELL VOLUME 92.4 fL (80-100); MEAN CORPUSCULAR HGB CONC 30.3 g/dl (32-36); MEAN PLATELET VOLUME 9.2 fL (7.4-10.4); MONO % 8.5 %; NEUT % 56.2 %; PLATELET COUNT 286 K/uL (130-400); RED BLOOD COUNT 2.89 M/uL (4.2-5.4); WHITE BLOOD COUNT 7.08 K/uL (4.8-10.8)
[2017-02-12] MEDS ORDERED: CEPHALEXIN MONOHYDRATE 250 MG CAP PO ONE (18:45)
[2017-02-12 19:23] LABS: ANISOCYTOSIS PRESENT; COMPLETE YES; POLYCHROMASIA 1+; SCHISTOCYTES OCCASIONAL
[2017-02-12 19:40] LABS: BLOOD UREA NITROGEN 21 mg/dl (7-18); BUN/CREATININE RATIO 19.5 (10-20); C-REACTIVE PROTEIN 2.95 mg/dl (0-0.29); CALCIUM 8.4 mg/dl (8.5-10.1); CARBON DIOXIDE 23 mmol/L (21-32); CHLORIDE 117 mmol/L (98-107); CREATININE 1.08 mg/dl (0.60-1.20); GLUCOSE 96 mg/dl (70-99); SODIUM 144 mmol/L (136-145)
--- NOTE | 2017-02-12 20:10 | EMERGENCY ROOM VISIT NOTE ---
History Report prepared by Los: Michael De Anda Under the Supervision of: Dr. Timoteo Light M.D. First contact with patient: 17:35 Chief Complaint: LEG PAIN,LEG INJURY Stated Complaint: LEG PAIN History of Present Illness The patient is a 86 year old white female with a past medical history of DVT, hypothyroidism, CKD, HTN, osteoporosis, and dementia who presents to the ED with a cc of worsening left leg swelling beginning today. Patient is a resident at [facility]. Negative abdominal pain. Patient was previously on Warfarin and Lovenox. She has an IVC filter in place. HPI limited secondary to dementia. Source of History: patient History Limited By: dementia Position: leg (left) Quality: other (swelling) Timing: worsening Associated Symptoms: No abdominal pain Review of Systems ROS limited secondary to dementia. Past Medical & Surgical Medical Problems: (1) Cataract (2) CKD (chronic kidney disease), stage III (3) Dementia (4) DVT (deep venous thrombosis) (5) Dyslipidemia (6) HTN (hypertension) (7) Hypothyroidism (8) Meningioma (9) Osteoporosis (10) Pancreatic mass (11) Renal mass (12) Vitamin D deficiency Surgical Problems: (1) Distal radius fracture, left (2) Hx of tonsillectomy (3) Trochanteric fracture of femur Family History Cancer Heart disease Social History Smoking Status: Never Smoker Alcohol Use: none Housing Status: lives with family Current/Historical Medications Scheduled Amlodipine Besylate (Norvasc), 5 MG PO QAM Amoxicillin & Pot Clavulanate (Amoxicillin/Clavulanate P), 500 MG PO BIDM Aspirin (Aspirin Ec), 81 MG PO DAILY Uqwqmsf-Ewaaeeqdi-Tdyg (Calcium & Magnesium + Zin 334-134-5 mg), 1 TAB PO DAILY Cephalexin (Keflex), 1 CAP PO BID Cholecalciferol (Vitamin D3), 1 TAB PO DAILY Citalopram Hydrobromide (Citalopram Hydrobromide), 1 TAB PO DAILY Cyanocobalamin (Vitamin B12 500MCG), 500 MCG PO DAILY Ferrous Sulfate (Ferrous Sulfate), 325 MG PO DAILY Home O2 Therapy (Oxygen), 2 LITERS NA CONTINOUS Lactobacillus Acidophilus (Lactinex), 2 TAB PO BID Levothyroxine Sodium (Levothyroxine Sodium), 100 MCG PO DAILY Nebivolol Hcl (Bystolic), 5 MG PO DAILY Polyethylene (Miralax), 17 GM PO DAILY Pravastatin Sodium (Pravastatin Sodium), 1 TAB PO HS Scheduled PRN Acetaminophen (Tylenol), 500 MG PO Q6 PRN for Pain or Fever Allergies Coded Allergies: No Known Allergies (Unverified , 02/12/17) Physical Exam Vital Signs Date Time Temp Pulse Resp B/P (MAP) Pulse Ox O2 Delivery O2 Flow Rate FiO2 02/12/17 22:40 71 18 146/70 93 Room Air 02/12/17 21:11 68 16 105/56 92 Room Air 02/12/17 19:08 72 14 125/69 95 Nasal Cannula 2.0 02/12/17 18:05 64 02/12/17 17:25 95 Nasal Cannula 2.0 02/12/17 17:25 36.6 65 12 114/54 88 Room Air Physical Exam GENERAL: Awake, alert, well-appearing, NAD. Nasal canula in place. HENT: Normocephalic, atraumatic. EYES: Normal conjunctiva. Sclera non-icteric. NECK: Supple. No nuchal rigidity. FROM. RESPIRATORY: CTAB, no rhonchi, wheezing, crackles CARDIAC: RRR, no MRG ABDOMEN: Soft, NTND, BS+ MSK: No chest wall TTP. LLE swelling with erythema. Lower extremity pain. NVI SP /DP and tib nerves. NEURO: AOx2. GCS 15, CN 2-12 intact, moves all 4s on command SKIN: No rash or jaundice noted. Medical Decision & Procedures ER Provider Diagnostic Interpretation: Radiology results as stated below per my review and radiologist interpretation: LEFT TIBIA/FIBULA 2 VIEWS FINDINGS: There is no fracture or dislocation. Diffuse soft tissue edema. 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 The bones are osteopenic. The tip of the femoral medullary zohreh is identified. No radiopaque foreign bodies. IMPRESSION: No fractures. Diffuse soft tissue edema. Electronically signed by: Berny Nath M.D. 02/12/2017 6:24 PM LEFT LOWER EXTREMITY VENOUS DOPPLER FINDINGS: Nonocclusive peripheral thrombus seen within the common femoral vein. This suggests chronic thrombus. The left superficial femoral vein is patent. The left popliteal vein and calf veins were unable to be visualized due to patient's immobility and the lower extremity soft tissue swelling. There are suggestion of reversal of flow within the profunda femoris vein. IMPRESSION: 1. Nonocclusive peripheral thrombus within the common femoral vein. Therefore, this suggests chronic DVT. 2. No thrombus identified within the left superficial femoral vein. The popliteal vein and calf veins were unable to be visualized. 3. There is suggestion of reversal of flow within the profunda femoris vein. Electronically signed by: Berny Nath M.D. 02/12/2017 8:11 PM Laboratory Results 02/12/17 18:10 Red Blood Count 2.89, Mean Corpuscular Volume 92.4, Mean Corpuscular Hemoglobin 28.0, Mean Corpuscular Hemoglobin Concent 30.3, Mean Platelet Volume 9.2, Neutrophils (%) (Auto) 56.2, Lymphocytes (%) (Auto) 12.7, Monocytes (%) (Auto) 8.5, Eosinophils (%) (Auto) 21.3, Basophils (%) (Auto) 0.6, Neutrophils # (Auto ) 3.98, Lymphocytes # (Auto) 0.90, Monocytes # (Auto) 0.60, Eosinophils # (Auto ) 1.51, Basophils # (Auto) 0.04 02/12/17 18:10 Test 02/12/17 18:10 White Blood Count 7.08 K/uL (4.8-10.8) Red Blood Count 2.89 M/uL (4.2-5.4) Hemoglobin 8.1 g/dL (12.0-16.0) Hematocrit 26.7 % (37-47) Mean Corpuscular Volume 92.4 fL (80-100) Mean Corpuscular Hemoglobin 28.0 pg (25-34) Mean Corpuscular Hemoglobin Concent 30.3 g/dl (32-36) Platelet Count 286 K/uL (130-400) Mean Platelet Volume 9.2 fL (7.4-10.4) Neutrophils (%) (Auto) 56.2 % Lymphocytes (%) (Auto) 12.7 % Monocytes (%) (Auto) 8.5 % Eosinophils (%) (Auto) 21.3 % Basophils (%) (Auto) 0.6 % Neutrophils # (Auto) 3.98 K/uL (1.4-6.5) Lymphocytes # (Auto) 0.90 K/uL (1.2-3.4) Monocytes # (Auto) 0.60 K/uL (0.11-0.59) Eosinophils # (Auto) 1.51 K/uL (0-0.5) Basophils # (Auto) 0.04 K/uL (0-0.2) RDW Standard Deviation 62.3 fL (36.4-46.3) RDW Coefficient of Variation 18.9 % (11.5-14.5) Immature Granulocyte % (Auto) 0.7 % Immature Granulocyte # (Auto) 0.05 K/uL (0.00-0.02) Polychromasia 1+ Anisocytosis PRESENT Schistocytes OCCASIONAL Erythrocyte Sedimentation Rate 20 mm/hr (0-21) Anion Gap 4.0 mmol/L (3-11) Estimated GFR () 53.1 Estimated GFR (Non- 45.8 BUN/Creatinine Ratio 19.5 (10-20) Calcium Level 8.4 mg/dl (8.5-10.1) C-Reactive Protein 2.95 mg/dl (0-0.29) Laboratory results reviewed by me Medications Administered Medications (Trade) Dose Ordered Sig/Mike Route Start Time Stop Time Status Last Admin Dose Admin Cephalexin Monohydrate (Keflex Cap) 500 mg NOW ONCE PO 02/12/17 18:45 02/12/17 18:46 DC 02/12/17 19:04 500 MG ED Course 1738: The patient was evaluated in room A2. A complete history and physical exam was performed. 2020: I reevaluated the patient. She is resting comfortably. Discussed the patient's case with the patient's son. He states that he would not like invasive procedures, but is okay with non-invasive treatments. Discussed results and discharge instructions: they verbalized understanding and agreement. The patient is ready for discharge. Medical Decision The patient is a 86 year old white female with a past medical history of DVT, hypothyroidism, CKD, HTN, osteoporosis, and dementia who presents to the ED with a cc of worsening left leg swelling beginning today. Differential diagnosis: Etiologies such as DVT, musculoskeletal, infection, joint effusion, trauma, lymphedema, idiopathic, CHF, as well as others were entertained. Patient was seen and evaluated the bedside. Patient had a prior history of DVT and had been on Lovenox as well as Coumadin but is no longer on this. After speaking the patient's family member this was due to fall risks as well as her demented status. Patient was given some Keflex in addition to blood work completed along with a left lower extremity DVT ultrasound. Patient's DVT ultrasound did show a chronic DVT but nothing acute. Given that this is a chronic issue and the patient has an IVC filter I did speak with the patient's wishes in maker was her daughter. She lives not pursue any further anticoagulant therapy. Patient was given Keflex for home which will be given to her and her care facility. I did discuss the need to place an Elias wrap and elevate the extremity. I did speak with the vascular surgeon given the reverse flow. He stated this was not an acute issue. Patient's compartments were soft. Patient had good DP pulses. Patient's family member was given warning signs to return. Patient was given strict follow-up, discharge, and return precautions. All questions were answered. Patient was deemed suitable for outpatient follow-up at this time. Patient agreed with the plan of care and was safely discharged home. Medication Reconcilliation Current Medication List: was personally reviewed by me Blood Pressure Screening Patient's blood pressure: Normal blood pressure Blood pressure disposition: Did not require urgent referral Consults Time Called: 2017 Consulting Physician: Dr. Villareal -Vascular Surgery Returned Call: 2020 Discussed the patient's case. Dr. Villareal feels that the patient's findings are not acute. He will follow up with the patient as an outpatient. He recommends that the patient wear compression stockings at home. Impression Primary Impression: Chronic deep vein thrombosis (DVT) Additional Impressions: Leg swelling Cellulitis Scribe Attestation The scribe's documentation has been prepared under my direction and personally reviewed by me in its entirety. I confirm that the note above accurately reflects all work, treatment, procedures, and medical decision making performed by me. Departure Information Dispostion Home / Self-Care Prescriptions Cephalexin (KEFLEX) 500 Mg Cap 1 CAP PO BID for 7 Days, #14 CAP Prov: Timoteo Light M.D. 02/12/17 Referrals Ana Salazar M.D. (PCP) Patient Instructions Cellulitis Ch, ED Leg Swelling Unilateral, [facility] Additional Instructions Please return to the emergency department if you have worsening or recurrent symptoms not amenable to at-home treatment. Please call for a follow-up appointment with her primary care physician. Please take your medications as prescribed. If you have other concerns and/or complaints please feel free to also call your primary care physician's office or return the ED for further evaluation, management, and treatment. Please use ELIAS wrap and compression stockings. If culture results are not available at discharge, if they are positive for concern of infection, you will be informed of the results as soon as they are available. If you were seen between 11pm and 7AM all radiology reads will be re-read by our in house staff. If any major discrepancies are discovered, you will be notified. You have been examined and treated today on an emergency basis only. This is not a substitute for, or an effort to provide, complete comprehensive medical care. It is impossible to recognize and treat all injuries or illnesses in a single emergency department visit. It is therefore important that you follow up closely with [facility], your PCP, and/or your specialist(s). Call as soon as possible for an appointment. Thank you for your time and consideration. I look forward to speaking with you again soon. Please don't hesitate to call us if you have any questions. Problem Qualifiers Primary Impression: Chronic deep vein thrombosis (DVT) DVT location: lower extremity Affected thrombotic vein of extremity: femoral Laterality: left Qualified Codes: I82.512 - Chronic embolism and thrombosis of left femoral vein Additional Impressions: Cellulitis Site of cellulitis: extremity Site of cellulitis of extremity: lower extremity Laterality: left Qualified Codes: L03.116 - Cellulitis of left lower limb
[2017-02-12] MEDS ORDERED: CEPH-571 PO (20:25)
[2017-02-12 22:40] VITALS: BP 146/70; PULSE 71; O2SAT 93
== END 2017-02-12 23:26 | disposition home or self-care (01) ==
LOC: EDBD 17:24 → C.EDA 17:26
DX: I82.512 Chronic embolism and thrombosis of left femoral vein (principal); M79.89 Other specified soft tissue disorders; L03.116 Cellulitis of left lower limb; E03.9 Hypothyroidism, unspecified; M81.0 Age-related osteoporosis without current pathological fracture; N18.9 Chronic kidney disease, unspecified; I12.9 Hypertensive chronic kidney disease with stage 1 through stage 4 chronic kidney disease, or unspecified chronic kidney disease; F03.90 Unspecified dementia, unspecified severity, without behavioral disturbance, psychotic disturbance, mood disturbance, and anxiety; E78.5 Hyperlipidemia, unspecified; E55.9 Vitamin D deficiency, unspecified; Z80.9 Family history of malignant neoplasm, unspecified; Z82.49 Family history of ischemic heart disease and other diseases of the circulatory system; Z79.82 Long term (current) use of aspirin; Z79.899 Other long term (current) drug therapy; Z99.81 Dependence on supplemental oxygen